=== PATIENT | male | born 1970 | race Caucasian/White ===

== ENCOUNTER 2017-08-30 15:19 | Inpatient (IN) | payer OTHER, BC ==
[~2017-08-30] VITALS: Ht 172.7 cm; Wt 65.7 kg
[2017-08-30] VITALS (8 sets, daily range): BP systolic 126–139; BP diastolic 58–85; PULSE 92–113; RESP 16; TEMP 99–99.7; O2SAT 95–100
[~2017-08-30 15:19] MED LIST: DEXAMETHASONE SOD PHOS 4 MG/ML VIAL IV ONE; LACTATED RINGER'S 1000 ML INJ 2,000 ML IV ONE; ONDANSETRON HCL 4 MG/2 ML VIAL IV ONE; PHENYLEPH/NS 1000 MCG/10 ML SYR IV ONE; PHENYLEPHRINE HCL 10 MG/ML VIAL IV ONE; ROCURONIUM INJ 50 MG/5 ML SYRINGE IV PUSH ONE
[2017-08-30] MEDS ORDERED: ONDANSETRON HCL 4 MG/2 ML VIAL ONE (15:23)
[2017-08-30] MEDS ORDERED: MORPHINE SULFATE 4 MG/ML INJ ONE (15:23)
[2017-08-30] MEDS ORDERED: ETOMIDATE 20 MG/10 ML VIAL ONE (15:26)
[2017-08-30] MEDS ORDERED: PROPOFOL 1000 MG/100 ML INJ 100 ML ONE (15:26)
[2017-08-30] MEDS ORDERED: DIPHTH/TETANUS/ACEL PERTUSSIS (BOOSTER) 0.5 ML VIAL/PFS IM ONE (15:27)
[2017-08-30] MEDS ORDERED: ceFAZolin 2 GM PREMIX 50 ML ONE (15:39)
[2017-08-30] MEDS ORDERED: GENTAMICIN 80 MG PREMIX 100 ML ONE (15:40)
[2017-08-30] MEDS ORDERED: PROPOFOL 200 MG/20 ML AMP ONE ×2 (15:41→15:53)
[2017-08-30 16:02] LABS: AUTOMATED NEUTROPHIL # 9.4 TH/MM3 (1.8-7.7); BASOPHIL # 0.1 TH/MM3 (0-0.2); BASOPHIL % 0.4 % (0.0-2.0); EOSINOPHIL # 0.1 TH/MM3 (0-0.4); EOSINOPHIL % 0.8 % (0.0-4.0); HEMATOCRIT 43.8 % (39.0-51.0); HEMOGLOBIN 14.5 GM/DL (13.0-17.0); LYMPH % 30.5 % (9.0-44.0); LYMPHOCYTE # 4.6 TH/MM3 (1.0-4.8); MEAN CELL VOLUME 89.1 FL (80.0-100.0); MEAN CORPUSCULAR HEMOGLOBIN 29.4 PG (27.0-34.0); MEAN PLATELET VOLUME 8.4 FL (7.0-11.0); MONO % 5.6 % (0.0-8.0); MONOCYTE # 0.8 TH/MM3 (0-0.9); NEUT % 62.7 % (16.0-70.0); PLATELET COUNT 297 TH/MM3 (150-450); RED BLOOD COUNT 4.92 MIL/MM3 (4.50-5.90)
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
[2017-08-30] MEDS ORDERED: ceFAZolin 2 GM PREMIX 50 ML IV STA (16:14)
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
[2017-08-30] MEDS ORDERED: PROPOFOL 1000 MG/100 ML BTL IV ONE (16:15)
[2017-08-30] MEDS ORDERED: ETOMIDATE 20 MG/10 ML VIAL IV PUSH ONE (16:15)
[2017-08-30] MEDS ORDERED: GENTAMICIN/SOD CHL 80 MG/100 ML IV ONE (16:15)
[2017-08-30] MEDS ORDERED: SUCCINYLCHOLINE CHLORIDE 200 MG/10 ML VIAL IV ONE (16:15)
[2017-08-30] MEDS ORDERED: ROCURONIUM INJ 50 MG/5 ML VIAL IV ONE (16:15)
[2017-08-30] MEDS ORDERED: MORPHINE SULFATE 4 MG/ML INJ IV PUSH ONE (16:15)
[2017-08-30] MEDS ORDERED: ONDANSETRON HCL 4 MG/2 ML VIAL IV PUSH ONE (16:15)
[2017-08-30] MEDS ORDERED: SODIUM CHLOR 0.9% 1000 ML INJ 1,000 ML IV ONE (16:15)
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
[2017-08-30 16:18] LABS: INTERNATIONAL NORMALIZED RATIO 1.1 RATIO; PROTHROMBIN TIME - PATIENT 11.1 SEC (9.8-11.6)
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
[2017-08-30] MEDS ORDERED: IOHEXOL 350 MG/ML 10 ML VIAL (for RAD DIAG) IVCONTRAST ONE (16:25)
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
[2017-08-30] MEDS ORDERED: SENNOSIDES 8.6 MG TAB PO PRN (16:45)
[2017-08-30] MEDS ORDERED: fentaNYL DRIP 250 ML IV PRN ×2 (16:45→17:15)
[2017-08-30] MEDS ORDERED: BISACODYL 10 MG SUPP RECTAL PRN (16:45)
[2017-08-30] MEDS ORDERED: LACTULOSE SYRUP 20 GM/30 ML CUP PO PRN (16:45)
[2017-08-30] MEDS ORDERED: MISCELLANEOUS NURSING INFORMATION XX SCH (16:45)
[2017-08-30] MEDS: PANTOPRAZOLE SODIUM 40 MG VIAL IV PUSH SCH (16:45)
[2017-08-30] MEDS ORDERED: PROPOFOL 1000 MG/100 ML INJ 100 ML IV PRN ×2 (16:45→17:15)
[2017-08-30] MEDS ORDERED: CHLORHEXIDINE GLUCONATE 2 % 1 PACK (2 CLOTHS) TOP PRN (16:45)
[2017-08-30] MEDS ORDERED: MAGNESIUM HYDROXIDE SUSP 30 ML CUP PO PRN (16:45)
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
[2017-08-30] MEDS ORDERED: KETAMINE HCL 500 MG/5 ML VIAL ONE (18:19)
[2017-08-30] MEDS ORDERED: fentaNYL CITRATE 250 MCG/5 ML AMP ONE (18:19)
[2017-08-30] MEDS ORDERED: GENTAMICIN SULFATE 80 MG/2 ML VIAL ONE (18:20)
[2017-08-30] MEDS ORDERED: oxyCODONE/ACETAMINOPHEN 5 MG/325 MG TAB PO PRN ×2 (20:30)
[2017-08-30] MEDS ORDERED: MORPHINE SULFATE 8 MG/ML INJ IV PUSH PRN (20:30)
[2017-08-30] MEDS ORDERED: SODIUM CHLORIDE 0.9% FLUSH 10 ML FLUSH IV FLUSH PRN (20:30)
[2017-08-30] MEDS ORDERED: KETOROLAC TROMETHAMINE 30 MG/ML (IVP) VIAL IVP ONE (20:30)
[2017-08-30] MEDS ORDERED: ONDANSETRON HCL 4 MG/2 ML VIAL IV PUSH PRN (20:30)
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
[2017-08-30] MEDS: DOCUSATE SODIUM 50 MG/SENNA 8.6 MG TAB PO SCH (21:00)
[2017-08-30] MEDS: SODIUM CHLORIDE 0.9% FLUSH 10 ML FLUSH IV FLUSH SCH (21:00)
[2017-08-30] MEDS: CHLORHEXIDINE 0.12% (ORAL KIT) 15 ML CUP MT SCH (21:20)
--- NOTE | 2017-08-30 22:03 | RADRPT ---
EXAM DATE/TIME: 08/30/2017 19:16 [facility] COMPARISON: WRIST RIGHT ONE VIEW, August 30, 2017, 15:21. INDICATIONS : External fixation of the right elbow in operation. MEDICAL HISTORY : None. SURGICAL HISTORY : None. ENCOUNTER: Initial ACUITY: 1 day PAIN SCORE: Non-responsive. LOCATION: Right upper extremity elbow FINDINGS: Intraoperative examination demonstrates a severely comminuted, mildly displaced fracture involving th e distal right radius. There is fracture of the ulnar styloid as well. There are several images of the elbow present. There is a 100% displaced, distracted fracture involvi ng the olecranon. There is a fragment of the olecranon which is fractured off and displaced superiorl y. The remainder of the olecranon is inferior in location. The radial head appears intact but is part ially obscured by metallic artifact. CONCLUSION: 1. Distracted fracture of the olecranon as above. 2. Severely comminuted fracture of the distal radius. 3. Fracture of the ulnar styloid. Lucius Trevino MD on August 30, 2017 at 21:59 Board Certified Radiologist. This report was verified electronically.
[2017-08-30] MEDS: VANCOMYCIN INJ 1,000 MG in SODIUM CHLOR 0.9% 250 ML INJ 250 ML IV SCH (22:36)
[2017-08-30] MEDS: DOCUSATE SODIUM 100 MG CAP PO SCH (22:37)
[2017-08-31] VITALS (16 sets, daily range): BP systolic 90–120; BP diastolic 50–67; PULSE 65–84; RESP 14–16; TEMP 98.6–99.3; O2SAT 94–100
[2017-08-31] MEDS: PROPOFOL 1000 MG/100 ML INJ 100 ML IV PRN ×4 (01:10→20:36)
[2017-08-31] MEDS ORDERED: ICU - MAGNESIUM OXIDE 400 MG TAB PO PRN (01:15)
[2017-08-31] MEDS ORDERED: ICU - SODIUM PHOSPHATE 30 MMOL/NS 250 ML IV PRN ×2 (01:15)
[2017-08-31] MEDS ORDERED: POTASSIUM CHLORIDE 25 MEQ EFFERVESCENT TAB PO PRN (01:15)
[2017-08-31] MEDS ORDERED: ICU - CALL ORDERING PHYSICIAN PRN (01:15)
[2017-08-31] MEDS ORDERED: ICU - POTASSIUM PHOSPHATE MONOBASIC 500 MG TAB PO PRN (01:15)
[2017-08-31] MEDS ORDERED: ICU - D/C ICU ELECTROLYTE ORDERS PRN (01:15)
[2017-08-31] MEDS ORDERED: ICU - MAGNESIUM SULFATE 4 GM/NS 100 ML IV PRN ×2 (01:15)
[2017-08-31] MEDS ORDERED: ICU - MAGNESIUM SULFATE 2 GM/NS 100 ML IV PRN ×2 (01:15)
[2017-08-31] MEDS ORDERED: ICU - POTASSIUM PHOSPHATE 30 MMOL/NS 250 ML IV PRN ×2 (01:15)
[2017-08-31] MEDS: CHLORHEXIDINE GLUCONATE 2 % 1 PACK (2 CLOTHS) TOP SCH (04:00)
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
[2017-08-31 06:02] LABS: INTERNATIONAL NORMALIZED RATIO 1.1 RATIO; PROTHROMBIN TIME - PATIENT 11.2 SEC (9.8-11.6)
[2017-08-31 06:10] LABS: AUTOMATED NEUTROPHIL # 7.1 TH/MM3 (1.8-7.7); BASOPHIL % 0.3 % (0.0-2.0); BICARBONATE 25.4 MEQ/L (21.0-32.0); CREATININE 1.53 MG/DL (0.60-1.30); HEMATOCRIT 35.1 % (39.0-51.0); HEMOGLOBIN 11.9 GM/DL (13.0-17.0); LYMPH % 9.3 % (9.0-44.0); LYMPHOCYTE # 0.8 TH/MM3 (1.0-4.8); MAGNESIUM 1.9 MG/DL (1.5-2.5); MEAN CELL VOLUME 89.4 FL (80.0-100.0); MEAN CORPUSCULAR HEMOGLOBIN 30.3 PG (27.0-34.0); MEAN CORPUSCULAR HGB CONC 33.9 % (32.0-36.0); MEAN PLATELET VOLUME 8.9 FL (7.0-11.0); MONO % 6.4 % (0.0-8.0); MONOCYTE # 0.5 TH/MM3 (0-0.9); PLATELET COUNT 206 TH/MM3 (150-450); RED BLOOD COUNT 3.92 MIL/MM3 (4.50-5.90); RED CELL DISTRIBUTION WIDTH 13.2 % (11.6-17.2); WHITE BLOOD COUNT 8.4 TH/MM3 (4.0-11.0)
[2017-08-31] MEDS: cefTRIAXone INJ 1,000 MG in SODIUM CHLORIDE 0.9% INJ 100 ML IV SCH ×2 (06:31→17:17)
[2017-08-31] MEDS: PANTOPRAZOLE SODIUM 40 MG VIAL IV PUSH SCH (09:32)
[2017-08-31] MEDS: SODIUM CHLORIDE 0.9% FLUSH 10 ML FLUSH IV FLUSH SCH ×2 (09:33→20:35)
[2017-08-31] MEDS: CHLORHEXIDINE 0.12% (ORAL KIT) 15 ML CUP MT SCH ×2 (09:33→20:34)
[2017-08-31] MEDS: VANCOMYCIN INJ 1,000 MG in SODIUM CHLOR 0.9% 250 ML INJ 250 ML IV SCH ×2 (09:33→20:35)
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
--- NOTE | 2017-08-31 10:56 | PD.ORT.PN ---
Subjective Subjective Remarks Patient in ISC. Patient intubated. Family at bedside Objective Vitals Vital Signs Date Time Temp Pulse Resp B/P (MAP) Pulse Ox O2 Delivery O2 Flow Rate FiO2 08/31/17 07:51 100 40 08/31/17 06:00 73 08/31/17 04:00 99.3 80 16 115/60 (78) 99 08/31/17 04:00 60 08/31/17 04:00 80 08/31/17 02:00 80 08/31/17 01:25 100 60 08/31/17 00:00 99.3 84 16 120/67 (84) 100 08/31/17 00:00 70 08/31/17 00:00 84 08/31/17 00:00 81 08/30/17 22:00 96 08/30/17 21:30 99.7 104 16 126/58 (80) 95 08/30/17 21:30 92 08/30/17 21:20 80 08/30/17 21:13 100 80 08/30/17 19:00 100 Mechanical Ventilator 80 08/30/17 18:00 92 08/30/17 17:13 100 100 08/30/17 17:10 100 AMBU BAG 100 08/30/17 17:00 99.0 113 16 139/85 (103) 99 08/30/17 16:45 100 100 I/O 08/30/17 08/30/17 08/30/17 08/31/17 08/31/17 08/31/17 07:00 15:00 23:00 07:00 15:00 23:00 Intake Total 2200 ml Output Total 50 ml 1471 ml Balance 2150 ml -1471 ml Intake IV Total 2200 ml Output Urine Total 1300 ml Gastric Drainage Total 10 ml Chest Tube Drainage Total 161 ml Estimated Blood Loss 50 ml Result Diagram: 08/31/17 0525 08/31/17 0525 Other Results Laboratory Tests Test 08/30/17 15:46 08/31/17 05:25 Prothromb Time International Ratio 1.1 RATIO 1.1 RATIO Prothrombin Time 11.1 SEC (9.8-11.6) 11.2 SEC (9.8-11.6) Imaging Last 24 hours Impressions Chest X-Ray 08/31/17 0000 Signed Impressions: Service Date/Time: Thursday, August 31, 2017 03:25 - CONCLUSION: 1. Multiple right-sided rib fractures with pulmonary parenchymal contusion. Developing bibasilar atelectatic changes. 2. Right-sided thoracostomy tube without pneumothorax. Appropriate positioning of the endotracheal and nasogastric tubes. 3. Right clavicular fracture. Adan Chambers MD Pelvis X-Ray 08/30/17 1521 Signed Impressions: Service Date/Time: Wednesday, August 30, 2017 15:21 - CONCLUSION: 1. Negative examination. Lucius Trevino MD Head CT 08/30/17 1521 Signed Impressions: Service Date/Time: Wednesday, August 30, 2017 16:06 - CONCLUSION: 1. No acute intracranial abnormality is identified. Lucius Trevino MD Chest X-Ray 08/30/17 152 Signed Impressions: Service Date/Time: Wednesday, August 30, 2017 15:21 - CONCLUSION: 1. Multiple right rib fractures and right clavicle fracture with questionable right lung contusion and pneumothorax. Austin Jarquin MD Chest CT 08/30/17 1521 Signed Impressions: Service Date/Time: Wednesday, August 30, 2017 16:20 - CONCLUSION: 1. Fracture of the right third through ninth ribs. Some of the ribs are fractured in 2 places. 2. Small right-sided pneumothorax with parenchymal contusion. There is a right-sided chest tube already in good position. 3. Endotracheal tube in satisfactory position. 4. The aorta and great vessels appear intact. Lucius Trevino MD Cervical Spine CT 08/30/17 1521 Signed Impressions: Service Date/Time: Wednesday, August 30, 2017 16:09 - CONCLUSION: 1. Negative for fracture or subluxation of the cervical spine. No canal stenosis. 2. Endotracheal tube and right chest tube present. Right rib fractures. Austin Jraquin MD Abdomen/Pelvis CT 08/30/17 1521 Signed Impressions: Service Date/Time: Wednesday, August 30, 2017 16:20 - CONCLUSION: Numerous lower right rib fractures with small right pneumothorax and hemothorax and dependent consolidation in both lungs. Right chest tube present. No solid visceral injury identified within the abdomen or pelvis. No free air or free fluid. Austin Jarquin MD Objective Remarks Patient intubated. External fixator and bandages on right arm appears stable. Distal cap refill is satisfactory. Unable to test neurologic examination dressing dry. Left arm in a long arm splint. Capillary refill satisfactory. Unable to test neurologic examination Assessment & Plan Assessment and Plan Open fracture dislocation right elbow. Fracture right distal radius, intra-articular, comminuted. Fracture left distal radius with distal radial ulnar joint dislocation ( Galeazzi variant) Surgery: Irrigation and debridement, external fixator right elbow and right wrist. PLAN: IV antibiotics. This patient will required further surgery including fixation of the right elbow and right wrist and left forearm. Case discussed with parents who are at bedside. Complexity and gravity of situation was expressed to the family. Wesley Turk MD Aug 31, 2017 10:56
--- NOTE | 2017-08-31 12:43 | EKG ---
Date Performed: 08/31/2017 Time Performed: 10:48:22 PTAGE: 89 years EKG: Sinus rhythm NORMAL ECG NO PREVIOUS TRACING DOCTOR: Gilbert Reinoso Interpretating Date/Time 08/31/2017 12:41:51
[2017-08-31] MEDS: ENOXAPARIN SODIUM 30 MG/0.3 ML SYRINGE SQ SCH ×2 (12:46→23:43)
[2017-08-31] MEDS: DOCUSATE SODIUM 50 MG/SENNA 8.6 MG TAB PO SCH ×2 (14:51→20:35)
[2017-08-31] MEDS: DOCUSATE SODIUM 100 MG CAP PO SCH ×2 (14:51→20:35)
[2017-08-31] MEDS: fentaNYL DRIP 250 ML IV PRN (17:17)
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
[2017-08-31] MEDS ORDERED: VENL75TA (19:12)
[2017-08-31] MEDS: SODIUM CHLOR 0.9% 1000 ML INJ 1,000 ML IV SCH (23:44)
[2017-09-01] VITALS (16 sets, daily range): BP systolic 94–120; BP diastolic 52–59; PULSE 64–125; RESP 14–18; TEMP 97.5–101.5; O2SAT 88–100
[2017-09-01] MEDS: PROPOFOL 1000 MG/100 ML INJ 100 ML IV PRN ×5 (03:03→23:05)
[2017-09-01 03:51] LABS: AUTOMATED NEUTROPHIL # 6.8 TH/MM3 (1.8-7.7); BASOPHIL % 0.3 % (0.0-2.0); EOSINOPHIL % 0.2 % (0.0-4.0); HEMOGLOBIN 9.3 GM/DL (13.0-17.0); MEAN CORPUSCULAR HEMOGLOBIN 29.8 PG (27.0-34.0); MEAN CORPUSCULAR HGB CONC 33.2 % (32.0-36.0); MEAN PLATELET VOLUME 8.8 FL (7.0-11.0); MONO % 8.7 % (0.0-8.0); MONOCYTE # 0.8 TH/MM3 (0-0.9); NEUT % 69.8 % (16.0-70.0); PLATELET COUNT 157 TH/MM3 (150-450); RED BLOOD COUNT 3.11 MIL/MM3 (4.50-5.90); RED CELL DISTRIBUTION WIDTH 13.1 % (11.6-17.2); WHITE BLOOD COUNT 9.7 TH/MM3 (4.0-11.0)
[2017-09-01] MEDS: CHLORHEXIDINE GLUCONATE 2 % 1 PACK (2 CLOTHS) TOP SCH ×2 (04:00→23:15)
[2017-09-01 04:25] LABS: ALBUMIN 2.4 GM/DL (3.4-5.0); AST (GOT) 36 U/L (15-37); BICARBONATE 23.1 MEQ/L (21.0-32.0); BLOOD UREA NITROGEN 17 MG/DL (7-18); CALCIUM 7.7 MG/DL (8.5-10.1); CHLORIDE 112 MEQ/L (98-107); CREATININE 1.29 MG/DL (0.60-1.30); GLOMERULAR FILTRATION RATE 48 ML/MIN (>89); GLUCOSE,RANDOM 103 MG/DL (74-106); SODIUM (NA) 145 MEQ/L (136-145)
[2017-09-01 04:29] LABS: ALKALINE PHOSPHATASE 45 U/L (45-117); ALT (GPT) 29 U/L (12-78); TOTAL BILIRUBIN ADULT 0.2 MG/DL (0.2-1.0); TOTAL PROTEIN 4.8 GM/DL (6.4-8.2)
--- NOTE | 2017-09-01 04:49 | RADRPT ---
EXAM DATE/TIME: 09/01/2017 02:44 [facility] COMPARISON: CT THORAX W CONTRAST, August 30, 2017, 16:20. CHEST SINGLE AP, August 31, 2017, 3:25. INDICATIONS : Short of breath. MEDICAL HISTORY : None. SURGICAL HISTORY : None. ENCOUNTER: Subsequent ACUITY: 3 days PAIN SCORE: 0/10 LOCATION: Bilateral chest FINDINGS: ET tube tip well above the david. Gastric tube tip and side-port project within the stomach. Right chest tube tip remains projected in the upper medial right chest. There is persistent lateral pneum othorax the lower chest measuring 2 cm in width. Old right rib fractures stable. Stable amount of s ubcutaneous emphysema about the lateral right chest wall. CONCLUSION: 2 cm pneumothorax in the lower lateral right chest. Chest tube stable in position in the upper media l right chest. Min Aj MD on September 01, 2017 at 4:46 Board Certified Radiologist. This report was verified electronically.
[2017-09-01] MEDS: cefTRIAXone INJ 1,000 MG in SODIUM CHLORIDE 0.9% INJ 100 ML IV SCH ×2 (06:00→18:14)
[2017-09-01] MEDS: SODIUM CHLORIDE 0.9% FLUSH 10 ML FLUSH IV FLUSH SCH ×2 (09:00→20:45)
[2017-09-01] MEDS: fentaNYL DRIP 250 ML IV PRN ×2 (09:20→23:08)
[2017-09-01] MEDS: DOCUSATE SODIUM 50 MG/SENNA 8.6 MG TAB PO SCH ×2 (09:22→21:01)
[2017-09-01] MEDS: PANTOPRAZOLE SODIUM 40 MG VIAL IV PUSH SCH (09:22)
[2017-09-01] MEDS: DOCUSATE SODIUM 100 MG CAP PO SCH ×2 (09:22→21:01)
[2017-09-01] MEDS: CHLORHEXIDINE 0.12% (ORAL KIT) 15 ML CUP MT SCH ×2 (09:23→20:45)
[2017-09-01] MEDS: VANCOMYCIN INJ 1,000 MG in SODIUM CHLOR 0.9% 250 ML INJ 250 ML IV SCH (09:23)
[2017-09-01] MEDS: SODIUM CHLOR 0.9% 1000 ML INJ 1,000 ML IV SCH ×2 (10:20→21:01)
[2017-09-01] MEDS: ENOXAPARIN SODIUM 30 MG/0.3 ML SYRINGE SQ SCH (10:20)
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
[2017-09-01] MEDS: ARTIFICIAL TEARS OPTH SOLN 15 ML BTL EACH EYE SCH ×4 (12:00→23:15)
[2017-09-01] MEDS: VENLAFAXINE HCL XR 75 MG CAP PO SCH (12:11)
--- NOTE | 2017-09-01 13:23 | RADRPT ---
EXAM DATE/TIME: 09/01/2017 12:32 [facility] COMPARISON: CHEST SINGLE AP, September 01, 2017, 2:44. INDICATIONS : Evaluate respiratory distress. MEDICAL HISTORY : None. SURGICAL HISTORY : None. ENCOUNTER: Initial ACUITY: 2 days PAIN SCORE: Non-responsive. LOCATION: Bilateral chest FINDINGS: Stable ETT, NGT and right-sided chest tube in place. Trace residual right lateral basilar pneumothora x improved from prior exam. Improved subcutaneous emphysema. Persistent airspace disease at the lung bases. Cardiomediastinal contours are stable. Remainder of the exam is unchanged. CONCLUSION: 1. Stable right chest tube with improved trace right basilar pneumothorax. 2. Minimal bibasilar airspace disease, likely atelectasis. Michael Boles MD on September 01, 2017 at 13:19 Board Certified Radiologist. This report was verified electronically.
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
[2017-09-01] MEDS: ACETAMINOPHEN 1000 MG/100 ML 100 ML IV PRN (16:30)
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
--- NOTE | 2017-09-01 21:37 | PD.ORT.PN ---
Subjective Subjective Remarks Intubated Objective Vitals Vital Signs Date Time Temp Pulse Resp B/P (MAP) Pulse Ox O2 Delivery O2 Flow Rate FiO2 09/01/17 20:13 100 60 09/01/17 19:00 100 Mechanical Ventilator 60 09/01/17 16:59 100 70 09/01/17 16:00 101.5 125 18 120/56 (77) 96 09/01/17 16:00 70 09/01/17 12:09 88 65 09/01/17 12:00 98.8 118 18 120/57 (78) 94 09/01/17 12:00 50 09/01/17 09:55 98 50 09/01/17 09:09 99 55 09/01/17 08:00 50 09/01/17 08:00 97.5 74 14 99/54 (69) 99 09/01/17 07:00 99 Mechanical Ventilator 50 09/01/17 06:00 70 09/01/17 05:16 95 60 09/01/17 04:00 90 09/01/17 04:00 98.4 90 14 97/55 (69) 96 09/01/17 04:00 60 09/01/17 02:00 64 09/01/17 00:07 98 40 09/01/17 00:00 40 09/01/17 00:00 98.6 68 14 94/52 (66) 98 09/01/17 00:00 65 08/31/17 22:00 65 I/O 08/31/17 08/31/17 08/31/17 09/01/17 09/01/17 09/01/17 07:00 15:00 23:00 07:00 15:00 23:00 Intake Total 2250 ml 1000 ml 4053 ml 1360 ml Output Total 1471 ml 610 ml 715 ml 795 ml Balance -1471 ml 1640 ml 285 ml 4053 ml 565 ml Intake IV Total 2250 ml 1000 ml 4053 ml 1300 ml Tube Feeding 60 ml Output Urine Total 1300 ml 550 ml 625 ml 700 ml Gastric Drainage Total 10 ml 10 ml 10 ml 10 ml Chest Tube Drainage Total 161 ml 50 ml 80 ml 85 ml Result Diagram: 09/01/17 0324 09/01/17 0324 Imaging Last 24 hours Impressions Chest X-Ray 08/31/17 0000 Signed Impressions: Service Date/Time: Thursday, August 31, 2017 03:25 - CONCLUSION: 1. Multiple right-sided rib fractures with pulmonary parenchymal contusion. Developing bibasilar atelectatic changes. 2. Right-sided thoracostomy tube without pneumothorax. Appropriate positioning of the endotracheal and nasogastric tubes. 3. Right clavicular fracture. Adan Chambers MD Pelvis X-Ray 08/30/17 1521 Signed Impressions: Service Date/Time: Wednesday, August 30, 2017 15:21 - CONCLUSION: 1. Negative examination. Lucius Trevino MD Head CT 08/30/17 1521 Signed Impressions: Service Date/Time: Wednesday, August 30, 2017 16:06 - CONCLUSION: 1. No acute intracranial abnormality is identified. Lucius Trevino MD Chest X-Ray 08/30/17 1521 Signed Impressions: Service Date/Time: Wednesday, August 30, 2017 15:21 - CONCLUSION: 1. Multiple right rib fractures and right clavicle fracture with questionable right lung contusion and pneumothorax. Austin Jarquin MD Chest CT 08/30/17 1521 Signed Impressions: Service Date/Time: Wednesday, August 30, 2017 16:20 - CONCLUSION: 1. Fracture of the right third through ninth ribs. Some of the ribs are fractured in 2 places. 2. Small right-sided pneumothorax with parenchymal contusion. There is a right-sided chest tube already in good position. 3. Endotracheal tube in satisfactory position. 4. The aorta and great vessels appear intact. Lucius Trevino MD Cervical Spine CT 08/30/17 1521 Signed Impressions: Service Date/Time: Wednesday, August 30, 2017 16:09 - CONCLUSION: 1. Negative for fracture or subluxation of the cervical spine. No canal stenosis. 2. Endotracheal tube and right chest tube present. Right rib fractures. Austin Jarquin MD Abdomen/Pelvis CT 08/30/17 1521 Signed Impressions: Service Date/Time: Wednesday, August 30, 2017 16:20 - CONCLUSION: Numerous lower right rib fractures with small right pneumothorax and hemothorax and dependent consolidation in both lungs. Right chest tube present. No solid visceral injury identified within the abdomen or pelvis. No free air or free fluid. Austin Jarquin MD Objective Remarks Patient intubated. External fixator and bandages on right arm appears stable. Distal cap refill is satisfactory. Unable to test neurologic examination dressing dry. Left arm in a long arm splint. Capillary refill satisfactory. Unable to test neurologic examination Assessment & Plan Assessment and Plan Open fracture dislocation right elbow- grade 3 Fracture right distal radius, intra-articular, comminuted. Fracture left distal radius with distal radial ulnar joint dislocation ( Galeazzi variant) POD-2 : Irrigation and debridement, external fixator right elbow and right wrist. PLAN: IV antibiotics. This patient will required further surgery including fixation of the right elbow and right wrist and left forearm. NPO Will transfer orthopedic care to Cornel Varela Jr., MD Sep 01, 2017 21:37
[2017-09-02] VITALS (16 sets, daily range): BP systolic 100–117; BP diastolic 55–63; PULSE 84–120; RESP 18; TEMP 98.2–100.4; O2SAT 95–100
[2017-09-02] MEDS: ARTIFICIAL TEARS OPTH SOLN 15 ML BTL EACH EYE SCH ×5 (03:07→21:20)
[2017-09-02] MEDS: PROPOFOL 1000 MG/100 ML INJ 100 ML IV PRN ×3 (04:25→18:30)
[2017-09-02] MEDS ORDERED: LACTATED RINGER'S 1000 ML IV PRN (05:30)
[2017-09-02] MEDS ORDERED: CHLORHEXIDINE GLUCONATE 2 % 1 PACK (2 CLOTHS) TOPICAL PRN (05:30)
[2017-09-02] MEDS ORDERED: POVIDONE IODINE 5% (ANTISEPSIS KIT) 4 APPLICATIONS EACH NARE PRN (05:30)
[2017-09-02] MEDS ORDERED: SODIUM CHLORID 0.9% 500 ML IV PRN (05:30)
[2017-09-02] MEDS ORDERED: METOPROLOL TARTRATE 25 MG TAB PO PRN (05:30)
[2017-09-02 05:35] LABS: AUTOMATED NEUTROPHIL # 6.3 TH/MM3 (1.8-7.7); BASOPHIL % 0.4 % (0.0-2.0); EOSINOPHIL # 0.1 TH/MM3 (0-0.4); EOSINOPHIL % 1.7 % (0.0-4.0); HEMATOCRIT 26.1 % (39.0-51.0); HEMOGLOBIN 8.7 GM/DL (13.0-17.0); LYMPHOCYTE # 1.3 TH/MM3 (1.0-4.8); MEAN CELL VOLUME 90.1 FL (80.0-100.0); MEAN CORPUSCULAR HGB CONC 33.4 % (32.0-36.0); MEAN PLATELET VOLUME 9.3 FL (7.0-11.0); MONO % 6.9 % (0.0-8.0); MONOCYTE # 0.6 TH/MM3 (0-0.9); PLATELET COUNT 153 TH/MM3 (150-450); WHITE BLOOD COUNT 8.4 TH/MM3 (4.0-11.0)
[2017-09-02 05:44] LABS: ALBUMIN 2.1 GM/DL (3.4-5.0); AST (GOT) 55 U/L (15-37); BICARBONATE 23.3 MEQ/L (21.0-32.0); BLOOD UREA NITROGEN 13 MG/DL (7-18); CALCIUM 8.1 MG/DL (8.5-10.1); CHLORIDE 113 MEQ/L (98-107); CREATININE 1.08 MG/DL (0.60-1.30); GLOMERULAR FILTRATION RATE 59 ML/MIN (>89); GLUCOSE,RANDOM 95 MG/DL (74-106); SODIUM (NA) 145 MEQ/L (136-145)
[2017-09-02 05:45] LABS: ALT (GPT) 24 U/L (12-78)
[2017-09-02 05:48] LABS: ALKALINE PHOSPHATASE 49 U/L (45-117); TOTAL BILIRUBIN ADULT 0.3 MG/DL (0.2-1.0)
[2017-09-02] MEDS: ACETAMINOPHEN 1000 MG/100 ML 100 ML IV PRN (06:04)
[2017-09-02] MEDS: cefTRIAXone INJ 1,000 MG in SODIUM CHLORIDE 0.9% INJ 100 ML IV SCH ×2 (06:04→16:38)
--- NOTE | 2017-09-02 06:41 | RADRPT ---
EXAM DATE/TIME: 09/02/2017 04:49 [facility] COMPARISON: CHEST SINGLE AP, September 01, 2017, 12:32. INDICATIONS : Respiratory distress. MEDICAL HISTORY : None. SURGICAL HISTORY : None. ENCOUNTER: Subsequent ACUITY: 3 days PAIN SCORE: Non-responsive. LOCATION: Bilateral chest FINDINGS: ET tube tip well above the david. Gastric tube traverses the [id number]. Right chest drainage t ube remains projected at the right apex. Old right rib fractures. Patchy areas of infiltrate at the left base with loss of delineation of medial left hemidiaphragm. No evidence of pneumothorax. CONCLUSION: Interval development of patchy left lower lung infiltrates. Min Aj MD on September 02, 2017 at 6:39 Board Certified Radiologist. This report was verified electronically.
--- NOTE | 2017-09-02 07:02 | PD.ORT.PN ---
Subjective Subjective Remarks s/p bilateral wrist fxs s/p right elbow fx intubated/sedated Objective Vitals Vital Signs Date Time Temp Pulse Resp B/P (MAP) Pulse Ox O2 Delivery O2 Flow Rate FiO2 09/02/17 06:34 18 09/02/17 06:00 102 09/02/17 04:00 50 09/02/17 04:00 88 09/02/17 04:00 100.4 88 18 106/56 (73) 100 09/02/17 03:55 99 50 09/02/17 02:00 100 09/02/17 00:19 99 50 09/02/17 00:00 100.0 98 18 111/55 (73) 100 09/02/17 00:00 97 09/02/17 00:00 50 09/01/17 22:00 93 09/01/17 20:13 100 60 09/01/17 20:00 60 09/01/17 20:00 100.0 95 18 108/59 (75) 100 09/01/17 20:00 92 09/01/17 19:00 100 Mechanical Ventilator 60 09/01/17 16:59 100 70 09/01/17 16:00 101.5 125 18 120/56 (77) 96 09/01/17 16:00 70 09/01/17 12:09 88 65 09/01/17 12:00 98.8 118 18 120/57 (78) 94 09/01/17 12:00 50 09/01/17 09:55 98 50 09/01/17 09:09 99 55 09/01/17 08:00 50 09/01/17 08:00 97.5 74 14 99/54 (69) 99 09/01/17 07:00 99 Mechanical Ventilator 50 I/O 09/01/17 09/01/17 09/01/17 09/02/17 09/02/17 09/02/17 07:00 15:00 23:00 07:00 15:00 23:00 Intake Total 1000 ml 4053 ml 1360 ml 554 ml Output Total 715 ml 795 ml 420 ml Balance 285 ml 4053 ml 565 ml 134 ml Intake IV Total 1000 ml 4053 ml 1300 ml 450 ml Tube Feeding 60 ml 104 ml Output Urine Total 625 ml 700 ml 300 ml Stool Total 0 ml Gastric Drainage Total 10 ml 10 ml Chest Tube Drainage Total 80 ml 85 ml 120 ml Result Diagram: 09/02/17 0505 09/02/17 0505 Imaging Last 24 hours Impressions Chest X-Ray 08/31/17 0000 Signed Impressions: Service Date/Time: Thursday, August 31, 2017 03:25 - CONCLUSION: 1. Multiple right-sided rib fractures with pulmonary parenchymal contusion. Developing bibasilar atelectatic changes. 2. Right-sided thoracostomy tube without pneumothorax. Appropriate positioning of the endotracheal and nasogastric tubes. 3. Right clavicular fracture. Adan Chambers MD Pelvis X-Ray 08/30/17 152 Signed Impressions: Service Date/Time: Wednesday, August 30, 2017 15:21 - CONCLUSION: 1. Negative examination. Lucius Trevino MD Head CT 08/30/17 152 Signed Impressions: Service Date/Time: Wednesday, August 30, 2017 16:06 - CONCLUSION: 1. No acute intracranial abnormality is identified. Lucius Trevino MD Chest X-Ray 08/30/17 152 Signed Impressions: Service Date/Time: Wednesday, August 30, 2017 15:21 - CONCLUSION: 1. Multiple right rib fractures and right clavicle fracture with questionable right lung contusion and pneumothorax. Austin Jarquin MD Chest CT 08/30/17 152 Signed Impressions: Service Date/Time: Wednesday, August 30, 2017 16:20 - CONCLUSION: 1. Fracture of the right third through ninth ribs. Some of the ribs are fractured in 2 places. 2. Small right-sided pneumothorax with parenchymal contusion. There is a right-sided chest tube already in good position. 3. Endotracheal tube in satisfactory position. 4. The aorta and great vessels appear intact. Lucius Trevino MD Cervical Spine CT 08/30/17 1521 Signed Impressions: Service Date/Time: Wednesday, August 30, 2017 16:09 - CONCLUSION: 1. Negative for fracture or subluxation of the cervical spine. No canal stenosis. 2. Endotracheal tube and right chest tube present. Right rib fractures. Austin Jarquin MD Abdomen/Pelvis CT 08/30/17 1521 Signed Impressions: Service Date/Time: Wednesday, August 30, 2017 16:20 - CONCLUSION: Numerous lower right rib fractures with small right pneumothorax and hemothorax and dependent consolidation in both lungs. Right chest tube present. No solid visceral injury identified within the abdomen or pelvis. No free air or free fluid. Austin Jarquin MD Objective Remarks RUE: +exfix of elbow. pin sites clean. good cap refill of fingers LUE: +sugar tong splint. intact. +cap refill Assessment & Plan Assessment and Plan 1) Open fracture dislocation right elbow- grade 3 2) Fracture right distal radius, intra-articular, comminuted. 3) Fracture left distal radius with distal radial ulnar joint dislocation ( Galeazzi variant) POD 3 : Irrigation and debridement, external fixator right elbow and right wrist. PLAN: consents npo surgery today with Dr Greenwood for ORIF of bilateral wrists Marc Rivero/First Efrain BEDOYA Sep 02, 2017 07:02
[2017-09-02] MEDS: CHLORHEXIDINE 0.12% (ORAL KIT) 15 ML CUP MT SCH ×2 (07:32→21:20)
[2017-09-02] MEDS: PANTOPRAZOLE SODIUM 40 MG VIAL IV PUSH SCH (07:32)
[2017-09-02] MEDS: SODIUM CHLORIDE 0.9% FLUSH 10 ML FLUSH IV FLUSH SCH ×2 (07:32→21:20)
[2017-09-02] MEDS: VENLAFAXINE HCL XR 75 MG CAP PO SCH (07:33)
[2017-09-02] MEDS: SODIUM CHLOR 0.9% 1000 ML INJ 1,000 ML IV SCH (08:33)
[2017-09-02] MEDS: DOCUSATE SODIUM 50 MG/SENNA 8.6 MG TAB PO SCH ×2 (08:33→21:26)
[2017-09-02] MEDS: DOCUSATE SODIUM 100 MG CAP PO SCH (08:33)
--- NOTE | 2017-09-02 08:44 | EKG ---
Date Performed: 09/02/2017 Time Performed: 02:36:32 PTAGE: 89 years EKG: Sinus tachycardia. Inferior/lateral ST-T changes are nonspecific Borderline ECG PREVIOUS TRACING : 08/31/2017 10.48 Compared to previous tracing, heart rate has increased, non specific ST/T changes are now present. DOCTOR: Solitario Rodriguez Interpretating Date/Time 09/02/2017 08:26:35
[2017-09-02] MEDS ORDERED: FUROSEMIDE 20 MG/2 ML VIAL IV PUSH ONE (10:15)
[2017-09-02] MEDS: fentaNYL DRIP 250 ML IV PRN (10:38)
[2017-09-02] MEDS ORDERED: VANCOMYCIN HCL 1000 MG VIAL ONE (12:40)
[2017-09-02] MEDS ORDERED: BUPIVACAINE/EPINEPHRINE 0.25% 50 ML VIAL ONE ×2 (13:16→13:18)
[2017-09-02] MEDS ORDERED: ceFAZolin 2 GM PREMIX 50 ML IV ONE (13:22)
[2017-09-02] MEDS ORDERED: VANCOMYCIN HCL 1000 MG VIAL IV ONE (13:23)
[2017-09-02] MEDS ORDERED: GENTAMICIN SULFATE 80 MG/2 ML VIAL IRRIGATION ONE (13:25)
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
--- NOTE | 2017-09-02 14:23 | RADRPT ---
EXAM DATE/TIME: 09/02/2017 13:27 [facility] COMPARISON: No previous studies available for comparison. INDICATIONS : Post-op ORIF right distal radius fracture. MEDICAL HISTORY : None. SURGICAL HISTORY : External fixator right distal radius. ENCOUNTER: Subsequent ACUITY: 4 - 6 days PAIN SCORE: Non-responsive. LOCATION: Right upper extremity FINDINGS: Status post internal fixation of the fractures involving the distal radius. There is good position an d alignment of the fracture fragments. Hardware is grossly intact. There is good alignment at the rad iocarpal joint. CONCLUSION: Good position and alignment on this postoperative study. Douglas Baker MD on September 02, 2017 at 14:20 Board Certified Radiologist. This report was verified electronically.
[2017-09-02] MEDS ORDERED: LACTATED RINGER'S 1000 ML INJ 1,000 ML IV SCH ×2 (14:44→15:23)
--- NOTE | 2017-09-02 14:55 | PD.OP ---
cc: Edward Arvizu MD Operative Report Date of Surgery: Sep 02, 2017 Preoperative Diagnosis: Oh fracture dislocation, right distal radial shaft fracture, right distal radius intra-articular fracture, left distal radius fracture, dislocation of left distal radial ulnar joint Postoperative Diagnosis: Procedure: Revision of external fixation right elbow, open reduction internal fixation right radial shaft, open reduction internal fixation right distal radius intra- articular fracture, open reduction internal fixation left distal radius fracture , open reduction and pinning of left distal radial ulnar joint Surgeon: Edward Arvizu Obstetrics Tech(s): MICHELLE Castaneda PA-C The surgical procedure was assisted by my physician press assistant and feeder. My P.A. presence was necessary throughout this case for the manipulation and positioning of the surgical extremity. My P.A. was assisting me throughout the duration of this procedure. The skill set of a physician press assistant and feeder was medically necessary to complete this procedure. During the surgical case the surgical garment inspector was working at the back table and the physician press assistant and feeder was directly assisting me. Operation and Findings: Implants used: Synthes Plan of activity: Nonweightbearing on bilateral arms Patient was seen and evaluated preoperatively and found to have a displaced bilateral distal radius fractures with dislocation of left distal radial ulnar joint. Informed consent was obtained after detailed discussion of risk and benefits including bleeding, infection, injury to arteries, nerves, and blood vessels, weakness and numbness of hand, and tendon rupture. Informed consent was obtained. Patient received IV antibiotics prior to incision. Timeout procedure was performed. At this a portion of the right arm excellent fixator was removed. Clamps were loosened. Pins were left in place. Bars and clamps were removed so that the elbow could be straightened. Bilateral arms were prepped with alcohol followed by Hibiclens and draped usual sterile fashion. Attention was first turned towards the right arm. A standard volar approach to the distal radius was utilized. A 6 inch incision was made over the FCR tendon. Tendon sheath was opened. Both the distal radius and radial shaft fractures were exposed through this incision. Pronator quadratus was elevated up. The fracture site was now visualized. The radial shaft fracture was reduced first. Fracture tenaculums were used to aid in reduction. The radial shaft fracture keyed in anatomic alignment. K wires were used to hold provisional fixation. Next attention was turned to the distal radius intra- articular fracture. The fracture did have intra-articular extension. Traction was applied. The articular surface was reduced. Fracture fragments were manipulated to achieve excellent reduction. K wires were used to hold provisional fixation. Fluoroscopy confirmed appropriate alignment of fracture. A long distal radius plate was selected to use band both the distal radius and radial shaft fractures. Plate was provisionally fixed to bone with K wires. 2.7 and 2.4 cortical screws were used to compress plate to bone. Fluoroscopy confirmed appropriate alignment of fracture with well-placed hardware. Multiple 2.4 locking screws were now placed distally. Screws were predrilled and measured for appropriate length. 2 additional screws were placed into the shaft. K wires were removed. Final fluoroscopy revealed excellent of fracture with well-placed hardware. The wound was thoroughly irrigated with sterile saline. Subcutaneous tissue was closed with 3-0 Vicryl and skin was closed with deny. At this point was turned to the external fixator. The 2 original pins in the radial shaft were removed. An additional pin was placed in the midshaft of the radius. An external fixator construct was now created to span the elbow. The elbow was gently reduced. The external fixator construct was now tightened to hold reduction. Fluoroscopy confirmed appropriate alignment of the fracture. Sterile dressings were applied. Attention was now turned towards the left arm. A standard volar approach to the distal radius was utilized. A 5 inch incision was made over the FCR tendon. Tendon sheath was opened. Pronator quadratus was elevated up. The fracture site was now visualized. The fracture was extra-articular. Traction was applied. The fractures keyed in anatomic alignment. There was some comminution. Each fracture fragment was manipulated to achieve excellent reduction. Multiple K wires result fracture fragments. Fracture fragments were manipulated to achieve excellent reduction. K wires were used to hold provisional fixation. Fluoroscopy confirmed appropriate alignment of fracture. A Synthes plate was selected. Plate was provisionally fixed to bone with K wires. 3.5 and 2.7 cortical screws were used to compress plate to bone. Fluoroscopy confirmed appropriate alignment of fracture with well-placed hardware. Multiple 2.7 locking screws were now placed distally. Multiple 3.5 cortical screws were placed into the shaft. Screws were predrilled and measured for appropriate length. K wires were removed. Final fluoroscopy revealed excellent of fracture with well-placed hardware. At this point attention was turned to the distal radial ulnar joint. The joint was very unstable. Multiple attempts were made at closed reduction. There appeared to be soft tissue blocking reduction. Next a 2 inch incision was made over the dorsal aspect of the distal ulna. Subcutaneous tissue dissected with Bovie. The distal end of the ulna was visualized. The extensor tendons were trapped between the ulna and the radius. The capsule and extensor tendons were carefully elevated out of the joint surface. The distal radial ulnar joint was now reduced. The joint was relatively unstable. The arm was supinated and held in a reduced position. A 2 mm Steinmann pin was now placed through the ulna into the radius hold the distal radial ulnar joint reduced. The wound was thoroughly irrigated with sterile saline. Subcutaneous tissue was closed with 3 -0 Vicryl and skin was closed with 3-0 nylon. Sterile dressings were applied with Xeroform, 4 x 4, soft roll, and a well padded splint. Patient was transferred to intensive care in stable condition. Edward Arvizu MD Sep 02, 2017 14:55
--- NOTE | 2017-09-02 15:26 | RADRPT ---
EXAM DATE/TIME: 09/02/2017 00:00 [facility] COMPARISON: No previous studies available for comparison. INDICATIONS : Post op ORIF wrist. MEDICAL HISTORY : None. SURGICAL HISTORY : External fixator right distal radius. ENCOUNTER: Subsequent ACUITY: 4 - 6 days PAIN SCORE: Non-responsive. LOCATION: Left Wrist FINDINGS: Status post internal fixation of the distal radius. There is good alignment of the fracture fragments . The hardware is grossly intact. CONCLUSION: Good position and alignment on this postoperative study. Douglas Baker MD on September 02, 2017 at 15:23 Board Certified Radiologist. This report was verified electronically.
[2017-09-02] MEDS ORDERED: ceFAZolin 2 GM PREMIX 50 ML IV SCH ×2 (15:30→21:00)
--- NOTE | 2017-09-02 15:36 | RADRPT ---
EXAM DATE/TIME: 09/02/2017 14:26 [facility] COMPARISON: ELBOW RIGHT LIMITED (AP & LAT), August 30, 2017, 19:16. INDICATIONS : Post op right elbow. MEDICAL HISTORY : None. SURGICAL HISTORY : External fixator right distal radius. ENCOUNTER: Subsequent ACUITY: 4 - 6 days PAIN SCORE: Non-responsive. LOCATION: Right Elbow. FINDINGS: Two view examination of the right elbow demonstrates comminuted fracture of the distal radius and pro ximal ulna. The fixation device is in place. CONCLUSION: External fixator device in place. Douglas Baker MD on September 02, 2017 at 15:31 Board Certified Radiologist. This report was verified electronically.
[2017-09-02] MEDS ORDERED: GENTAMICIN 80 MG PREMIX 100 ML IV SCH (18:00)
[2017-09-02] MEDS: GENTAMICIN INJ 80 MG in SODIUM CHLORIDE 0.9% INJ 100 ML IV SCH (18:40)
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
[2017-09-02] MEDS: CEFAZOLIN INJ 2,000 MG in SODIUM CHLORIDE 0.9% INJ 100 ML IV SCH (21:48)
[2017-09-03] VITALS (17 sets, daily range): BP systolic 98–113; BP diastolic 54–63; PULSE 87–120; RESP 18–20; TEMP 99.3–100.8; O2SAT 97–100
[2017-09-03] MEDS: ARTIFICIAL TEARS OPTH SOLN 15 ML BTL EACH EYE SCH ×6 (00:58→21:02)
[2017-09-03] MEDS: PROPOFOL 1000 MG/100 ML INJ 100 ML IV PRN ×5 (01:33→22:52)
[2017-09-03] MEDS: fentaNYL DRIP 250 ML IV PRN ×2 (01:36→16:25)
[2017-09-03] MEDS: GENTAMICIN INJ 80 MG in SODIUM CHLORIDE 0.9% INJ 100 ML IV SCH ×3 (01:41→17:08)
[2017-09-03] MEDS: ENOXAPARIN SODIUM 30 MG/0.3 ML SYRINGE SQ SCH ×2 (02:22→14:51)
[2017-09-03] MEDS: CHLORHEXIDINE GLUCONATE 2 % 1 PACK (2 CLOTHS) TOP SCH (04:00)
[2017-09-03] MEDS: CEFAZOLIN INJ 2,000 MG in SODIUM CHLORIDE 0.9% INJ 100 ML IV SCH ×3 (05:18→21:01)
--- NOTE | 2017-09-03 05:52 | RADRPT ---
EXAM DATE/TIME: 09/03/2017 04:24 [facility] COMPARISON: CHEST SINGLE AP, September 02, 2017, 4:49. INDICATIONS : Shortness of breath. MEDICAL HISTORY : Non-responsive SURGICAL HISTORY : Non-responsive ENCOUNTER: Subsequent ACUITY: 4 - 6 days PAIN SCORE: Non-responsive. LOCATION: Bilateral chest FINDINGS: ET tube tip well above the david. Gastric tube versus the [id number]. Right chest T. stable pos ition upper right chest. Increasing subcutaneous emphysema about the lateral right chest wall. Inte rval development of lower lateral right pneumothorax separation of the pleura measuring 1.6 cm. Pers istent consolidation in the left lower lung with loss of delineation of the left hemidiaphragm. CONCLUSION: 1. Interval development of 1.6 cm lower lateral right pneumothorax with chest tube in place. 2. Persistent left lower lobe consolidation. Min Aj MD on September 03, 2017 at 5:48 Board Certified Radiologist. This report was verified electronically.
[2017-09-03 06:13] LABS: AUTOMATED NEUTROPHIL # 5.7 TH/MM3 (1.8-7.7); BASOPHIL % 0.3 % (0.0-2.0); EOSINOPHIL # 0.2 TH/MM3 (0-0.4); EOSINOPHIL % 2.4 % (0.0-4.0); HEMATOCRIT 23.8 % (39.0-51.0); HEMOGLOBIN 8.2 GM/DL (13.0-17.0); LYMPH % 13.8 % (9.0-44.0); LYMPHOCYTE # 1.1 TH/MM3 (1.0-4.8); MEAN CELL VOLUME 90.1 FL (80.0-100.0); MEAN CORPUSCULAR HEMOGLOBIN 30.9 PG (27.0-34.0); MEAN CORPUSCULAR HGB CONC 34.3 % (32.0-36.0); MEAN PLATELET VOLUME 8.9 FL (7.0-11.0); MONO % 8.1 % (0.0-8.0); MONOCYTE # 0.6 TH/MM3 (0-0.9); NEUT % 75.4 % (16.0-70.0); PLATELET COUNT 181 TH/MM3 (150-450); RED BLOOD COUNT 2.64 MIL/MM3 (4.50-5.90); WHITE BLOOD COUNT 7.6 TH/MM3 (4.0-11.0)
[2017-09-03 06:40] LABS: ALBUMIN 1.9 GM/DL (3.4-5.0); ALT (GPT) 23 U/L (12-78); AST (GOT) 55 U/L (15-37); BICARBONATE 25.4 MEQ/L (21.0-32.0); BLOOD UREA NITROGEN 11 MG/DL (7-18); CALCIUM 7.5 MG/DL (8.5-10.1); CHLORIDE 113 MEQ/L (98-107); CREATININE 0.96 MG/DL (0.60-1.30); GLOMERULAR FILTRATION RATE 67 ML/MIN (>89); GLUCOSE,RANDOM 115 MG/DL (74-106); SODIUM (NA) 147 MEQ/L (136-145)
[2017-09-03 06:43] LABS: ALKALINE PHOSPHATASE 53 U/L (45-117); TOTAL BILIRUBIN ADULT 0.3 MG/DL (0.2-1.0); TOTAL PROTEIN 5.2 GM/DL (6.4-8.2)
--- NOTE | 2017-09-03 07:33 | RADRPT ---
EXAM DATE/TIME: 09/03/2017 06:51 [facility] COMPARISON: CHEST SINGLE AP, September 03, 2017, 4:24. INDICATIONS : Subcutaneous air. MEDICAL HISTORY : Unobtainable. SURGICAL HISTORY : Unobtainable. ENCOUNTER: Subsequent ACUITY: 4 - 6 days PAIN SCORE: Non-responsive. LOCATION: Bilateral chest FINDINGS: A single view of the chest demonstrates cardiomegaly with bibasilar densities. There is also density overlying the right upper lobe. Right-sided chest tube unchanged. No definite pneumothorax. Extensive subcutaneous emphysema bilaterally. Nasogastric tube with tip in stomach. Right jugular central line in stable position. Endotracheal tube is also unchanged. Osseous structures are intact. CONCLUSION: 1. Right-sided chest tube without definite pneumothorax. 2. Extensive subcutaneous emphysema. 3. Cardiomegaly with bibasilar and right upper lobe densities. Chago Snyder MD on September 03, 2017 at 7:30 Board Certified Radiologist. This report was verified electronically.
--- NOTE | 2017-09-03 08:15 | PD.ORT.PN ---
Subjective Subjective Remarks POD 1 s/p ORIF bilateral wrists s/p right elbow fx s/p right clavicle fx intubated/sedated nurse reports significant swelling of right shoulder area and scrotum Objective Vitals Vital Signs Date Time Temp Pulse Resp B/P (MAP) Pulse Ox O2 Delivery O2 Flow Rate FiO2 09/03/17 07:42 100 100 09/03/17 06:00 111 09/03/17 04:00 110 09/03/17 04:00 100.0 105 18 104/61 (75) 97 09/03/17 04:00 60 09/03/17 02:00 101 09/03/17 00:34 98 60 09/03/17 00:00 99.3 96 18 98/54 (69) 97 09/03/17 00:00 102 09/03/17 00:00 60 09/02/17 22:00 111 09/02/17 20:00 111 09/02/17 20:00 98 60 09/02/17 20:00 99.0 111 18 117/59 (78) 98 09/02/17 20:00 60 09/02/17 19:00 Mechanical Ventilator 40.00 60 09/02/17 18:00 94 09/02/17 16:00 50 09/02/17 16:00 94 09/02/17 16:00 98.2 94 18 100/55 (70) 96 09/02/17 16:00 97 70 09/02/17 15:30 95 09/02/17 12:15 95 100 09/02/17 12:00 98.6 120 18 111/58 (75) 97 09/02/17 12:00 120 09/02/17 12:00 50 09/02/17 10:00 84 I/O 09/02/17 09/02/17 09/02/17 09/03/17 09/03/17 09/03/17 07:00 15:00 23:00 07:00 15:00 23:00 Intake Total 554 ml 1550 ml 700 ml Output Total 420 ml 3900 ml 1275 ml 570 ml Balance 134 ml -2350 ml -575 ml -570 ml Intake IV Total 450 ml 1550 ml 600 ml Tube Feeding 104 ml Tube Irrigant 100 ml Output Urine Total 300 ml 800 ml 1175 ml 500 ml Stool Total 0 ml 0 ml Chest Tube Drainage Total 120 ml 100 ml 70 ml Estimated Blood Loss 100 ml Other 3000 ml # Bowel Movements 0 Result Diagram: 09/03/17 0530 09/03/17 0530 Imaging Last 24 hours Impressions Chest X-Ray 08/31/17 0000 Signed Impressions: Service Date/Time: Thursday, August 31, 2017 03:25 - CONCLUSION: 1. Multiple right-sided rib fractures with pulmonary parenchymal contusion. Developing bibasilar atelectatic changes. 2. Right-sided thoracostomy tube without pneumothorax. Appropriate positioning of the endotracheal and nasogastric tubes. 3. Right clavicular fracture. Adan Chambers MD Pelvis X-Ray 08/30/17 1521 Signed Impressions: Service Date/Time: Wednesday, August 30, 2017 15:21 - CONCLUSION: 1. Negative examination. Lucius Trevino MD Head CT 08/30/17 152 Signed Impressions: Service Date/Time: Wednesday, August 30, 2017 16:06 - CONCLUSION: 1. No acute intracranial abnormality is identified. Lucius Trevino MD Chest X-Ray 08/30/17 1521 Signed Impressions: Service Date/Time: Wednesday, August 30, 2017 15:21 - CONCLUSION: 1. Multiple right rib fractures and right clavicle fracture with questionable right lung contusion and pneumothorax. Austin Jarquin MD Chest CT 08/30/17 1521 Signed Impressions: Service Date/Time: Wednesday, August 30, 2017 16:20 - CONCLUSION: 1. Fracture of the right third through ninth ribs. Some of the ribs are fractured in 2 places. 2. Small right-sided pneumothorax with parenchymal contusion. There is a right-sided chest tube already in good position. 3. Endotracheal tube in satisfactory position. 4. The aorta and great vessels appear intact. Lucius Trevino MD Cervical Spine CT 08/30/17 1521 Signed Impressions: Service Date/Time: Wednesday, August 30, 2017 16:09 - CONCLUSION: 1. Negative for fracture or subluxation of the cervical spine. No canal stenosis. 2. Endotracheal tube and right chest tube present. Right rib fractures. Austin Jarquin MD Abdomen/Pelvis CT 08/30/17 1521 Signed Impressions: Service Date/Time: Wednesday, August 30, 2017 16:20 - CONCLUSION: Numerous lower right rib fractures with small right pneumothorax and hemothorax and dependent consolidation in both lungs. Right chest tube present. No solid visceral injury identified within the abdomen or pelvis. No free air or free fluid. Austin Jarquin MD Objective Remarks RUE: +exfix of elbow and wrist. pin sites clean. good cap refill of fingers. + bruising and swelling of shoulder LUE: +sugar tong splint. intact. +cap refill Assessment & Plan Assessment and Plan 1) Open fracture dislocation right elbow- grade 3 2) Fracture right distal radius, intra-articular, comminuted. 3) Fracture left distal radius with distal radial ulnar joint dislocation ( Galeazzi variant) 4) Right Clavicle Fx POD 1 : ORIF with revision of exfix of right distal radius fx Revision of exfix right elbow ORIF of left distal radius fx PLAN: NWB BUE pin care to right arm BID maintain splint on left arm at all times plan for possible removal of exfix with ORIF of right elbow on friday CT scan shows right clavicle fx. plan for nonop treatment Marc Rivero/Fur Glazer ELKE Sep 03, 2017 08:15
[2017-09-03] MEDS: SODIUM CHLORIDE 0.9% FLUSH 10 ML FLUSH IV FLUSH SCH ×2 (08:28→21:01)
[2017-09-03] MEDS: CHLORHEXIDINE 0.12% (ORAL KIT) 15 ML CUP MT SCH ×2 (08:28→21:02)
[2017-09-03] MEDS: VENLAFAXINE HCL XR 75 MG CAP PO SCH (08:28)
[2017-09-03] MEDS: PANTOPRAZOLE SODIUM 40 MG VIAL IV PUSH SCH (08:28)
[2017-09-03] MEDS: DOCUSATE SODIUM 50 MG/SENNA 8.6 MG TAB PO SCH ×2 (08:29→21:01)
[2017-09-03] MEDS ORDERED: LIDOCAINE HCL 1% PF 30 ML VIAL INFIL ONE (09:30)
--- NOTE | 2017-09-03 13:20 | RADRPT ---
EXAM DATE/TIME: 09/03/2017 12:46 [facility] COMPARISON: CHEST SINGLE AP, September 03, 2017, 6:51. INDICATIONS : S/p chest tube placements. MEDICAL HISTORY : None. SURGICAL HISTORY : external fixator right distal radius ENCOUNTER: Initial ACUITY: 4 - 6 days PAIN SCORE: Non-responsive. LOCATION: Bilateral chest FINDINGS: The heart is normal in size. The mediastinal contours are within normal limits. The right jugular berenice tral line in satisfactory position. The endotracheal tube is somewhat high just above the level of th e clavicles. There are [address] on the right. There is a large bore and a small bore tube. No residu al pneumothorax is seen. There is subcutaneous emphysema within the chest wall. There is mild consolidation of the left lower lobe. Osseous structures demonstrate multiple displaced rib fractures on the right. CONCLUSION: 1. There are 2 chest tubes on the right. Both appear in satisfactory position. 2. Extensive subcutaneous emphysema along the chest wall. 3. Consolidative change at the left lung base. 4. Tracheal tube is somewhat high with the tip just above the clavicles. Lucius Trevino MD on September 03, 2017 at 13:16 Board Certified Radiologist. This report was verified electronically.
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
[2017-09-03] MEDS: ACETAMINOPHEN 1000 MG/100 ML 100 ML IV PRN (21:09)
[2017-09-04] VITALS (21 sets, daily range): BP systolic 97–135; BP diastolic 54–66; PULSE 73–121; RESP 18–22; TEMP 99.7–101.9; O2SAT 90–99
[2017-09-04] MEDS: GENTAMICIN INJ 80 MG in SODIUM CHLORIDE 0.9% INJ 100 ML IV SCH ×3 (02:39→18:11)
[2017-09-04] MEDS: ENOXAPARIN SODIUM 30 MG/0.3 ML SYRINGE SQ SCH (02:41)
--- NOTE | 2017-09-04 03:52 | RADRPT ---
EXAM DATE/TIME: 09/04/2017 02:27 [facility] COMPARISON: CHEST SINGLE AP, September 03, 2017, 12:46. INDICATIONS : Respiratory distress. MEDICAL HISTORY : None. SURGICAL HISTORY : None. ENCOUNTER: Subsequent ACUITY: 4 - 6 days PAIN SCORE: Non-responsive. LOCATION: Bilateral chest FINDINGS: ET tube tip well above the david. Gastric tube traverses the [id number]. Right internal jugular catheter tip at the cavoatrial junction. Right chest catheter and right chest tubes stable in posit ion. There is a lower lateral right pneumothorax separation of the pleura measuring 11 mm.. Stable consolidation in the left lower lung. CONCLUSION: 1. 11 mm lower lateral right pneumothorax with [address] right chest tubes in place. 2. Stable left lower lobe segmental consolidation. Min Aj MD on September 04, 2017 at 3:48 Board Certified Radiologist. This report was verified electronically.
[2017-09-04] MEDS: PROPOFOL 1000 MG/100 ML INJ 100 ML IV PRN ×5 (03:56→21:07)
[2017-09-04] MEDS: fentaNYL DRIP 250 ML IV PRN ×2 (03:57→18:28)
[2017-09-04] MEDS: ARTIFICIAL TEARS OPTH SOLN 15 ML BTL EACH EYE SCH ×6 (03:57→20:00)
[2017-09-04] MEDS: CHLORHEXIDINE GLUCONATE 2 % 1 PACK (2 CLOTHS) TOP SCH (03:57)
[2017-09-04] MEDS: ACETAMINOPHEN 1000 MG/100 ML 100 ML IV PRN ×2 (04:16→11:39)
[2017-09-04 04:26] LABS: AUTOMATED NEUTROPHIL # 5.6 TH/MM3 (1.8-7.7); BASOPHIL % 0.2 % (0.0-2.0); EOSINOPHIL # 0.2 TH/MM3 (0-0.4); HEMATOCRIT 24.3 % (39.0-51.0); HEMOGLOBIN 8.2 GM/DL (13.0-17.0); LYMPHOCYTE # 1.3 TH/MM3 (1.0-4.8); MEAN CELL VOLUME 89.8 FL (80.0-100.0); MEAN CORPUSCULAR HEMOGLOBIN 30.3 PG (27.0-34.0); MEAN CORPUSCULAR HGB CONC 33.8 % (32.0-36.0); MONO % 9.6 % (0.0-8.0); MONOCYTE # 0.8 TH/MM3 (0-0.9); NEUT % 70.2 % (16.0-70.0); PLATELET COUNT 211 TH/MM3 (150-450); WHITE BLOOD COUNT 7.9 TH/MM3 (4.0-11.0)
[2017-09-04 04:42] LABS: BICARBONATE 26.5 MEQ/L (21.0-32.0); CALCIUM 7.8 MG/DL (8.5-10.1); CREATININE 0.95 MG/DL (0.60-1.30)
[2017-09-04] MEDS: CEFAZOLIN INJ 2,000 MG in SODIUM CHLORIDE 0.9% INJ 100 ML IV SCH ×3 (04:45→21:07)
--- NOTE | 2017-09-04 07:13 | PD.ORT.PN ---
Subjective Subjective Remarks POD 2 s/p ORIF bilateral wrists s/p right elbow fx s/p right clavicle fx intubated/sedated no changes Objective Vitals Vital Signs Date Time Temp Pulse Resp B/P (MAP) Pulse Ox O2 Delivery O2 Flow Rate FiO2 09/04/17 06:08 60 09/04/17 06:00 115 09/04/17 04:00 100.9 115 18 110/59 (76) 93 09/04/17 04:00 70 09/04/17 04:00 115 09/04/17 03:44 93 70 09/04/17 02:00 119 09/04/17 00:25 98 70 09/04/17 00:00 99.7 114 18 100/60 (73) 96 09/04/17 00:00 70 09/04/17 00:00 114 09/03/17 22:22 18 09/03/17 22:00 103 09/03/17 20:00 80 09/03/17 20:00 99.7 120 20 98/58 (71) 98 09/03/17 20:00 120 09/03/17 19:42 98 70 09/03/17 18:00 93 09/03/17 16:00 100.0 87 18 100/57 (71) 98 09/03/17 16:00 85 09/03/17 16:00 108 09/03/17 15:16 98 85 09/03/17 14:00 108 09/03/17 12:00 108 09/03/17 12:00 85 09/03/17 12:00 100.8 108 18 108/63 (78) 97 09/03/17 11:32 99 85 09/03/17 10:00 120 09/03/17 08:00 99.6 100 18 113/57 (75) 99 09/03/17 08:00 100 09/03/17 08:00 100 09/03/17 07:42 100 100 I/O 09/03/17 09/03/17 09/03/17 09/04/17 09/04/17 09/04/17 07:00 15:00 23:00 07:00 15:00 23:00 Intake Total 102 ml 395 ml 1024 ml Output Total 570 ml 520 ml 470 ml Balance -570 ml 102 ml -125 ml 554 ml Intake IV Total 102 ml 200 ml 624 ml Tube Feeding 45 ml 340 ml Tube Irrigant 150 ml 60 ml Output Urine Total 500 ml 500 ml 400 ml Chest Tube Drainage Total 70 ml 20 ml 70 ml # Bowel Movements 0 0 0 Result Diagram: 09/04/17 0400 09/04/17 0400 Imaging Last 24 hours Impressions Chest X-Ray 08/31/17 0000 Signed Impressions: Service Date/Time: Thursday, August 31, 2017 03:25 - CONCLUSION: 1. Multiple right-sided rib fractures with pulmonary parenchymal contusion. Developing bibasilar atelectatic changes. 2. Right-sided thoracostomy tube without pneumothorax. Appropriate positioning of the endotracheal and nasogastric tubes. 3. Right clavicular fracture. Adan Chambers MD Pelvis X-Ray 08/30/17 152 Signed Impressions: Service Date/Time: Wednesday, August 30, 2017 15:21 - CONCLUSION: 1. Negative examination. Lucius Trevino MD Head CT 08/30/17 152 Signed Impressions: Service Date/Time: Wednesday, August 30, 2017 16:06 - CONCLUSION: 1. No acute intracranial abnormality is identified. Lucius Tervino MD Chest X-Ray 08/30/17 1521 Signed Impressions: Service Date/Time: Wednesday, August 30, 2017 15:21 - CONCLUSION: 1. Multiple right rib fractures and right clavicle fracture with questionable right lung contusion and pneumothorax. Austin Jarquin MD Chest CT 08/30/17 1521 Signed Impressions: Service Date/Time: Wednesday, August 30, 2017 16:20 - CONCLUSION: 1. Fracture of the right third through ninth ribs. Some of the ribs are fractured in 2 [address]. 2. Small right-sided pneumothorax with parenchymal contusion. There is a right-sided chest tube already in good position. 3. Endotracheal tube in satisfactory position. 4. The aorta and great vessels appear intact. Lucius Trevino MD Cervical Spine CT 08/30/17 1521 Signed Impressions: Service Date/Time: Wednesday, August 30, 2017 16:09 - CONCLUSION: 1. Negative for fracture or subluxation of the cervical spine. No canal stenosis. 2. Endotracheal tube and right chest tube present. Right rib fractures. Austin Jarquin MD Abdomen/Pelvis CT 08/30/17 1521 Signed Impressions: Service Date/Time: Wednesday, August 30, 2017 16:20 - CONCLUSION: Numerous lower right rib fractures with small right pneumothorax and hemothorax and dependent consolidation in both lungs. Right chest tube present. No solid visceral injury identified within the abdomen or pelvis. No free air or free fluid. Austin Jarquin MD Objective Remarks RUE: +exfix of elbow and wrist. pin sites clean. good cap refill of fingers. + bruising and swelling of shoulder LUE: +sugar tong splint. intact. +cap refill Assessment & Plan Assessment and Plan 1) Open fracture dislocation right elbow- grade 3 2) Fracture right distal radius, intra-articular, comminuted. 3) Fracture left distal radius with distal radial ulnar joint dislocation ( Galeazzi variant) 4) Right Clavicle Fx POD 2 : ORIF with revision of exfix of right distal radius fx Revision of exfix right elbow ORIF of left distal radius fx with pinning of DRUJ PLAN: NWB BUE pin care to right arm BID maintain splint on left arm at all times npo after MN have sign consents - on chart surgery tomorrow for ORIF of right elbow and possible removal of exfix anticipate tomorrow to be final ortho surgery Marc Rivero/Landscape Account Manager [facility] Sep 04, 2017 07:13
[2017-09-04] MEDS: CHLORHEXIDINE 0.12% (ORAL KIT) 15 ML CUP MT SCH ×2 (08:00→20:00)
[2017-09-04] MEDS: SODIUM CHLORIDE 0.9% FLUSH 10 ML FLUSH IV FLUSH SCH ×2 (08:50→21:00)
[2017-09-04] MEDS: PANTOPRAZOLE SODIUM 40 MG VIAL IV PUSH SCH (08:57)
[2017-09-04] MEDS: VENLAFAXINE HCL XR 75 MG CAP PO SCH (08:57)
[2017-09-04] MEDS: LACTULOSE SYRUP 20 GM/30 ML CUP PO SCH (08:57)
[2017-09-04] MEDS: DOCUSATE SODIUM 50 MG/SENNA 8.6 MG TAB PO SCH ×2 (08:57→21:05)
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
--- NOTE | 2017-09-04 11:29 | RADRPT ---
EXAM DATE/TIME: 09/04/2017 11:02 [facility] COMPARISON: CT CERVICAL SPINE W/O CONTRAST, August 30, 2017, 16:09. CT ABDOMEN & PELVIS W CONTRAST, August 30 8, 16:20. CT BRAIN W/O CONTRAST, August 30, 2017, 16:06. INDICATIONS : Changes in mental status RADIATION DOSE: 56.35 CTDIvol (mGy) MEDICAL HISTORY : Pneamothorax SURGICAL HISTORY : Chest tube ENCOUNTER: Initial ACUITY: 1 day PAIN SCALE: Non-responsive LOCATION: cranial TECHNIQUE: Multiple contiguous axial images were obtained of the head. Using automated exposure control and adj ustment of the mA and/or kV according to patient size, radiation dose was kept as low as reasonably a chievable to obtain optimal diagnostic quality images. DICOM format image data is available electro nically for review and comparison. FINDINGS: CEREBRUM: Mouth through atrophy. The ventricles are normal for degree of atrophy. No evidence of midline shift , mass lesion, hemorrhage or acute infarction. No extra-axial fluid collections are seen. POSTERIOR FOSSA: The cerebellum and brainstem are intact. The 4th ventricle is midline. The cerebellopontine angle i s unremarkable. EXTRACRANIAL: The visualized portion of the orbits is intact. Subcutaneous emphysema in the infraorbital soft tissu es on the right. Underlying facial bones are intact. SKULL: The calvaria is intact. No evidence of skull fracture. CONCLUSION: 1. Infraorbital soft tissue emphysema, likely posttraumatic. 2. No acute intracranial abnormality or significant interval change. Michael Boles MD on September 04, 2017 at 11:23 Board Certified Radiologist. This report was verified electronically.
--- NOTE | 2017-09-04 11:44 | RADRPT ---
EXAM DATE/TIME: 09/04/2017 11:02 [facility] COMPARISON: CT THORAX W CONTRAST, August 30, 2017, 16:20. INDICATIONS : Contusions RADIATION DOSE: 12.88 CTDIvol (mGy) MEDICAL HISTORY : Pneumothorax SURGICAL HISTORY : Chest tube ENCOUNTER: Initial ACUITY: 1 day PAIN SCALE: Non-responsive LOCATION: chest TECHNIQUE: Volumetric scanning of the chest was performed. Using automated exposure control and adjustment of t he mA and/or kV according to patient size, radiation dose was kept as low as reasonably achievable to obtain optimal diagnostic quality images. DICOM format image data is available electronically for r eview and comparison. Follow-up recommendations for detected pulmonary nodules are based at a minimum on nodule size and pa tient risk factors according to Fleischner Society Guidelines. FINDINGS: A large bore right thoracostomy tube is situated external to the chest cavity in the right subscapula r region. A pigtail thoracostomy tube extends in the anterior right apex. There is moderate anterior pneumothorax in the mid to lower right chest. Mild dependent atelectasis or posterior lung contusion is present bilaterally. Minimal hemothorax or pleural effusion, right worse than left. Right jugular central line is in good position. Endotracheal tube and nasogastric tube are in good po sition. No evidence of mediastinal hematoma. Moderate subcutaneous emphysema. Multiple significantly displaced right-sided rib fractures. Moderately displaced right clavicle fracture. CONCLUSION: The large bore right thoracostomy tube is external to the chest cavity. Small pigtail thoracostomy tube is in good position, however there is persistent moderate anterior pn eumothorax in the mid to lower right chest. Mild lung contusions bilaterally. Minimal hemothorax, right worse than left. Gray Jimenez MD on September 04, 2017 at 11:35 Board Certified Radiologist. This report was verified electronically.
--- NOTE | 2017-09-04 14:56 | RADRPT ---
EXAM DATE/TIME: 09/04/2017 14:33 [facility] COMPARISON: CHEST SINGLE AP, September 04, 2017, 2:27. INDICATIONS : Right side chest tube placement. MEDICAL HISTORY : Pneumothorax. SURGICAL HISTORY : Chest tube. ENCOUNTER: Initial ACUITY: 1 day PAIN SCORE: Non-responsive. LOCATION: Right chest FINDINGS: There has been replacement or repositioning of right thoracostomy tube with resolution of pneumothora x. A small caliber apical pigtail catheter remains in place. Right central line since the SVC. Endotr acheal tube and nasogastric tube are stable in good position. Mild hazy bilateral pleuroparenchymal o pacities persist unchanged. Cardiac contours are stable. CONCLUSION: Repositioning or replacement of large bore right thoracostomy tube with resolution of pneumothorax. Gray Jimenez MD on September 04, 2017 at 14:53 Board Certified Radiologist. This report was verified electronically.
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
[2017-09-04] MEDS ORDERED: LIDOCAINE 1%/EPINEPHrine 1:100,000 SOLN 30 ML VIAL ONE (20:10)
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
--- NOTE | 2017-09-04 21:28 | RADRPT ---
EXAM DATE/TIME: 09/04/2017 20:22 [facility] COMPARISON: CHEST SINGLE AP, September 04, 2017, 14:33. INDICATIONS : Evaluate chest tube placement MEDICAL HISTORY : Pneumothorax. SURGICAL HISTORY : None. Chest tube. ENCOUNTER: Subsequent ACUITY: 1 day PAIN SCORE: Non-responsive. LOCATION: cranial FINDINGS: A single view of the chest demonstrates endotracheal tube in good position. NG enters stomach. 2 righ t-sided chest tubes without pneumothorax. Numerous right rib fractures. Bilateral mostly basilar airs pace disease. No significant pneumothorax. CONCLUSION: 1. Support apparatus as above without significant pneumothorax. Air in right chest wall. Bilateral mo stly basilar airspace disease similar to exam from earlier today. Austin Jarquin MD on September 04, 2017 at 21:24 Board Certified Radiologist. This report was verified electronically.
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
--- NOTE | 2017-09-04 22:30 | RADRPT ---
EXAM DATE/TIME: 09/04/2017 21:46 [facility] COMPARISON: CHEST SINGLE AP, September 04, 2017, 20:22. INDICATIONS : Status post chest tube placement. MEDICAL HISTORY : Pneumothorax. SURGICAL HISTORY : Chest tube placement. ENCOUNTER: Subsequent ACUITY: 1 day PAIN SCORE: Non-responsive. LOCATION: Bilateral chest FINDINGS: A single view of the chest demonstrates 2 right-sided chest tubes with small right pneumothorax. Mult iple right rib fractures. Air in the subcutaneous tissues. Endotracheal tube in good position. NG coi led in stomach. Right central line in right atrium. Mild basilar airspace disease. CONCLUSION: 1. Support apparatus as above. Basal airspace disease without significant effusion. Austin Jarquin MD on September 04, 2017 at 22:26 Board Certified Radiologist. This report was verified electronically.
[2017-09-05] VITALS (23 sets, daily range): BP systolic 104–158; BP diastolic 54–72; PULSE 75–112; RESP 18–21; TEMP 98.9–102.2; O2SAT 92–100
[2017-09-05] MEDS: PROPOFOL 1000 MG/100 ML INJ 100 ML IV PRN ×5 (01:14→20:29)
[2017-09-05] MEDS: GENTAMICIN INJ 80 MG in SODIUM CHLORIDE 0.9% INJ 100 ML IV SCH ×2 (02:39→09:03)
[2017-09-05] MEDS: ACETAMINOPHEN 1000 MG/100 ML 100 ML IV PRN ×2 (03:00→12:29)
[2017-09-05 03:39] LABS: BASOPHIL % 0.5 % (0.0-2.0); EOSINOPHIL # 0.2 TH/MM3 (0-0.4); EOSINOPHIL % 2.4 % (0.0-4.0); HEMATOCRIT 22.1 % (39.0-51.0); HEMOGLOBIN 7.5 GM/DL (13.0-17.0); LYMPH % 14.3 % (9.0-44.0); MEAN CELL VOLUME 88.8 FL (80.0-100.0); MEAN CORPUSCULAR HEMOGLOBIN 30.1 PG (27.0-34.0); MEAN CORPUSCULAR HGB CONC 33.9 % (32.0-36.0); MEAN PLATELET VOLUME 8.9 FL (7.0-11.0); MONO % 8.4 % (0.0-8.0); MONOCYTE # 0.6 TH/MM3 (0-0.9); NEUT % 74.4 % (16.0-70.0); PLATELET COUNT 227 TH/MM3 (150-450); RED BLOOD COUNT 2.49 MIL/MM3 (4.50-5.90); RED CELL DISTRIBUTION WIDTH 12.9 % (11.6-17.2); WHITE BLOOD COUNT 6.7 TH/MM3 (4.0-11.0)
[2017-09-05 03:57] LABS: PROTHROMBIN TIME - PATIENT 10.6 SEC (9.8-11.6)
[2017-09-05 03:58] LABS: CALCIUM 7.6 MG/DL (8.5-10.1); CREATININE 0.88 MG/DL (0.60-1.30)
[2017-09-05] MEDS: CHLORHEXIDINE GLUCONATE 2 % 1 PACK (2 CLOTHS) TOP SCH ×2 (04:00→23:20)
--- NOTE | 2017-09-05 04:34 | RADRPT ---
EXAM DATE/TIME: 09/05/2017 02:41 [facility] COMPARISON: CHEST SINGLE AP, September 04, 2017, 21:46. INDICATIONS : Follow up trauma, hemopneumothorax, and multiple rib fractures. MEDICAL HISTORY : None. SURGICAL HISTORY : None. ENCOUNTER: Subsequent ACUITY: 1 week PAIN SCORE: Non-responsive. LOCATION: Bilateral chest FINDINGS: A single AP semierect portable view of the chest was obtained and again demonstrates 2 right-sided ch est tubes in place with with apparent small apical pneumothorax again noted. Multiple right rib fract ures again noted with overlying subcutaneous emphysema. The endotracheal tube remains in place with t he tip approximately 3 cm above the david. A nasogastric tube is seen coursing through the esophagus and into the stomach. The heart size remains within normal limits. Mild coarse patchy opacity remain s at the lung bases. There is no definite effusion. CONCLUSION: 1. Stable appearance of small right apical pneumothorax and 2 right-sided chest tubes in place. 2. Mild patchy opacity remains at the lung bases. Wilman Bragg MD on September 05, 2017 at 4:30 Board Certified Radiologist. This report was verified electronically.
[2017-09-05] MEDS: ARTIFICIAL TEARS OPTH SOLN 15 ML BTL EACH EYE SCH ×7 (04:50→23:19)
[2017-09-05] MEDS: CEFAZOLIN INJ 2,000 MG in SODIUM CHLORIDE 0.9% INJ 100 ML IV SCH ×2 (05:07→12:28)
[2017-09-05] MEDS: fentaNYL DRIP 250 ML IV PRN ×2 (05:14→16:21)
[2017-09-05] MEDS: ICU - POTASSIUM CHLORIDE/AQUEOUS SOLN 40 MEQ/100 ML IVPB IV PRN (05:50)
--- NOTE | 2017-09-05 07:05 | PD.ORT.PN ---
Subjective Subjective Remarks POD 3 s/p ORIF bilateral wrists s/p right elbow fx s/p right clavicle fx intubated/sedated no changes Objective Vitals Vital Signs Date Time Temp Pulse Resp B/P (MAP) Pulse Ox O2 Delivery O2 Flow Rate FiO2 09/05/17 06:00 92 09/05/17 04:26 94 65 09/05/17 04:00 91 09/05/17 04:00 102.2 91 18 118/61 (80) 94 09/05/17 04:00 100 09/05/17 02:00 94 09/05/17 00:00 88 09/05/17 00:00 100 09/05/17 00:00 100.0 88 18 110/59 (76) 98 09/04/17 23:15 80 09/04/17 22:05 98 90 09/04/17 22:00 90 09/04/17 22:00 73 09/04/17 20:25 96 80 09/04/17 20:00 100.0 76 22 105/57 (73) 92 09/04/17 20:00 73 09/04/17 20:00 100 09/04/17 19:25 96 100 09/04/17 18:00 85 09/04/17 16:00 117 09/04/17 16:00 99.9 121 18 135/66 (89) 90 09/04/17 16:00 100 09/04/17 15:31 99 70 09/04/17 14:00 83 09/04/17 12:25 98 80 09/04/17 12:09 18 09/04/17 12:00 75 09/04/17 12:00 83 09/04/17 12:00 101.7 110 18 108/56 (73) 98 09/04/17 11:00 93 100 09/04/17 10:00 83 09/04/17 08:34 98 75 09/04/17 08:00 101.9 88 18 97/54 (68) 98 09/04/17 08:00 75 09/04/17 08:00 115 I/O 09/04/17 09/04/17 09/04/17 09/05/17 09/05/17 09/05/17 07:00 15:00 23:00 07:00 15:00 23:00 Intake Total 1024 ml 222 ml 770 ml 200 ml Output Total 470 ml 530 ml 540 ml Balance 554 ml 222 ml 240 ml -340 ml Intake IV Total 624 ml 222 ml 350 ml Tube Feeding 340 ml 420 ml 140 ml Tube Irrigant 60 ml 60 ml Output Urine Total 400 ml 375 ml 400 ml Stool Total 0 ml 0 ml Chest Tube Drainage Total 70 ml 155 ml 140 ml # Bowel Movements 0 Result Diagram: 09/05/17 0322 09/05/17 0322 Other Results Laboratory Tests Test 09/05/17 03:22 Prothromb Time International Ratio 1.0 RATIO Prothrombin Time 10.6 SEC (9.8-11.6) Imaging Last 24 hours Impressions Chest X-Ray 08/31/17 0000 Signed Impressions: Service Date/Time: Thursday, August 31, 2017 03:25 - CONCLUSION: 1. Multiple right-sided rib fractures with pulmonary parenchymal contusion. Developing bibasilar atelectatic changes. 2. Right-sided thoracostomy tube without pneumothorax. Appropriate positioning of the endotracheal and nasogastric tubes. 3. Right clavicular fracture. Adan Chambers MD Pelvis X-Ray 08/30/17 152 Signed Impressions: Service Date/Time: Wednesday, August 30, 2017 15:21 - CONCLUSION: 1. Negative examination. Lucius Trevino MD Head CT 08/30/17 152 Signed Impressions: Service Date/Time: Wednesday, August 30, 2017 16:06 - CONCLUSION: 1. No acute intracranial abnormality is identified. Lucius Trevino MD Chest X-Ray 08/30/17 152 Signed Impressions: Service Date/Time: Wednesday, August 30, 2017 15:21 - CONCLUSION: 1. Multiple right rib fractures and right clavicle fracture with questionable right lung contusion and pneumothorax. Austin Jarquin MD Chest CT 08/30/17 1521 Signed Impressions: Service Date/Time: Wednesday, August 30, 2017 16:20 - CONCLUSION: 1. Fracture of the right third through ninth ribs. Some of the ribs are fractured in [address]. 2. Small right-sided pneumothorax with parenchymal contusion. There is a right-sided chest tube already in good position. 3. Endotracheal tube in satisfactory position. 4. The aorta and great vessels appear intact. Lucius Trevino MD Cervical Spine CT 08/30/17 1521 Signed Impressions: Service Date/Time: Wednesday, August 30, 2017 16:09 - CONCLUSION: 1. Negative for fracture or subluxation of the cervical spine. No canal stenosis. 2. Endotracheal tube and right chest tube present. Right rib fractures. Austin Jarquin MD Abdomen/Pelvis CT 08/30/17 1521 Signed Impressions: Service Date/Time: Wednesday, August 30, 2017 16:20 - CONCLUSION: Numerous lower right rib fractures with small right pneumothorax and hemothorax and dependent consolidation in both lungs. Right chest tube present. No solid visceral injury identified within the abdomen or pelvis. No free air or free fluid. Austin Jarquin MD Objective Remarks RUE: +exfix of elbow and wrist. pin sites clean. good cap refill of fingers. + bruising and swelling of shoulder LUE: +sugar tong splint. intact. +cap refill Assessment & Plan Assessment and Plan 1) Open fracture dislocation right elbow- grade 3 2) Fracture right distal radius, intra-articular, comminuted. 3) Fracture left distal radius with distal radial ulnar joint dislocation ( Galeazzi variant) 4) Right Clavicle Fx POD 3 : ORIF with revision of exfix of right distal radius fx Revision of exfix right elbow ORIF of left distal radius fx with pinning of DRUJ PLAN: NWB BUE pin care to right arm BID maintain splint on left arm at all times give 2 units PRBC for low H/H surgery postponed due to patient not being stable enough to be turned lateral for procedure once patient stable, will plan for surgery of right elbow possibly fri/ npo after [place] friday aMrc Rivero/[employer] Whis[employer] ELKE Sep 05, 2017 07:05
[2017-09-05] MEDS: CHLORHEXIDINE 0.12% (ORAL KIT) 15 ML CUP MT SCH ×2 (08:37→20:35)
[2017-09-05] MEDS: SODIUM CHLORIDE 0.9% FLUSH 10 ML FLUSH IV FLUSH SCH ×2 (08:37→20:35)
[2017-09-05] MEDS: LACTULOSE SYRUP 20 GM/30 ML CUP PO SCH (08:37)
[2017-09-05] MEDS: VENLAFAXINE HCL XR 75 MG CAP PO SCH (08:37)
[2017-09-05] MEDS: DOCUSATE SODIUM 50 MG/SENNA 8.6 MG TAB PO SCH ×2 (08:38→20:29)
[2017-09-05] MEDS: PANTOPRAZOLE SODIUM 40 MG VIAL IV PUSH SCH (08:51)
--- NOTE | 2017-09-05 12:10 | MP ---
cc: Marsha Vasquez MD DATE OF OPERATION: 09/04/2017 PREOPERATIVE DIAGNOSIS: Hemopneumothorax, severe chest trauma to the right chest and occluded pigtail catheter. POSTOPERATIVE DIAGNOSIS: Hemopneumothorax, severe chest trauma to the right chest and occluded pigtail catheter. PROCEDURE PERFORMED: Removal of the pigtail catheter and placement of 20-Taiwanese anterior chest tube. SURGEON: Jose Roberto Vasquez MD. ANESTHESIA: 1% Xylocaine. ESTIMATED BLOOD LOSS: Minimal. DESCRIPTION OF PROCEDURE: The patient prepped and draped in the usual fashion, the area infiltrated with 1% Xylocaine. The old pigtail catheter was occluded. It was, therefore, removed. At this point, the patient was starting to develop subcutaneous emphysema as a result of the same. A small incision was made just lateral to the position with the pigtail catheter kirk and then this one is deepened to the chest wall, infiltrating as we went along with Xylocaine. The chest was entered with a Allie hemostat and some air escapes, 20-Taiwanese chest tube was placed in position, sutured with 0 silk. A chest x-ray obtained. The patient tolerated the procedure well and the ventilatory requirements immediately decreased. MD HALLIE Mc/JOSE FRANCISCO , 09:18 PM , 09:45 PM
--- NOTE | 2017-09-05 12:22 | RADRPT ---
EXAM DATE/TIME: 09/05/2017 11:48 [facility] COMPARISON: CT THORAX W/O CONTRAST, September 04, 2017, 11:02. INDICATIONS : Right pneumothorax; evaluate chest tube placement. RADIATION DOSE: 15.96 CTDIvol (mGy) MEDICAL HISTORY : Non-responsive. SURGICAL HISTORY : Non-responsive. ENCOUNTER: Initial ACUITY: 1 day PAIN SCALE: Non-responsive LOCATION: chest TECHNIQUE: Volumetric scanning of the chest was performed. Using automated exposure control and adjustment of t he mA and/or kV according to patient size, radiation dose was kept as low as reasonably achievable to obtain optimal diagnostic quality images. DICOM format image data is available electronically for r eview and comparison. Follow-up recommendations for detected pulmonary nodules are based at a minimum on nodule size and pa tient risk factors according to Fleischner Society Guidelines. FINDINGS: LUNGS: There is moderate to severe background emphysema. Moderate size right pneumothorax is present, slight ly decreased from yesterday's examination. The small bore pigtail pleural catheter present yesterday has been removed. 2 right chest tubes have been placed. The more anterior chest tube appears to exten d within the right upper lobe and terminates medially in the superior right medial hemithorax. The mo re lateral chest tube courses posteriorly posterior to the long and possibly within the fissure. Ther e is bilateral lower lung zone airspace consolidation and volume loss bilaterally. Trace pleural flui d is present. PLEURAE: There is trace pleural fluid. MEDIASTINUM: The heart and great vessels demonstrate no acute finding. Right IJ central line, ETT, and nasogastric tube remain present and in appropriate position. There are calcified mediastinal and right hilar lym ph nodes. AXILLAE: No lymphadenopathy is seen. There is air within the soft tissues in the right axilla. MUSCULOSKELETAL: There is a partially visualized right clavicle fracture. The right second through ninth ribs have dis placed fractures. MISCELLANEOUS: There is extensive chest wall subcutaneous emphysema, right greater than left. This extends into the upper abdomen. CONCLUSION: 1. Persistent moderate size right pneumothorax, slightly decreased in size from yesterday's CT. 2 rig ht chest tubes have been placed in the more lateral and inferior chest tube is posterior to the lung and the more anterior chest tube appears to be within the right upper lobe lung parenchyma. The 2. Extensive chest wall subcutaneous emphysema remains present and increased., right greater than lef t. 3. There is bilateral lower lung zone volume loss and airspace consolidation, slightly increased from yesterday's exam. 4. Stable multiple right rib fractures and partially visualized right clavicle fracture. Gray Hopkins MD on September 05, 2017 at 12:12 Board Certified Radiologist. This report was verified electronically.
[2017-09-05 12:55] LABS: BACTERIA, URINE RARE /hpf; BILIRUBIN, URINE NEG (NEG); BLOOD, URINE NEG (NEG); GLUCOSE,URINE NEG (NEG); HYALINE CAST, URINE 4 /lpf (RARE); KETONE, URINE TRACE mg/dL (NEG); NITRITE,URINE NEG (NEG); URINE COLOR YELLOW (YELLW/STRAW); URINE LEUKOCYTE ESTERASE NEG (NEG)
--- NOTE | 2017-09-05 15:08 | PD.RAD ---
Post Procedure Progress Note Pre Procedure Diagnosis: (1) Pneumothorax Post Procedure Diagnosis: (1) Pneumothorax Procedure Date: Sep 05, 2017 Supervising Radiologist: Michael Boles Proceduralist/Assist: Ignacia Rodriguez, RT(R), Shahram Gutierrez, RT(R) Anesthesia: Conscious Sedation Plan of Activity Patient to Unit: ROPU Patient Condition: Good See PACS Report for procedural detail/treatment Michael Boles MD Sep 05, 2017 15:08
--- NOTE | 2017-09-05 15:23 | RADRPT ---
EXAM DATE/TIME: 09/05/2017 14:02 [facility] COMPARISON: CHEST SINGLE AP, September 05, 2017, 2:41. INDICATIONS : Patient with a history of persistent traumatic pneumothorax. New chest tube placement requested. MEDICAL HISTORY : Non-responsive SURGICAL HISTORY : Non-responsive ENCOUNTER: Initial ACUITY: 4 - 6 days PAIN SCORE: FLUORO TIME: 2.7 minutes IMAGE SERIES: 0 DEVICE(S): 1.) 18 Khmer non-locking catheter PROCEDURE : 1. Fluoroscopically guided chest tube placement. 2. Conscious sedation with continuous EKG and oximetry monitoring. The risks, benefits and alternatives to the procedure were explained and verbal and written consent w as obtained. The site was prepped in sterile fashion. Full sterile technique was used, including ca p, mask, sterile gloves and gown and a large sterile sheet. Hand hygiene and 2% chlorhexidine and/or betadine/alcohol prep was utilized per protocol for cutaneous antisepsis. The skin and subcutaneous tissues were infiltrated with local anesthetic solution. With fluoroscopic guidance the chest was punctured in the anterior-inferior ninth intercostal space a nd the prescribed catheter was placed in the lung apex. Wall suction was applied. Post procedure nisha ges demonstrate satisfactory position of the tube. The catheter was sutured in place and a Percu-Sta y was applied. Conscious sedation was performed with the prescribed dosages and duration as above in the presence of an independent trained radiology nurse to assist in the monitoring of the patient. EKG and oximetry remained stable throughout the procedure. The patient tolerated the procedure well and there were n o complications. The patient was sent to post anesthesia recovery in stable condition. CONCLUSION: Uncomplicated chest tube placement as above. Michael Boles MD on September 05, 2017 at 15:18 Board Certified Radiologist. This report was verified electronically.
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
--- NOTE | 2017-09-05 16:17 | RADRPT ---
EXAM DATE/TIME: 09/05/2017 15:32 [place] COMPARISON: CHEST SINGLE AP, September 05, 2017, 2:41. INDICATIONS : Right chest tube placement. MEDICAL HISTORY : none available SURGICAL HISTORY : none available ENCOUNTER: Subsequent ACUITY: 2 days PAIN SCORE: Non-responsive. LOCATION: Right upper chest FINDINGS: Stable ETT, right IJ central line, and NGT. Right apical surgical chest tube has been retracted into the right midlung zone. More inferiorly placed right apical chest tube has been removed. Newly placed right apical chest tube. Small residual right apical pneumothorax. Improved aeration in the lower [place] ng zone in comparison to prior exam. Mild left lung base airspace disease similar to prior exam. Ther e is stable subcutaneous emphysema in the right chest wall. Cardiomediastinal contours are within nor mal limits. Remainder of exam is unchanged. CONCLUSION: 1. New right apical chest tube in good position with small residual pneumothorax. However, there is i mproved aeration in the right lower lung zone in comparison to earlier today. Michael Boles MD on September 05, 2017 at 16:10 Board Certified Radiologist. This report was verified electronically.
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
[2017-09-06] VITALS (17 sets, daily range): BP systolic 92–176; BP diastolic 52–81; PULSE 72–100; RESP 16–24; TEMP 98.6–101.1; O2SAT 89–100
[2017-09-06] MEDS: PROPOFOL 1000 MG/100 ML INJ 100 ML IV PRN ×7 (00:33→23:30)
[2017-09-06] MEDS: ACETAMINOPHEN 1000 MG/100 ML 100 ML IV PRN ×2 (00:36→09:55)
[2017-09-06] MEDS: fentaNYL DRIP 250 ML IV PRN ×4 (03:02→20:37)
[2017-09-06] MEDS: ARTIFICIAL TEARS OPTH SOLN 15 ML BTL EACH EYE SCH ×5 (04:00→20:00)
[2017-09-06 05:00] LABS: AUTOMATED NEUTROPHIL # 4.8 TH/MM3 (1.8-7.7); BASOPHIL % 0.3 % (0.0-2.0); EOSINOPHIL # 0.2 TH/MM3 (0-0.4); EOSINOPHIL % 3.5 % (0.0-4.0); HEMATOCRIT 27.8 % (39.0-51.0); HEMOGLOBIN 9.6 GM/DL (13.0-17.0); LYMPH % 15.9 % (9.0-44.0); LYMPHOCYTE # 1.1 TH/MM3 (1.0-4.8); MEAN CELL VOLUME 87.1 FL (80.0-100.0); MEAN CORPUSCULAR HEMOGLOBIN 30.2 PG (27.0-34.0); MEAN CORPUSCULAR HGB CONC 34.6 % (32.0-36.0); MONO % 12.1 % (0.0-8.0); MONOCYTE # 0.9 TH/MM3 (0-0.9); NEUT % 68.2 % (16.0-70.0); PLATELET COUNT 277 TH/MM3 (150-450); RED BLOOD COUNT 3.19 MIL/MM3 (4.50-5.90); RED CELL DISTRIBUTION WIDTH 13.5 % (11.6-17.2); WHITE BLOOD COUNT 7.1 TH/MM3 (4.0-11.0)
--- NOTE | 2017-09-06 05:08 | RADRPT ---
EXAM DATE/TIME: 09/06/2017 03:50 [place] COMPARISON: CT THORAX W/O CONTRAST, September 05, 2017, 11:48. CHEST EXPIRATION ONLY, September 05, 2017, 15:32. INDICATIONS : Pneumothorax. Follow up trauma. MEDICAL HISTORY : Pnuemothorax. SURGICAL HISTORY : Chest tube. ENCOUNTER: Subsequent ACUITY: 1 week PAIN SCORE: Non-responsive. LOCATION: Bilateral chest FINDINGS: A single AP portable expiratory view the chest was obtained and again demonstrates the endotracheal t ube in place with the tip approximately 3-4 cm above the david. Nasogastric tube and right internal jugular central venous line remain in place. There are 2 right-sided chest tubes in place with no vis ualized pneumothorax. Multiple right rib fractures and right clavicular fracture again noted. There h as been and of interval decrease in the subcutaneous emphysema over the right lateral chest wall. Con solidation remains at the left lung base. There is more patchy infiltrate in the right lung base. Bot h costophrenic angles appear blunted. CONCLUSION: 1. The 2 right-sided chest tubes remain in place with no visualized pneumothorax. 2. Bibasilar opacity remains right greater than left. Wilman Bragg MD on September 06, 2017 at 5:04 Board Certified Radiologist. This report was verified electronically.
[2017-09-06 05:15] LABS: BICARBONATE 24.7 MEQ/L (21.0-32.0); CALCIUM 7.8 MG/DL (8.5-10.1); CREATININE 0.95 MG/DL (0.60-1.30)
[2017-09-06] MEDS: CHLORHEXIDINE 0.12% (ORAL KIT) 15 ML CUP MT SCH ×2 (08:45→20:00)
[2017-09-06] MEDS: SODIUM CHLORIDE 0.9% FLUSH 10 ML FLUSH IV FLUSH SCH ×2 (08:46→20:30)
[2017-09-06] MEDS ORDERED: ROCURONIUM INJ 50 MG/5 ML VIAL ONE (08:51)
[2017-09-06] MEDS: VENLAFAXINE HCL XR 75 MG CAP PO SCH (09:00)
[2017-09-06] MEDS: LACTULOSE SYRUP 20 GM/30 ML CUP PO SCH (09:00)
[2017-09-06] MEDS: PANTOPRAZOLE SODIUM 40 MG VIAL IV PUSH SCH (09:00)
[2017-09-06] MEDS: DOCUSATE SODIUM 50 MG/SENNA 8.6 MG TAB PO SCH ×2 (09:00→20:30)
[2017-09-06] MEDS ORDERED: ROCURONIUM INJ 50 MG/5 ML VIAL IV ONE ×2 (09:15→10:00)
[2017-09-06] MEDS: CISATRACURIUM 100 MG/NS 250 ML IV PRN ×6 (10:09→20:00)
--- NOTE | 2017-09-06 10:25 | PD.ORT.PN ---
Subjective Subjective Remarks Patient still has 2 chest tubes his right lung. Patient is stable otherwise Objective Vitals Vital Signs Date Time Temp Pulse Resp B/P (MAP) Pulse Ox O2 Delivery O2 Flow Rate FiO2 09/06/17 07:53 93 70 09/06/17 06:00 84 09/06/17 04:00 70 09/06/17 04:00 100.9 88 24 105/59 (74) 97 09/06/17 04:00 88 09/06/17 02:00 72 09/06/17 01:06 21 09/06/17 00:18 99 70 09/06/17 00:00 101.1 97 21 104/57 (73) 99 09/06/17 00:00 70 09/06/17 00:00 97 09/05/17 22:00 98 09/05/17 20:18 93 70 09/05/17 20:00 101.7 92 21 108/55 (72) 99 09/05/17 20:00 70 09/05/17 20:00 92 09/05/17 18:00 104 09/05/17 18:00 70 09/05/17 17:07 100 80 09/05/17 16:00 76 09/05/17 16:00 99.2 76 18 158/72 (100) 99 09/05/17 16:00 70 09/05/17 14:00 100 09/05/17 14:00 75 09/05/17 13:50 96 100 09/05/17 12:00 100 09/05/17 12:00 101.6 106 18 124/67 (86) 97 09/05/17 12:00 106 09/05/17 11:30 93 100 09/05/17 11:19 97 100 I/O 09/05/17 09/05/17 09/05/17 09/06/17 09/06/17 09/06/17 07:00 15:00 23:00 07:00 15:00 23:00 Intake Total 200 ml 1400 ml 1834 ml 300 ml Output Total 540 ml 550 ml 510 ml Balance -340 ml 1400 ml 1284 ml -210 ml Intake IV Total 300 ml 619 ml 300 ml Tube Feeding 140 ml 315 ml Packed Cells 800 ml 800 ml Blood Product IV Normal Saline Flush 300 ml Tube Irrigant 60 ml Other 100 ml Output Urine Total 400 ml 500 ml 300 ml Stool Total 0 ml Chest Tube Drainage Total 140 ml 50 ml 210 ml # Bowel Movements 1 Result Diagram: 09/06/17 0420 09/06/17 0420 Imaging Last 24 hours Impressions Chest X-Ray 08/31/17 0000 Signed Impressions: Service Date/Time: Thursday, August 31, 2017 03:25 - CONCLUSION: 1. Multiple right-sided rib fractures with pulmonary parenchymal contusion. Developing bibasilar atelectatic changes. 2. Right-sided thoracostomy tube without pneumothorax. Appropriate positioning of the endotracheal and nasogastric tubes. 3. Right clavicular fracture. Adan Chambers MD Pelvis X-Ray 08/30/17 1521 Signed Impressions: Service Date/Time: Wednesday, August 30, 2017 15:21 - CONCLUSION: 1. Negative examination. Lucius Trevino MD Head CT 08/30/17 152 Signed Impressions: Service Date/Time: Wednesday, August 30, 2017 16:06 - CONCLUSION: 1. No acute intracranial abnormality is identified. Lucius Trevino MD Chest X-Ray 08/30/17 152 Signed Impressions: Service Date/Time: Wednesday, August 30, 2017 15:21 - CONCLUSION: 1. Multiple right rib fractures and right clavicle fracture with questionable right lung contusion and pneumothorax. Austin Jarquin MD Chest CT 08/30/17 152 Signed Impressions: Service Date/Time: Wednesday, August 30, 2017 16:20 - CONCLUSION: 1. Fracture of the right third through ninth ribs. Some of the ribs are fractured in 2 [address]. 2. Small right-sided pneumothorax with parenchymal contusion. There is a right-sided chest tube already in good position. 3. Endotracheal tube in satisfactory position. 4. The aorta and great vessels appear intact. Lucius Trevino MD Cervical Spine CT 08/30/17 1521 Signed Impressions: Service Date/Time: Wednesday, August 30, 2017 16:09 - CONCLUSION: 1. Negative for fracture or subluxation of the cervical spine. No canal stenosis. 2. Endotracheal tube and right chest tube present. Right rib fractures. Austin Jarquin MD Abdomen/Pelvis CT 08/30/17 1521 Signed Impressions: Service Date/Time: Wednesday, August 30, 2017 16:20 - CONCLUSION: Numerous lower right rib fractures with small right pneumothorax and hemothorax and dependent consolidation in both lungs. Right chest tube present. No solid visceral injury identified within the abdomen or pelvis. No free air or free fluid. Austin Jarquin MD Objective Remarks RUE: +exfix of elbow and wrist. pin sites clean. good cap refill of fingers. + bruising and swelling of shoulder LUE: + Long arm splint. intact. +cap refill Assessment & Plan Assessment and Plan 1) Open fracture dislocation right elbow- grade 3 2) Fracture right distal radius, intra-articular, comminuted. 3) Fracture left distal radius with distal radial ulnar joint dislocation ( Galeazzi variant) 4) Right Clavicle Fx POD 4 : ORIF with revision of exfix of right distal radius fx Revision of exfix right elbow ORIF of left distal radius fx with pinning of DRUJ PLAN: NWB BUE pin care to right arm BID maintain splint on left arm at all times once patient stable and is able to be positioned laterally for surgery of the right elbow we will proceed possibly fri/ npo after Wilman Ruvalcaba Jr. Sep 06, 2017 10:25
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
[2017-09-06] MEDS ORDERED: FUROSEMIDE 40 MG/4 ML VIAL ONE (13:19)
[2017-09-06] MEDS ORDERED: FUROSEMIDE 40 MG/4 ML VIAL IV PUSH ONE (13:45)
[2017-09-06] MEDS: ICU - POTASSIUM CHLORIDE/AQUEOUS SOLN 40 MEQ/100 ML IVPB IV PRN (18:13)
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
[2017-09-07] VITALS (16 sets, daily range): BP systolic 105–126; BP diastolic 58–77; PULSE 74–92; RESP 16; TEMP 98.6–99.9; O2SAT 93–100
[2017-09-07] MEDS: CHLORHEXIDINE GLUCONATE 2 % 1 PACK (2 CLOTHS) TOP SCH (00:22)
[2017-09-07] MEDS: CISATRACURIUM 100 MG/NS 250 ML IV PRN ×10 (00:59→23:07)
[2017-09-07] MEDS: ARTIFICIAL TEARS OPTH SOLN 15 ML BTL EACH EYE SCH ×6 (02:58→22:21)
[2017-09-07] MEDS: PROPOFOL 1000 MG/100 ML INJ 100 ML IV PRN ×6 (04:05→23:50)
--- NOTE | 2017-09-07 04:42 | RADRPT ---
EXAM DATE/TIME: 09/07/2017 02:45 [facility] COMPARISON: CHEST SINGLE AP, September 05, 2017, 2:41. INDICATIONS : PTX. MEDICAL HISTORY : Pnuemothorax. SURGICAL HISTORY : Chest tube. ENCOUNTER: Subsequent ACUITY: 1 week PAIN SCORE: Non-responsive. LOCATION: Bilateral chest FINDINGS: AP erect portable view of the chest was obtained and demonstrates interval removal of the large bore right-sided chest tube. The small bore right-sided chest tube remains in place. The right apical pneu mothorax has increased mildly in size and now measures up to 2.3 cm in greatest diameter compared to 1.3 cm on the prior study. Hazy opacity is noted in the right lung and left lung base. The heart size remains within normal limits. The nasogastric tube and right internal jugular central venous in plac e. CONCLUSION: 1. Interval movable of the large bore right-sided chest tube with mild increase in the size of the ri ght apical pneumothorax to 2.3 cm. 2. Hazy opacity is present in the right lung and left lung base. Wilman Bragg MD on September 07, 2017 at 4:37 Board Certified Radiologist. This report was verified electronically.
[2017-09-07] MEDS: fentaNYL DRIP 250 ML IV PRN ×2 (05:40→16:02)
[2017-09-07 05:55] LABS: AUTOMATED NEUTROPHIL # 6.1 TH/MM3 (1.8-7.7); BASOPHIL % 0.3 % (0.0-2.0); EOSINOPHIL # 0.3 TH/MM3 (0-0.4); EOSINOPHIL % 4.2 % (0.0-4.0); HEMATOCRIT 27.6 % (39.0-51.0); HEMOGLOBIN 9.3 GM/DL (13.0-17.0); LYMPH % 11.5 % (9.0-44.0); MEAN CELL VOLUME 88.9 FL (80.0-100.0); MEAN CORPUSCULAR HEMOGLOBIN 29.8 PG (27.0-34.0); MEAN CORPUSCULAR HGB CONC 33.5 % (32.0-36.0); MEAN PLATELET VOLUME 9.1 FL (7.0-11.0); MONO % 10.9 % (0.0-8.0); MONOCYTE # 0.9 TH/MM3 (0-0.9); NEUT % 73.1 % (16.0-70.0); PLATELET COUNT 277 TH/MM3 (150-450); RED BLOOD COUNT 3.11 MIL/MM3 (4.50-5.90); RED CELL DISTRIBUTION WIDTH 13.8 % (11.6-17.2); WHITE BLOOD COUNT 8.3 TH/MM3 (4.0-11.0)
[2017-09-07 06:36] LABS: BICARBONATE 27.8 MEQ/L (21.0-32.0); CALCIUM 7.8 MG/DL (8.5-10.1); CREATININE 0.83 MG/DL (0.60-1.30)
[2017-09-07] MEDS: CHLORHEXIDINE 0.12% (ORAL KIT) 15 ML CUP MT SCH ×2 (07:49→20:00)
[2017-09-07] MEDS: VENLAFAXINE HCL XR 75 MG CAP PO SCH (08:04)
[2017-09-07] MEDS: DOCUSATE SODIUM 50 MG/SENNA 8.6 MG TAB PO SCH ×2 (08:04→21:00)
[2017-09-07] MEDS: PANTOPRAZOLE SODIUM 40 MG VIAL IV PUSH SCH (08:04)
[2017-09-07] MEDS: SODIUM CHLORIDE 0.9% FLUSH 10 ML FLUSH IV FLUSH SCH ×2 (08:04→22:21)
[2017-09-07] MEDS: LACTULOSE SYRUP 20 GM/30 ML CUP PO SCH (08:04)
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
--- NOTE | 2017-09-07 09:41 | PD.ORT.PN ---
Subjective Subjective Remarks Patient still has 2 chest tubes his right lung. Patient is stable otherwise Objective Vitals Vital Signs Date Time Temp Pulse Resp B/P (MAP) Pulse Ox O2 Delivery O2 Flow Rate FiO2 09/07/17 09:05 99 65 09/07/17 06:00 85 09/07/17 04:00 99.9 83 16 105/62 (76) 95 09/07/17 04:00 83 09/07/17 04:00 65 09/07/17 03:38 94 65 09/07/17 02:00 84 09/07/17 00:00 65 09/07/17 00:00 99.8 92 16 119/69 (86) 100 09/07/17 00:00 90 09/06/17 23:56 100 70 09/06/17 22:00 89 09/06/17 21:54 99 75 09/06/17 20:00 90 09/06/17 20:00 99.0 91 16 92/52 (65) 100 09/06/17 20:00 70 09/06/17 18:00 87 09/06/17 16:00 98 09/06/17 16:00 85 09/06/17 16:00 98.6 98 16 118/58 (78) 96 09/06/17 15:05 95 90 09/06/17 14:00 81 09/06/17 12:00 100 09/06/17 12:00 100.6 92 16 97/53 (68) 90 09/06/17 12:00 92 09/06/17 10:00 100 09/06/17 10:00 100 I/O 09/06/17 09/06/17 09/06/17 09/07/17 09/07/17 09/07/17 07:00 15:00 23:00 07:00 15:00 23:00 Intake Total 300 ml 537.9 ml 1488 ml 1398 ml Output Total 510 ml 1540 ml 605 ml Balance -210 ml 537.9 ml -52 ml 793 ml Intake IV Total 300 ml 537.9 ml 1037 ml 950 ml Tube Feeding 301 ml 448 ml Other 150 ml Output Urine Total 300 ml 1450 ml 525 ml Chest Tube Drainage Total 210 ml 90 ml 80 ml # Bowel Movements 1 Result Diagram: 09/07/17 0530 09/07/17 0530 Imaging Last 24 hours Impressions Chest X-Ray 08/31/17 0000 Signed Impressions: Service Date/Time: Thursday, August 31, 2017 03:25 - CONCLUSION: 1. Multiple right-sided rib fractures with pulmonary parenchymal contusion. Developing bibasilar atelectatic changes. 2. Right-sided thoracostomy tube without pneumothorax. Appropriate positioning of the endotracheal and nasogastric tubes. 3. Right clavicular fracture. Adan Chambers MD Pelvis X-Ray 08/30/17 1521 Signed Impressions: Service Date/Time: Wednesday, August 30, 2017 15:21 - CONCLUSION: 1. Negative examination. Lucius Trevino MD Head CT 08/30/17 1521 Signed Impressions: Service Date/Time: Wednesday, August 30, 2017 16:06 - CONCLUSION: 1. No acute intracranial abnormality is identified. Lucius Trevino MD Chest X-Ray 08/30/17 1521 Signed Impressions: Service Date/Time: Wednesday, August 30, 2017 15:21 - CONCLUSION: 1. Multiple right rib fractures and right clavicle fracture with questionable right lung contusion and pneumothorax. Austin Jarquin MD Chest CT 08/30/17 1521 Signed Impressions: Service Date/Time: Wednesday, August 30, 2017 16:20 - CONCLUSION: 1. Fracture of the right third through ninth ribs. Some of the ribs are fractured in 2 places. 2. Small right-sided pneumothorax with parenchymal contusion. There is a right-sided chest tube already in good position. 3. Endotracheal tube in satisfactory position. 4. The aorta and great vessels appear intact. Lucius Trevino MD Cervical Spine CT 08/30/17 1521 Signed Impressions: Service Date/Time: Wednesday, August 30, 2017 16:09 - CONCLUSION: 1. Negative for fracture or subluxation of the cervical spine. No canal stenosis. 2. Endotracheal tube and right chest tube present. Right rib fractures. Austin Jarquin MD Abdomen/Pelvis CT 08/30/17 1521 Signed Impressions: Service Date/Time: Wednesday, August 30, 2017 16:20 - CONCLUSION: Numerous lower right rib fractures with small right pneumothorax and hemothorax and dependent consolidation in both lungs. Right chest tube present. No solid visceral injury identified within the abdomen or pelvis. No free air or free fluid. Austin Jarquin MD Objective Remarks RUE: +exfix of elbow and wrist. pin sites clean. good cap refill of fingers. + bruising and swelling of shoulder LUE: + Long arm splint. intact. +cap refill Assessment & Plan Assessment and Plan 1) Open fracture dislocation right elbow- grade 3 2) Fracture right distal radius, intra-articular, comminuted. 3) Fracture left distal radius with distal radial ulnar joint dislocation ( Galeazzi variant) 4) Right Clavicle Fx POD 5 : ORIF with revision of exfix of right distal radius fx Revision of exfix right elbow ORIF of left distal radius fx with pinning of DRUJ PLAN: NWB BUE pin care to right arm BID maintain splint on left arm at all times once patient stable and is able to be positioned laterally for surgery of the right elbow we will proceed possibly Friday or later this week Wilman Barrios Jr. Sep 07, 2017 09:41
[2017-09-07] MEDS ORDERED: FUROSEMIDE 20 MG/2 ML VIAL IV PUSH ONE (10:45)
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
[2017-09-07] MEDS: MAGNESIUM HYDROXIDE SUSP 30 ML CUP PO SCH (17:00)
[2017-09-08] VITALS (22 sets, daily range): BP systolic 101–147; BP diastolic 58–88; PULSE 70–90; RESP 16–24; TEMP 97.5–99.5; O2SAT 84–100
[2017-09-08] MEDS: CHLORHEXIDINE GLUCONATE 2 % 1 PACK (2 CLOTHS) TOP SCH (03:49)
[2017-09-08] MEDS: ARTIFICIAL TEARS OPTH SOLN 15 ML BTL EACH EYE SCH ×7 (03:49→23:50)
[2017-09-08] MEDS: PROPOFOL 1000 MG/100 ML INJ 100 ML IV PRN ×5 (03:50→20:35)
[2017-09-08] MEDS: ENOXAPARIN SODIUM 30 MG/0.3 ML SYRINGE SQ SCH ×2 (04:03→15:00)
[2017-09-08] MEDS: fentaNYL DRIP 250 ML IV PRN ×2 (04:03→16:05)
[2017-09-08 05:19] LABS: BICARBONATE 27.6 MEQ/L (21.0-32.0); CALCIUM 7.8 MG/DL (8.5-10.1); CREATININE 0.77 MG/DL (0.60-1.30)
[2017-09-08 05:30] LABS: AUTOMATED NEUTROPHIL # 7.5 TH/MM3 (1.8-7.7); BASOPHIL % 0.4 % (0.0-2.0); EOSINOPHIL # 0.4 TH/MM3 (0-0.4); EOSINOPHIL % 3.5 % (0.0-4.0); HEMATOCRIT 28.4 % (39.0-51.0); HEMOGLOBIN 9.6 GM/DL (13.0-17.0); LYMPH % 12.2 % (9.0-44.0); LYMPHOCYTE # 1.2 TH/MM3 (1.0-4.8); MEAN CELL VOLUME 88.2 FL (80.0-100.0); MEAN CORPUSCULAR HEMOGLOBIN 29.9 PG (27.0-34.0); MEAN CORPUSCULAR HGB CONC 33.9 % (32.0-36.0); MEAN PLATELET VOLUME 9.6 FL (7.0-11.0); MONO % 10.4 % (0.0-8.0); MONOCYTE # 1.1 TH/MM3 (0-0.9); NEUT % 73.5 % (16.0-70.0); PLATELET COUNT 351 TH/MM3 (150-450); RED BLOOD COUNT 3.22 MIL/MM3 (4.50-5.90); RED CELL DISTRIBUTION WIDTH 13.9 % (11.6-17.2); WHITE BLOOD COUNT 10.3 TH/MM3 (4.0-11.0)
--- NOTE | 2017-09-08 06:19 | RADRPT ---
EXAM DATE/TIME: 09/08/2017 04:43 [facility] COMPARISON: CHEST SINGLE AP, September 07, 2017, 2:45. INDICATIONS : Short of breath. MEDICAL HISTORY : Pnuemothorax. SURGICAL HISTORY : Chest tube. ENCOUNTER: Subsequent ACUITY: 1 week PAIN SCORE: 0/10 LOCATION: Bilateral chest FINDINGS: A single view of the chest demonstrates right-sided chest seen. Right basilar pneumothorax. Right-chary ed chest tube stable position. Pleural-parenchymal disease in both lower lobes. Endotracheal tube, na sogastric tube and right jugular central line in stable position.. Osseous structures are intact. CONCLUSION: 1. Right basilar pneumothorax appears more prominent on current study. 2. Pleural-parenchymal opacities in both lower lobes. Chago Snyder MD on September 08, 2017 at 6:14 Board Certified Radiologist. This report was verified electronically.
[2017-09-08] MEDS: MAGNESIUM HYDROXIDE SUSP 30 ML CUP PO SCH ×2 (06:57→17:00)
--- NOTE | 2017-09-08 07:04 | PD.ORT.PN ---
Subjective Subjective Remarks POD 6 s/p ORIF bilateral wrists s/p right elbow fx s/p right clavicle fx intubated/sedated no changes Objective Vitals Vital Signs Date Time Temp Pulse Resp B/P (MAP) Pulse Ox O2 Delivery O2 Flow Rate FiO2 09/08/17 06:00 82 09/08/17 04:00 88 09/08/17 04:00 95 09/08/17 04:00 99.5 88 16 120/60 (80) 94 09/08/17 02:00 81 09/08/17 00:34 98 95 09/08/17 00:00 99.3 78 16 101/58 (72) 97 09/08/17 00:00 95 09/08/17 00:00 78 09/07/17 22:00 82 09/07/17 20:00 100 09/07/17 20:00 88 09/07/17 20:00 99.9 88 16 109/77 (88) 97 09/07/17 19:22 93 100 09/07/17 18:00 85 09/07/17 16:28 95 80 09/07/17 16:00 99.9 83 16 109/66 (80) 95 09/07/17 16:00 80 09/07/17 16:00 83 09/07/17 14:00 79 09/07/17 12:00 74 09/07/17 12:00 98.6 74 16 111/65 (80) 99 09/07/17 12:00 90 09/07/17 10:00 92 09/07/17 09:05 99 65 09/07/17 08:00 99.3 78 16 126/58 (80) 95 09/07/17 08:00 78 09/07/17 08:00 65 I/O 09/07/17 09/07/17 09/07/17 09/08/17 09/08/17 09/08/17 07:00 15:00 23:00 07:00 15:00 23:00 Intake Total 1398 ml 450 ml 1202 ml 533 ml Output Total 605 ml 1650 ml 575 ml Balance 793 ml 450 ml -448 ml -42 ml Intake IV Total 950 ml 450 ml 700 ml Tube Feeding 448 ml 402 ml 413 ml Tube Irrigant 120 ml Other 100 ml Output Urine Total 525 ml 1550 ml 475 ml Chest Tube Drainage Total 80 ml 100 ml 100 ml # Bowel Movements 0 0 Result Diagram: 09/08/17 0420 09/08/17 0420 Imaging Last 24 hours Impressions Chest X-Ray 08/31/17 0000 Signed Impressions: Service Date/Time: Thursday, August 31, 2017 03:25 - CONCLUSION: 1. Multiple right-sided rib fractures with pulmonary parenchymal contusion. Developing bibasilar atelectatic changes. 2. Right-sided thoracostomy tube without pneumothorax. Appropriate positioning of the endotracheal and nasogastric tubes. 3. Right clavicular fracture. Adan Chambers MD Pelvis X-Ray 08/30/17 152 Signed Impressions: Service Date/Time: Wednesday, August 30, 2017 15:21 - CONCLUSION: 1. Negative examination. Lucius Trevino MD Head CT 08/30/171520 Signed Impressions: Service Date/Time: Wednesday, August 30, 2017 16:06 - CONCLUSION: 1. No acute intracranial abnormality is identified. Lucius Trevino MD Chest X-Ray 08/30/17 152 Signed Impressions: Service Date/Time: Wednesday, August 30, 2017 15:21 - CONCLUSION: 1. Multiple right rib fractures and right clavicle fracture with questionable right lung contusion and pneumothorax. Austin Jarquin MD Chest CT 08/30/17 152 Signed Impressions: Service Date/Time: Wednesday, August 30, 2017 16:20 - CONCLUSION: 1. Fracture of the right third through ninth ribs. Some of the ribs are fractured in [address]. 2. Small right-sided pneumothorax with parenchymal contusion. There is a right-sided chest tube already in good position. 3. Endotracheal tube in satisfactory position. 4. The aorta and great vessels appear intact. Lucius Trevino MD Cervical Spine CT 08/30/17 152 Signed Impressions: Service Date/Time: Wednesday, August 30, 2017 16:09 - CONCLUSION: 1. Negative for fracture or subluxation of the cervical spine. No canal stenosis. 2. Endotracheal tube and right chest tube present. Right rib fractures. Austin Jarquin MD Abdomen/Pelvis CT 08/30/17 1521 Signed Impressions: Service Date/Time: Wednesday, August 30, 2017 16:20 - CONCLUSION: Numerous lower right rib fractures with small right pneumothorax and hemothorax and dependent consolidation in both lungs. Right chest tube present. No solid visceral injury identified within the abdomen or pelvis. No free air or free fluid. Austin Jarquin MD Objective Remarks RUE: +exfix of elbow and wrist. pin sites clean. good cap refill of fingers. + bruising and swelling of shoulder LUE: + Long arm splint. intact. +cap refill Assessment & Plan Assessment and Plan 1) Open fracture dislocation right elbow- grade 6 2) Fracture right distal radius, intra-articular, comminuted. 3) Fracture left distal radius with distal radial ulnar joint dislocation ( Galeazzi variant) 4) Right Clavicle Fx POD 6 : ORIF with revision of exfix of right distal radius fx Revision of exfix right elbow ORIF of left distal radius fx with pinning of DRUJ PLAN: NWB BUE pin care to right arm BID maintain splint on left arm at all times once patient stable and is able to be positioned laterally for surgery of the right elbow we will proceed patient lung status is declining will await trauma go ahead for clearance to proceed with ORIF of right elbow Marc Rivero/Ointment [employer] ELKE Sep 08, 2017 07:04
[2017-09-08 07:22] LABS: BANDS 11 % (0-6); LYMPHOCYTES 7 % (9-44); METAMYELOCYTES 3 % (0-1); MONOCYTES 8 % (0-8); MYELOCYTES 1 % (0-0); NEUTROPHIL # MANUAL DIFF 8.4 TH/MM3 (1.8-7.7); POLYS (SEG NEUTROPHILS) 67 % (16-70); TOXIC GRANULATION 2+ (NORMAL)
[2017-09-08] MEDS: SODIUM CHLORIDE 0.9% FLUSH 10 ML FLUSH IV FLUSH SCH ×2 (08:02→20:35)
[2017-09-08] MEDS: CHLORHEXIDINE 0.12% (ORAL KIT) 15 ML CUP MT SCH ×2 (08:02→20:38)
[2017-09-08] MEDS: VENLAFAXINE HCL XR 75 MG CAP PO SCH (08:02)
[2017-09-08] MEDS: PANTOPRAZOLE SODIUM 40 MG VIAL IV PUSH SCH (08:02)
[2017-09-08] MEDS: DOCUSATE SODIUM 50 MG/SENNA 8.6 MG TAB PO SCH ×2 (08:03→20:35)
[2017-09-08] MEDS: LACTULOSE SYRUP 20 GM/30 ML CUP PO SCH (08:03)
[2017-09-08] MEDS: CISATRACURIUM 100 MG/NS 250 ML IV PRN ×8 (08:04→20:35)
--- NOTE | 2017-09-08 11:46 | HHI.PR ---
Neuropsych Emotional Emotional: UnabletoAssess: Emotional, Anxious/Fearful, Depressed/Sad, Hostile/ Resentful, Irritable/Angry/Frustrate, Labile, Constricted/Blunted Behavior Behavior: Intact: Impulsive/Agitated Cognitive Cognitive: Unable to Asses: Cognitive, Attention/Concentration, Confused/ Orientation, Insight/Awareness, Judgement/Problem-Solving, Memory Psychosocial Psychosocial: Unable to Asses: Psychosocial, Family/Other Adjustment, Realistic Expectation, Self-Esteem/Confidence Progress Notes/Response to Tx Contents of Sessions: Adjustment, Level of Consciousness Time with Patient: 15 minutes Premorbid psychological status Premorbid Cognitive, Emotional and Behavioral Status: Stable The patient has high school years of education and a solid work history prior to this injury. The patient has unknown psychiatric difficulties, as described above. Substance abuse history is unknown. Behavioral Reactions of Patient and Family/Support System: Unable to Assess. The patients family is experiencing ongoing issues of adjustment given the nature of the injury, and this aspect of recovery will require ongoing monitoring. Emotional/Behavioral Status of Patient and Family/Support System: Unable to Assess. Pertinent issues, if appropriate to this patients clinical care, are described in detail above. Maximizing acute care outcome It is recommended that the patient be monitored for emergent behavioral impulsivity as the medical condition evolves. This patients neuropathological challenges may limit his rehabilitation potential going forward, and these challenges will require specialized therapeutic skills to maximize outcome. Additionally, the patients family is experiencing ongoing issues of adjustment given the traumatic nature of the injury, and they may benefit from ongoing psychological assistance. At this point in the recovery process, the patient does not have cognitive capacity as the patient is unable to understand a situation and its likely consequences, nor is he able to manipulate information rationally. Cognitive capacity will be assessed throughout the recovery process. Anticipated Problems Ongoing areas of concern will include behavioral impulsivity, lack of insight and judgment, which is expected to improve with time and treatment. Presently , the patient is intubated and sedated. Given the severity of the patient's injuries it is my clinical opinion that this patient will be unable to return to any type of productive employment for at least one year, perhaps longer and likely never. This patient is not considered safe to discharge home without supervision. Treatment Plan This clinician will continue to follow with you throughout the course of this patients critical care treatment, and I will be available to meet with the patients family/support system to facilitate their understanding and the ongoing care of their family member. The goals of neuropsychological intervention shall be both educational and supportive to the family/support system as is deemed clinically appropriate. [facility] Level: I:No response-total assistance Impression This is a 48 year old male [place] [facility] [place] now intubated and sedated. Questionable TBI. Diagnosis: (1) Neurocognitive disorder Progress Note Narrative PTD 9. The patient is slowly improving. Trauma team and intensivists are concerned about development of neuroleptic malignant syndrome. He remain around [place] I will follow. Luis Vergara PhD Sep 08, 2017 11:46
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
--- NOTE | 2017-09-08 17:50 | RADRPT ---
EXAM DATE/TIME: 09/08/2017 16:41 INDICATIONS : Right anterior hydropneumothorax. DEVICE(S): 1.) 10 Fr Elijah MEDICAL HISTORY : None. SURGICAL HISTORY : chest tube ENCOUNTER: Initial ACUITY: 1 day PAIN SCORE: Non-responsive LOCATION: Bilateral chest PROCEDURE: 2.) EKG and oximetry remained stable throughout the procedure. PROCEDURE : 1. CT guided chest tube placement. 2. Conscious sedation with continuous EKG and oximetry monitoring. The risks, benefits and alternatives to the procedure were explained and verbal and written consent w as obtained. The site was prepped in sterile fashion. Full sterile technique was used, including ca p, mask, sterile gloves and gown and a large sterile sheet. Hand hygiene and 2% chlorhexidine and/or betadine/alcohol prep was utilized per protocol for cutaneous antisepsis. The skin and subcutaneous tissues were infiltrated with local anesthetic solution. Using automated exposure control and adjus tment of the mA and/or kV according to patient size, radiation dose was kept as low as reasonably ach ievable to obtain optimal diagnostic quality images. DICOM format image data is available electronic ally for review and comparison. With CT guidance the chest was punctured and the prescribed catheter was placed in the anterior right lower pleural space. Wall suction was applied. Post procedure images demonstrate satisfactory posit ion of the tube. The catheter was sutured in place and a Percu-Stay was applied. Placement of this second tube resulted in near complete reexpansion of the lung. Conscious sedation was performed with the prescribed dosages and duration as above. The patient jamison ated the procedure well and there were no complications. EKG and oximetry remained stable throughout the procedure. The patient was sent to post anesthesia recovery in stable condition. CONCLUSION: Uncomplicated chest tube placement as above. Gray Jimenez MD on September 08, 2017 at 17:45 Board Certified Radiologist. This report was verified electronically.
--- NOTE | 2017-09-08 20:36 | MP ---
cc: Marsha Vasquez MD DATE OF OPERATION: 09/08/2017 PREOPERATIVE DIAGNOSIS: Injury to the right lung, collapse of the right lung with heavy secretions and atelectasis. POSTOPERATIVE DIAGNOSIS: Injury to the right lung, collapse of the right lung with heavy secretions and atelectasis. OPERATIVE PROCEDURE: Bronchoscopy and bronchial lavage, evacuation of secretions. SURGEON: Marsha Vasquez MD ANESTHESIA: General. DESCRIPTION OF PROCEDURE: The patient is prepared. Then, bronchoscope is inserted through a size 8 endotracheal tube into the trachea. It is readily noted the patient has massive amount of grayish white material in the right main stem bronchus. This was addressed first. It is suctioned. All of this is very thick and it is hard to get it out. Bronchoscope had to be retrieved twice with this thing in it and finally, bronchial tree on the right is irrigated with copious amounts of saline and washed out. There are some clots in the distal end of the right upper lobe, third generation aberrations. The left mainstem bronchus is now entered and there is not much material in it. There is some mucus and this is suctioned off. Once completed, the bronchoscope withdrawn and patient placed back on the respirator with much better oxygenation and ventilation. MD HALLIE Mc/JOSE , 08:07 PM , 08:35 PM
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
[2017-09-09] VITALS (17 sets, daily range): BP systolic 101–139; BP diastolic 59–81; PULSE 80–119; RESP 20; TEMP 98.1–100.4; O2SAT 94–100
[2017-09-09] MEDS: CISATRACURIUM 100 MG/NS 250 ML IV PRN ×4 (01:27→07:27)
[2017-09-09] MEDS: PROPOFOL 1000 MG/100 ML INJ 100 ML IV PRN ×6 (01:28→20:38)
[2017-09-09] MEDS: fentaNYL DRIP 250 ML IV PRN ×3 (01:28→20:39)
[2017-09-09] MEDS: CHLORHEXIDINE GLUCONATE 2 % 1 PACK (2 CLOTHS) TOP SCH (03:23)
[2017-09-09] MEDS: ARTIFICIAL TEARS OPTH SOLN 15 ML BTL EACH EYE SCH ×5 (04:00→20:39)
[2017-09-09] MEDS: MAGNESIUM HYDROXIDE SUSP 30 ML CUP PO SCH ×2 (04:56→17:00)
[2017-09-09] MEDS: ENOXAPARIN SODIUM 30 MG/0.3 ML SYRINGE SQ SCH ×2 (04:56→17:25)
[2017-09-09 05:16] LABS: AUTOMATED NEUTROPHIL # 7.6 TH/MM3 (1.8-7.7); BASOPHIL % 0.3 % (0.0-2.0); EOSINOPHIL # 0.4 TH/MM3 (0-0.4); EOSINOPHIL % 3.5 % (0.0-4.0); HEMATOCRIT 29.5 % (39.0-51.0); HEMOGLOBIN 9.8 GM/DL (13.0-17.0); LYMPH % 13.1 % (9.0-44.0); LYMPHOCYTE # 1.3 TH/MM3 (1.0-4.8); MEAN CORPUSCULAR HEMOGLOBIN 28.9 PG (27.0-34.0); MEAN CORPUSCULAR HGB CONC 33.2 % (32.0-36.0); MEAN PLATELET VOLUME 9.4 FL (7.0-11.0); MONO % 7.5 % (0.0-8.0); MONOCYTE # 0.8 TH/MM3 (0-0.9); NEUT % 75.6 % (16.0-70.0); PLATELET COUNT 459 TH/MM3 (150-450); RED BLOOD COUNT 3.39 MIL/MM3 (4.50-5.90); RED CELL DISTRIBUTION WIDTH 13.5 % (11.6-17.2)
[2017-09-09 05:38] LABS: BICARBONATE 27.1 MEQ/L (21.0-32.0); CALCIUM 7.8 MG/DL (8.5-10.1); CREATININE 0.77 MG/DL (0.60-1.30)
--- NOTE | 2017-09-09 05:51 | RADRPT ---
EXAM DATE/TIME: 09/09/2017 04:50 [facility] COMPARISON: CHEST SINGLE AP, September 08, 2017, 4:43. INDICATIONS : Evaluate pneumothorax, short of breath. MEDICAL HISTORY : Pneumothorax. SURGICAL HISTORY : Chest tube. ENCOUNTER: Subsequent ACUITY: 1 week PAIN SCORE: Non-responsive. LOCATION: Bilateral chest FINDINGS: A single frontal expiratory view of the chest was performed. The right-sided chest tube stable. Seco nd small caliber chest tube in the right lower hemithorax is now seen. Decreasing right basilar pneum othorax. Bibasilar densities remain. Endotracheal tube, nasogastric tube and right jugular central li ne in stable position. CONCLUSION: Persistent but decreasing pneumothorax in the right lung base. Chago Snyder MD on September 09, 2017 at 5:46 Board Certified Radiologist. This report was verified electronically.
[2017-09-09] MEDS: CHLORHEXIDINE 0.12% (ORAL KIT) 15 ML CUP MT SCH ×2 (08:00→20:39)
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
[2017-09-09] MEDS: SODIUM CHLORIDE 0.9% FLUSH 10 ML FLUSH IV FLUSH SCH ×2 (09:00→20:39)
[2017-09-09] MEDS: DOCUSATE SODIUM 50 MG/SENNA 8.6 MG TAB PO SCH ×2 (09:00→20:33)
[2017-09-09] MEDS: LACTULOSE SYRUP 20 GM/30 ML CUP PO SCH (09:00)
[2017-09-09] MEDS: PANTOPRAZOLE SODIUM 40 MG VIAL IV PUSH SCH (11:08)
[2017-09-09] MEDS: EPOPROSTENOL NEB SOLUTION 20 NG/KG/MIN 100 ML NEB SCH ×4 (11:17→18:46)
--- NOTE | 2017-09-09 12:41 | PD.ORT.PN ---
Subjective Subjective Remarks POD 7 s/p ORIF bilateral wrists s/p right elbow fx s/p right clavicle fx intubated/sedated no changes Objective Vitals Vital Signs Date Time Temp Pulse Resp B/P (MAP) Pulse Ox O2 Delivery O2 Flow Rate FiO2 09/09/17 08:15 98 70 09/09/17 06:00 87 09/09/17 04:42 96 75 09/09/17 04:00 98 09/09/17 04:00 99.1 87 20 119/63 (81) 95 09/09/17 04:00 75 09/09/17 02:00 80 09/09/17 01:15 80 09/09/17 01:10 100 80 09/09/17 00:20 85 09/09/17 00:00 90 09/09/17 00:00 98.1 90 20 139/81 (100) 100 09/08/17 23:10 90 09/08/17 22:00 90 09/08/17 20:09 99 95 09/08/17 20:00 97.5 79 20 121/76 (91) 100 09/08/17 20:00 79 09/08/17 20:00 95 09/08/17 18:20 92 95 09/08/17 18:00 89 09/08/17 18:00 95 09/08/17 16:20 98 100 09/08/17 16:00 97.7 81 20 145/88 (107) 100 09/08/17 16:00 81 09/08/17 16:00 95 09/08/17 14:00 70 09/08/17 13:46 97 95 09/08/17 13:00 90 100 09/08/17 12:55 90 100 I/O 09/08/17 09/08/17 09/08/17 09/09/17 09/09/17 09/09/17 07:00 15:00 23:00 07:00 15:00 23:00 Intake Total 533 ml 370 ml 1440 ml 444 ml Output Total 575 ml 0 ml 1095.0 ml 870 ml Balance -42 ml 370 ml 345.0 ml -426 ml Intake IV Total 370 ml 1190 ml Tube Feeding 413 ml 130 ml 384 ml Tube Irrigant 120 ml Other 120 ml 60 ml Output Urine Total 475 ml 875 ml 800 ml Tube Feeding Residual Discard 0 ml 0 ml 0 ml Chest Tube Drainage Total 100 ml 220 ml 70 ml # Bowel Movements 0 1 0 Result Diagram: 09/09/17 0500 09/09/17 0500 Imaging Last 24 hours Impressions Chest X-Ray 08/31/17 0000 Signed Impressions: Service Date/Time: Thursday, August 31, 2017 03:25 - CONCLUSION: 1. Multiple right-sided rib fractures with pulmonary parenchymal contusion. Developing bibasilar atelectatic changes. 2. Right-sided thoracostomy tube without pneumothorax. Appropriate positioning of the endotracheal and nasogastric tubes. 3. Right clavicular fracture. Adan Chambers MD Pelvis X-Ray 08/30/17 1521 Signed Impressions: Service Date/Time: Wednesday, August 30, 2017 15:21 - CONCLUSION: 1. Negative examination. Lucius Trevino MD Head CT 08/30/17 1521 Signed Impressions: Service Date/Time: Wednesday, August 30, 2017 16:06 - CONCLUSION: 1. No acute intracranial abnormality is identified. Lucius Trevino MD Chest X-Ray 08/30/17 1521 Signed Impressions: Service Date/Time: Wednesday, August 30, 2017 15:21 - CONCLUSION: 1. Multiple right rib fractures and right clavicle fracture with questionable right lung contusion and pneumothorax. Austin Jarquin MD Chest CT 08/30/17 1521 Signed Impressions: Service Date/Time: Wednesday, August 30, 2017 16:20 - CONCLUSION: 1. Fracture of the right third through ninth ribs. Some of the ribs are fractured in 2 places. 2. Small right-sided pneumothorax with parenchymal contusion. There is a right-sided chest tube already in good position. 3. Endotracheal tube in satisfactory position. 4. The aorta and great vessels appear intact. Lucius Trevino MD Cervical Spine CT 08/30/17 1521 Signed Impressions: Service Date/Time: Wednesday, August 30, 2017 16:09 - CONCLUSION: 1. Negative for fracture or subluxation of the cervical spine. No canal stenosis. 2. Endotracheal tube and right chest tube present. Right rib fractures. Austin Jarquin MD Abdomen/Pelvis CT 08/30/17 1521 Signed Impressions: Service Date/Time: Wednesday, August 30, 2017 16:20 - CONCLUSION: Numerous lower right rib fractures with small right pneumothorax and hemothorax and dependent consolidation in both lungs. Right chest tube present. No solid visceral injury identified within the abdomen or pelvis. No free air or free fluid. Austin Jarquin MD Objective Remarks RUE: +exfix of elbow and wrist. pin sites clean. good cap refill of fingers. + bruising and swelling of shoulder LUE: + Long arm splint. intact. +cap refill Assessment & Plan Assessment and Plan 1) Open fracture dislocation right elbow 2) Fracture right distal radius, intra-articular, comminuted. 3) Fracture left distal radius with distal radial ulnar joint dislocation ( Galeazzi variant) 4) Right Clavicle Fx POD 7 : ORIF with revision of exfix of right distal radius fx Revision of exfix right elbow ORIF of left distal radius fx with pinning of DRUJ PLAN: NWB BUE pin care to right arm BID maintain splint on left arm at all times once patient stable and is able to be positioned laterally for surgery of the right elbow we will proceed patient lung status is declining will await trauma go ahead for clearance to proceed with ORIF of right elbow Marc Rivero/Senior Graduate Advisor PA Sep 09, 2017 12:41
--- NOTE | 2017-09-09 13:47 | PD.WCN.NOT ---
Wound Consult Additional Information: Received consult from Gin Reid for evaluation of bed. Patient is to unstable to turn. Spoke with LAYO Shah regarding patient. Per Alyssa patient is not be moved, cant' go on WAVE bed.Please vocera wound care nurse when patient is stable enough for movement. Spoke with Gin, if patient can be moved at any point would suggest a cooling mat overlay to reduce risk of moisture related breakdown. Natalia Stahl [facility] Sep 09, 2017 13:47
[2017-09-09] MEDS ORDERED: MIDAZOLAM HCL 2 MG/2 ML VIAL IV PUSH ONE (14:30)
[2017-09-09] MEDS: MIDAZOLAM 100 MG/100 ML INJ 100 ML IV PRN (14:45)
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
[2017-09-10] VITALS (18 sets, daily range): BP systolic 97–134; BP diastolic 2–72; PULSE 86–112; RESP 18–21; TEMP 99.3–100.6; O2SAT 94–100
[2017-09-10] MEDS: ARTIFICIAL TEARS OPTH SOLN 15 ML BTL EACH EYE SCH ×7 (00:22→23:34)
[2017-09-10] MEDS: CHLORHEXIDINE GLUCONATE 2 % 1 PACK (2 CLOTHS) TOP SCH (00:23)
[2017-09-10] MEDS: PROPOFOL 1000 MG/100 ML INJ 100 ML IV PRN ×7 (01:08→23:34)
[2017-09-10] MEDS: ACETAMINOPHEN 1000 MG/100 ML 100 ML IV PRN ×2 (01:17→09:35)
[2017-09-10] MEDS: EPOPROSTENOL NEB SOLUTION 20 NG/KG/MIN 100 ML NEB SCH ×6 (03:00→20:24)
[2017-09-10] MEDS: MAGNESIUM HYDROXIDE SUSP 30 ML CUP PO SCH ×2 (03:24→17:00)
[2017-09-10] MEDS: ENOXAPARIN SODIUM 30 MG/0.3 ML SYRINGE SQ SCH ×2 (03:24→16:00)
[2017-09-10] MEDS: fentaNYL DRIP 250 ML IV PRN ×2 (07:15→18:00)
--- NOTE | 2017-09-10 07:31 | PD.ORT.PN ---
Subjective Subjective Remarks POD 8 s/p ORIF bilateral wrists s/p right elbow fx s/p right clavicle fx intubated/sedated no changes Objective Vitals Vital Signs Date Time Temp Pulse Resp B/P (MAP) Pulse Ox O2 Delivery O2 Flow Rate FiO2 09/10/17 06:00 102 09/10/17 04:02 99 60 09/10/17 04:00 99.7 86 20 97/60 (72) 100 09/10/17 04:00 60 09/10/17 04:00 86 09/10/17 02:00 96 09/10/17 00:11 98 60 09/10/17 00:00 96 09/10/17 00:00 100.4 96 20 104/65 (78) 98 09/10/17 00:00 65 09/09/17 22:00 96 09/09/17 20:46 100 60 09/09/17 20:00 100.4 94 20 122/79 (93) 100 09/09/17 20:00 65 09/09/17 20:00 94 09/09/17 18:00 92 09/09/17 18:00 60 09/09/17 16:27 98 65 09/09/17 16:00 99.5 92 20 121/62 (81) 100 09/09/17 16:00 65 09/09/17 16:00 92 09/09/17 14:00 94 09/09/17 13:00 70 09/09/17 12:00 99.3 89 20 101/59 (73) 94 09/09/17 12:00 89 09/09/17 10:00 119 09/09/17 09:00 60 09/09/17 08:15 98 70 09/09/17 08:00 99.3 84 20 122/77 (92) 98 09/09/17 08:00 75 09/09/17 08:00 84 I/O 09/09/17 09/09/17 09/09/17 09/10/17 09/10/17 09/10/17 07:00 15:00 23:00 07:00 15:00 23:00 Intake Total 444 ml 878 ml 939 ml 1101 ml Output Total 870 ml 0 ml 980 ml 860 ml Balance -426 ml 878 ml -41 ml 241 ml Intake IV Total 878 ml 450 ml 609 ml Tube Feeding 384 ml 489 ml 492 ml Other 60 ml Output Urine Total 800 ml 850 ml 850 ml Tube Feeding Residual Discard 0 ml 0 ml 0 ml Chest Tube Drainage Total 70 ml 130 ml 10 ml # Bowel Movements 0 1 0 Result Diagram: 09/09/17 0500 09/09/17 0500 Imaging Last 24 hours Impressions Chest X-Ray 08/31/17 0000 Signed Impressions: Service Date/Time: Thursday, August 31, 2017 03:25 - CONCLUSION: 1. Multiple right-sided rib fractures with pulmonary parenchymal contusion. Developing bibasilar atelectatic changes. 2. Right-sided thoracostomy tube without pneumothorax. Appropriate positioning of the endotracheal and nasogastric tubes. 3. Right clavicular fracture. Adan Chambers MD Pelvis X-Ray 08/30/17 1521 Signed Impressions: Service Date/Time: Wednesday, August 30, 2017 15:21 - CONCLUSION: 1. Negative examination. Lucius Trevino MD Head CT 08/30/17 1521 Signed Impressions: Service Date/Time: Wednesday, August 30, 2017 16:06 - CONCLUSION: 1. No acute intracranial abnormality is identified. Lucius Trevino MD Chest X-Ray 08/30/17 1521 Signed Impressions: Service Date/Time: Wednesday, August 30, 2017 15:21 - CONCLUSION: 1. Multiple right rib fractures and right clavicle fracture with questionable right lung contusion and pneumothorax. Austin Jarquin MD Chest CT 08/30/17 1521 Signed Impressions: Service Date/Time: Wednesday, August 30, 2017 16:20 - CONCLUSION: 1. Fracture of the right third through ninth ribs. Some of the ribs are fractured in 2 [address]. 2. Small right-sided pneumothorax with parenchymal contusion. There is a right-sided chest tube already in good position. 3. Endotracheal tube in satisfactory position. 4. The aorta and great vessels appear intact. Lucius Trevino MD Cervical Spine CT 08/30/17 1521 Signed Impressions: Service Date/Time: Wednesday, August 30, 2017 16:09 - CONCLUSION: 1. Negative for fracture or subluxation of the cervical spine. No canal stenosis. 2. Endotracheal tube and right chest tube present. Right rib fractures. Austin Jarquin MD Abdomen/Pelvis CT 08/30/17 1521 Signed Impressions: Service Date/Time: Wednesday, August 30, 2017 16:20 - CONCLUSION: Numerous lower right rib fractures with small right pneumothorax and hemothorax and dependent consolidation in both lungs. Right chest tube present. No solid visceral injury identified within the abdomen or pelvis. No free air or free fluid. Austin Jarquin MD Objective Remarks RUE: +exfix of elbow and wrist. pin sites clean. good cap refill of fingers. + bruising and swelling of shoulder LUE: + Long arm splint. intact. +cap refill Assessment & Plan Assessment and Plan 1) Open fracture dislocation right elbow 2) Fracture right distal radius, intra-articular, comminuted. 3) Fracture left distal radius with distal radial ulnar joint dislocation ( Galeazzi variant) 4) Right Clavicle Fx POD 8 : ORIF with revision of exfix of right distal radius fx Revision of exfix right elbow ORIF of left distal radius fx with pinning of DRUJ PLAN: NWB BUE pin care to right arm BID maintain splint on left arm at all times once patient stable and is able to be positioned laterally for surgery of the right elbow we will proceed patient lung status is declining will await trauma go ahead for clearance to proceed with ORIF of right elbow patient still not stable enough for OR will likely be next week before ready for elbow surgery Marc Rivero/First Efrain BEDOYA Sep 10, 2017 07:31
[2017-09-10] MEDS: DOCUSATE SODIUM 50 MG/SENNA 8.6 MG TAB PO SCH ×2 (07:50→19:55)
[2017-09-10] MEDS: SODIUM CHLORIDE 0.9% FLUSH 10 ML FLUSH IV FLUSH SCH ×2 (07:50→19:56)
[2017-09-10] MEDS: LACTULOSE SYRUP 20 GM/30 ML CUP PO SCH (07:50)
[2017-09-10] MEDS: CHLORHEXIDINE 0.12% (ORAL KIT) 15 ML CUP MT SCH ×2 (07:50→19:56)
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
[2017-09-10 07:59] LABS: HEMATOCRIT 27.8 % (39.0-51.0); HEMOGLOBIN 9.2 GM/DL (13.0-17.0); MEAN CELL VOLUME 88.3 FL (80.0-100.0); MEAN CORPUSCULAR HGB CONC 32.9 % (32.0-36.0); MEAN PLATELET VOLUME 9.8 FL (7.0-11.0); PLATELET COUNT 485 TH/MM3 (150-450); RED BLOOD COUNT 3.16 MIL/MM3 (4.50-5.90); RED CELL DISTRIBUTION WIDTH 13.6 % (11.6-17.2); WHITE BLOOD COUNT 12.9 TH/MM3 (4.0-11.0)
[2017-09-10 08:21] LABS: BICARBONATE 26.6 MEQ/L (21.0-32.0); CALCIUM 7.6 MG/DL (8.5-10.1); CREATININE 0.88 MG/DL (0.60-1.30); MAGNESIUM 2.5 MG/DL (1.5-2.5)
[2017-09-10 08:22] LABS: PHOSPHORUS 3.3 MG/DL (2.5-4.9)
[2017-09-10] MEDS: PANTOPRAZOLE SODIUM 40 MG VIAL IV PUSH SCH (08:25)
[2017-09-10] MEDS ORDERED: RESP: ALBUTEROL 2.5 MG/3 ML NEB (PRN) NEB (09:00)
[2017-09-10] MEDS: RESP: ALBUTEROL 2.5 MG/IPRATROPIUM 0.5 MG NEB (SCH) NEB ×3 (09:09→21:48)
--- NOTE | 2017-09-10 09:25 | RADRPT ---
EXAM DATE/TIME: 09/10/2017 08:32 [facility] COMPARISON: CHEST SINGLE AP, September 08, 2017, 4:43. INDICATIONS : Chest trauma; hemopneumothorax. MEDICAL HISTORY : None. SURGICAL HISTORY : None. ENCOUNTER: Subsequent ACUITY: 2 weeks PAIN SCORE: Non-responsive. LOCATION: Bilateral chest FINDINGS: A single portable frontal view the chest shows an endotracheal tube with the tip 4 cm from the david . Right thoracostomy tube. No pneumothorax. Nasogastric tube courses off the inferior margin of the f ilm. Consolidations involving both lung bases. This is unchanged. Tiny right effusion. Right sided ri b fractures. CONCLUSION: Unchanged bibasilar consolidation and tiny bilateral pleural effusions. No pneumothorax. Min Gibbons Jr., MD on September 10, 2017 at 8:57 Board Certified Radiologist. This report was verified electronically.
[2017-09-10] MEDS ORDERED: FUROSEMIDE 20 MG/2 ML VIAL IV PUSH ONE (10:30)
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
[2017-09-11] VITALS (17 sets, daily range): BP systolic 92–143; BP diastolic 53–73; PULSE 87–126; RESP 16–20; TEMP 97.5–100.4; O2SAT 93–99
[2017-09-11] MEDS: CHLORHEXIDINE GLUCONATE 2 % 1 PACK (2 CLOTHS) TOP SCH (02:55)
[2017-09-11] MEDS: PROPOFOL 1000 MG/100 ML INJ 100 ML IV PRN ×4 (03:09→17:59)
[2017-09-11] MEDS: ENOXAPARIN SODIUM 30 MG/0.3 ML SYRINGE SQ SCH ×2 (03:09→14:32)
[2017-09-11] MEDS: fentaNYL DRIP 250 ML IV PRN ×2 (03:09→15:18)
[2017-09-11] MEDS: ARTIFICIAL TEARS OPTH SOLN 15 ML BTL EACH EYE SCH ×6 (03:10→23:42)
[2017-09-11] MEDS: RESP: ALBUTEROL 2.5 MG/IPRATROPIUM 0.5 MG NEB (SCH) NEB ×4 (03:36→21:10)
[2017-09-11 05:21] LABS: AUTOMATED NEUTROPHIL # 10.8 TH/MM3 (1.8-7.7); BASOPHIL % 0.3 % (0.0-2.0); EOSINOPHIL # 0.5 TH/MM3 (0-0.4); EOSINOPHIL % 3.3 % (0.0-4.0); HEMATOCRIT 27.2 % (39.0-51.0); HEMOGLOBIN 8.9 GM/DL (13.0-17.0); LYMPHOCYTE # 1.4 TH/MM3 (1.0-4.8); MEAN CELL VOLUME 87.6 FL (80.0-100.0); MEAN CORPUSCULAR HEMOGLOBIN 28.8 PG (27.0-34.0); MEAN CORPUSCULAR HGB CONC 32.9 % (32.0-36.0); MONO % 8.7 % (0.0-8.0); MONOCYTE # 1.2 TH/MM3 (0-0.9); NEUT % 77.7 % (16.0-70.0); PLATELET COUNT 582 TH/MM3 (150-450); RED CELL DISTRIBUTION WIDTH 13.6 % (11.6-17.2); WHITE BLOOD COUNT 13.9 TH/MM3 (4.0-11.0)
[2017-09-11 05:42] LABS: ALBUMIN 1.4 GM/DL (3.4-5.0); ALT (GPT) 169 U/L (12-78); AST (GOT) 88 U/L (15-37); BICARBONATE 27.6 MEQ/L (21.0-32.0); BLOOD UREA NITROGEN 17 MG/DL (7-18); CALCIUM 7.5 MG/DL (8.5-10.1); CHLORIDE 106 MEQ/L (98-107); GLOMERULAR FILTRATION RATE 73 ML/MIN (>89); GLUCOSE,RANDOM 133 MG/DL (74-106); SODIUM (NA) 140 MEQ/L (136-145)
[2017-09-11 05:45] LABS: ALKALINE PHOSPHATASE 243 U/L (45-117); TOTAL BILIRUBIN ADULT 0.5 MG/DL (0.2-1.0); TOTAL PROTEIN 5.5 GM/DL (6.4-8.2)
--- NOTE | 2017-09-11 06:19 | RADRPT ---
EXAM DATE/TIME: 09/11/2017 05:26 [facility] COMPARISON: CHEST SINGLE AP, September 10, 2017, 8:32. INDICATIONS : Respiratory distress. MEDICAL HISTORY : None. SURGICAL HISTORY : None. ENCOUNTER: Subsequent ACUITY: 2 weeks PAIN SCORE: Non-responsive. LOCATION: Bilateral chest FINDINGS: A single view of the chest demonstrates endotracheal tube in good position. NG coiled in stomach. 2 r ight-sided chest tubes remain present without pneumothorax. Bilateral mostly basilar airspace disease similar to September 10. No new infiltrate. CONCLUSION: 1. Stable exam since September 10. 2 right-sided chest tubes without pneumothorax. Austin Jarquin MD on September 11, 2017 at 6:17 Board Certified Radiologist. This report was verified electronically.
[2017-09-11] MEDS: MAGNESIUM HYDROXIDE SUSP 30 ML CUP PO SCH ×2 (06:31→17:00)
[2017-09-11] MEDS: CHLORHEXIDINE 0.12% (ORAL KIT) 15 ML CUP MT SCH ×2 (07:43→20:20)
[2017-09-11] MEDS: SODIUM CHLORIDE 0.9% FLUSH 10 ML FLUSH IV FLUSH SCH ×2 (07:43→20:20)
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
[2017-09-11] MEDS: DOCUSATE SODIUM 50 MG/SENNA 8.6 MG TAB PO SCH ×2 (08:37→20:20)
[2017-09-11] MEDS: PANTOPRAZOLE SODIUM 40 MG VIAL IV PUSH SCH (08:37)
[2017-09-11] MEDS: LACTULOSE SYRUP 20 GM/30 ML CUP PO SCH (08:37)
[2017-09-11] MEDS: EPOPROSTENOL NEB SOLUTION 20 NG/KG/MIN 100 ML NEB SCH ×2 (09:00)
[2017-09-11] MEDS ORDERED: ALBUMIN 25% INJ 50 ML IV ONE (13:15)
[2017-09-11] MEDS ORDERED: FUROSEMIDE 40 MG/4 ML VIAL IV PUSH ONE (13:15)
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
[2017-09-11] MEDS: BISACODYL 10 MG SUPP RECTAL SCH (14:30)
[2017-09-11] MEDS: MIDAZOLAM 100 MG/100 ML INJ 100 ML IV PRN (15:18)
--- NOTE | 2017-09-11 17:10 | RADRPT ---
EXAM DATE/TIME: 09/11/2017 17:27 [place] COMPARISON: No previous studies available for comparison. INDICATIONS : Bilateral leg swelling. MEDICAL HISTORY : Spontaneous pneumothorax. SURGICAL HISTORY : Chest tube placement. ENCOUNTER: Initial ACUITY: 1 day PAIN SCORE: Non-responsive LOCATION: Bilateral legs. TECHNIQUE: Venous ultrasound of the left and right leg was performed from the inguinal ligament to the proximal calf. Real-time, color Doppler and spectral tracing, compression and augmentation techniques were us ed. FINDINGS: RIGHT LEG: There is normal compressibility of the deep venous system from the inguinal region to the proximal ca lf. No echogenic clot is seen in the lumen of the common femoral, femoral, popliteal, and posterior tibial veins. There is a normal response of the venous system to proximal and distal augmentation an d respiration. LEFT LEG: There is normal compressibility of the deep venous system from the inguinal region to the proximal ca lf. No echogenic clot is seen in the lumen of the common femoral, femoral, popliteal, and posterior tibial veins. There is a normal response of the venous system to proximal and distal augmentation an d respiration. CONCLUSION: No evidence of DVT. Douglas Baker MD on September 11, 2017 at 17:08 Board Certified Radiologist. This report was verified electronically.
[2017-09-11] MEDS: EPOPROSTENOL NEB SOLUTION 50 NG/KG/MIN 100 ML NEB SCH ×2 (17:59)
[2017-09-11 20:41] LABS: BILIRUBIN, URINE NEG (NEG); BLOOD, URINE NEG (NEG); GLUCOSE,URINE NEG (NEG); KETONE, URINE NEG (NEG); NITRITE,URINE NEG (NEG); SQUAMOUS EPITHELIAL CELL URINE <1 /hpf (0-5); URINE COLOR YELLOW (YELLW/STRAW); URINE LEUKOCYTE ESTERASE NEG (NEG)
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
[2017-09-12] VITALS (19 sets, daily range): BP systolic 103–116; BP diastolic 3–65; PULSE 104–120; RESP 17–20; TEMP 98.2–99.7; O2SAT 95–99
[2017-09-12] MEDS: PROPOFOL 1000 MG/100 ML INJ 100 ML IV PRN ×7 (00:26→21:53)
[2017-09-12] MEDS: fentaNYL DRIP 250 ML IV PRN ×3 (00:27→20:49)
[2017-09-12] MEDS: EPOPROSTENOL NEB SOLUTION 50 NG/KG/MIN 100 ML NEB SCH ×8 (02:16→16:40)
[2017-09-12] MEDS: ENOXAPARIN SODIUM 30 MG/0.3 ML SYRINGE SQ SCH ×2 (02:16→15:19)
[2017-09-12] MEDS: RESP: ALBUTEROL 2.5 MG/IPRATROPIUM 0.5 MG NEB (SCH) NEB ×4 (03:55→21:16)
[2017-09-12] MEDS: CHLORHEXIDINE GLUCONATE 2 % 1 PACK (2 CLOTHS) TOP SCH (04:00)
[2017-09-12] MEDS: ARTIFICIAL TEARS OPTH SOLN 15 ML BTL EACH EYE SCH ×4 (04:22→20:49)
[2017-09-12] MEDS: MAGNESIUM HYDROXIDE SUSP 30 ML CUP PO SCH ×2 (05:00→16:37)
--- NOTE | 2017-09-12 05:02 | RADRPT ---
EXAM DATE/TIME: 09/12/2017 03:24 [facility] COMPARISON: CHEST SINGLE AP, September 11, 2017, 5:26. INDICATIONS : Pneumothorax. MEDICAL HISTORY : Spontaneous pneumothorax. SURGICAL HISTORY : Chest tube placement. ENCOUNTER: Subsequent ACUITY: 1 week PAIN SCORE: Non-responsive. LOCATION: Bilateral chest FINDINGS: Bibasilar consolidation again noted, not significantly changed. 2 right chest tubes remain in place. Density in pneumothorax. Multiple right rib fractures are again seen. Endotracheal tube tip is approximately 5 cm above the david. Nasogastric tube coiled in the stomach. CONCLUSION: No significant change left greater than right basilar consolidation. 2 right chest tubes remain in pl [facility]. No pneumothorax seen. There are multiple right rib fractures. Gray Kilgore MD on September 12, 2017 at 5:00 Board Certified Radiologist. This report was verified electronically.
[2017-09-12 06:04] LABS: HEMATOCRIT 28.5 % (39.0-51.0); HEMOGLOBIN 9.4 GM/DL (13.0-17.0); MEAN CELL VOLUME 87.2 FL (80.0-100.0); MEAN CORPUSCULAR HEMOGLOBIN 28.7 PG (27.0-34.0); MEAN CORPUSCULAR HGB CONC 32.9 % (32.0-36.0); MEAN PLATELET VOLUME 9.8 FL (7.0-11.0); PLATELET COUNT 731 TH/MM3 (150-450); RED BLOOD COUNT 3.27 MIL/MM3 (4.50-5.90); RED CELL DISTRIBUTION WIDTH 13.9 % (11.6-17.2); WHITE BLOOD COUNT 15.3 TH/MM3 (4.0-11.0)
[2017-09-12 06:30] LABS: BICARBONATE 30.8 MEQ/L (21.0-32.0); CALCIUM 7.8 MG/DL (8.5-10.1); CREATININE 0.88 MG/DL (0.60-1.30)
[2017-09-12] MEDS: BISACODYL 10 MG SUPP RECTAL SCH (07:05)
[2017-09-12] MEDS: SODIUM CHLORIDE 0.9% FLUSH 10 ML FLUSH IV FLUSH SCH ×2 (07:05→20:49)
[2017-09-12] MEDS: LACTULOSE SYRUP 20 GM/30 ML CUP PO SCH (07:05)
[2017-09-12] MEDS: CHLORHEXIDINE 0.12% (ORAL KIT) 15 ML CUP MT SCH ×2 (07:05→20:00)
[2017-09-12] MEDS: DOCUSATE SODIUM 50 MG/SENNA 8.6 MG TAB PO SCH ×2 (07:05→20:49)
[2017-09-12] MEDS: PANTOPRAZOLE SODIUM 40 MG VIAL IV PUSH SCH (07:49)
--- NOTE | 2017-09-12 08:24 | HHI.PR ---
Neuropsych Emotional Emotional: UnabletoAssess: Emotional, Anxious/Fearful, Depressed/Sad, Hostile/ Resentful, Irritable/Angry/Frustrate, Labile, Constricted/Blunted Behavior Behavior: Intact: Impulsive/Agitated, Unable to Asses: Behavior, Coping/ Acceptance, Cooperative w/ Treatment, Motivation, Frustration Tolerance/[place], Suicidal/Homicidal Risk Cognitive Cognitive: Unable to Asses: Cognitive, Attention/Concentration, Confused/ Orientation, Insight/Awareness, Judgement/Problem-Solving, Memory Psychosocial Psychosocial: Unable to Asses: Psychosocial, Family/Other Adjustment, Realistic Expectation, Self-Esteem/Confidence Progress Notes/Response to Tx Contents of Sessions: Adjustment, Level of Consciousness Time with Patient: 15 minutes Premorbid psychological status Premorbid Cognitive, Emotional and Behavioral Status: Stable The patient has high school years of education and a solid work history prior to this injury. The patient has unknown psychiatric difficulties, as described above. Substance abuse history is unknown. Behavioral Reactions of Patient and Family/Support System: Unable to Assess. The patients family is experiencing ongoing issues of adjustment given the nature of the injury, and this aspect of recovery will require ongoing monitoring. Emotional/Behavioral Status of Patient and Family/Support System: Unable to Assess. Pertinent issues, if appropriate to this patients clinical care, are described in detail above. Maximizing acute care outcome It is recommended that the patient be monitored for emergent behavioral impulsivity as the medical condition evolves. This patients neuropathological challenges may limit his rehabilitation potential going forward, and these challenges will require specialized therapeutic skills to maximize outcome. Additionally, the patients family is experiencing ongoing issues of adjustment given the traumatic nature of the injury, and they may benefit from ongoing psychological assistance. At this point in the recovery process, the patient does not have cognitive capacity as the patient is unable to understand a situation and its likely consequences, nor is he able to manipulate information rationally. Cognitive capacity will be assessed throughout the recovery process. Anticipated Problems Ongoing areas of concern will include behavioral impulsivity, lack of insight and judgment, which is expected to improve with time and treatment. Presently , the patient is intubated and sedated. Given the severity of the patient's injuries it is my clinical opinion that this patient will be unable to return to any type of productive employment for at least one year, perhaps longer and likely never. This patient is not considered safe to discharge home without supervision. Treatment Plan This clinician will continue to follow with you throughout the course of this patients critical care treatment, and I will be available to meet with the patients family/support system to facilitate their understanding and the ongoing care of their family member. The goals of neuropsychological intervention shall be both educational and supportive to the family/support system as is deemed clinically appropriate. Dyllan Martinez [place] Level: I:No response-total assistance Impression This is a 48 year old male s/[place] [facility] [place] now intubated and sedated. Questionable TBI. Diagnosis: (1) Neurocognitive disorder Progress Note Narrative PTD 13. The patient remains intubated and sedated with pulmonary challenges. He is [place] No neurobehavioral issues, including no agitation/ restlessness. I will follow. Luis Vergara PhD Sep 12, 2017 8:23 am
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
[2017-09-12] MEDS ORDERED: ALBUMIN 25% INJ 50 ML IV ONE (09:00)
[2017-09-12] MEDS ORDERED: FUROSEMIDE 40 MG/4 ML VIAL IV PUSH ONE (09:00)
[2017-09-12] MEDS ORDERED: Vancomycin Consult Pharmacy 1 EA OTHER SCH (10:30)
[2017-09-12] MEDS ORDERED: VANCOMYCIN INJ 1,000 MG in SODIUM CHLOR 0.9% 250 ML INJ 250 ML IV ONE (10:30)
[2017-09-12 11:08] LABS: ALBUMIN 1.7 GM/DL (3.4-5.0); DIRECT BILIRUBIN ADULT 0.2 MG/DL (0.0-0.2)
[2017-09-12 11:09] LABS: INDIRECT BILIRUBIN 0.2 MG/DL (0.0-0.8); TOTAL BILIRUBIN ADULT 0.4 MG/DL (0.2-1.0)
[2017-09-12] MEDS ORDERED: VANCOMYCIN INJ 1,500 MG in SODIUM CHLORID 0.9% 500 ML INJ 500 ML IV SCH (12:00)
[2017-09-12] MEDS ORDERED: VANCOMYCIN INJ 1,250 MG in SODIUM CHLOR 0.9% 250 ML INJ 250 ML IV SCH (12:00)
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
--- NOTE | 2017-09-12 15:20 | PD.ID.CON ---
History of Present Illness Service ID Consult Requested By trauma team Reason for Consult Evaluation and Mment of MRSA pneumonia. Primary Care Physician Unknown Diagnoses: History of Present Illness is a 48 y/o male involved in a LONGTERM was found at the median-GCS 15,c/ o pain right chest,right wrist,right elbow,left wrist,HD normal,neuro intact- proceeded with ET intubation in for SOB with severe blunt right chest trauma and multi trauma. Head CT showed no acute intracranial abnormality.He was noted to have severe right chest trauma and right chest tube was placed. He sustained multiple fractures including multiple right ribs, left distal radius, right distal radius, open right elbow fracture dislocation, right clavicle fracture, right fifth metacarpal and middle phalangeal fifth digit finger fracture. Summary of procedures in hospital: On 08/30/17 he underwent: Irrigation of right elbow with external fixator placement to the right elbow and right distal radius. On 09/02/17 he underwent revision of external fixation right elbow, open reduction internal fixation right radial shaft, open reduction internal fixation right distal radius intra-articular fracture, open reduction internal fixation left distal radius fracture, open reduction and pinning of left distal radial ulnar joint On 09/04/17 right chest tube was placed. Follow-up head CT 09/04/17 showed:. Infraorbital soft tissue emphysema, likely posttraumatic. No acute intracranial abnormality or significant interval change. Indwelling tubes and caths: 09/02/17: RIJ TLC 08/30/2017: Santos cath in place. Patient developed fevers and new workup sent including sputum cultures. Sputum culture positive for MRSA and ID consulted for MRSA pneumonia. Review of Systems ROS Limitations: Intubated, Altered Mental Status Past Family Social History Allergies: Coded Allergies: No Known Allergies (Unverified , 08/30/17) Past Medical History per HPI Past Surgical History Per HPI Reported Medications Reported Meds & Active Scripts Active Reported Effexor (Venlafaxine HCl) 75 Mg Tab 75 Mg DAILY Active Ordered Medications Current Medications Medications (Trade) Dose Ordered Sig/Lazara Route Start Time Stop Time Status Last Admin (Protonix Inj) 40 mg DAILY IV PUSH 08/30/17 16:45 09/12/17 07:49 Miscellaneous Information 1 Q361D XX 08/30/17 16:45 (Chlorhexidine 2% Cloth) Taper DAILY@04 TOP 08/31/17 04:00 08/27/18 03:59 09/03/17 04:00 (Chlorhexidine 2% Cloth) 3 pack UNSCH PRN TOP 08/30/17 16:45 ([place]-Colace) 1 tab BID PO 08/30/17 21:00 09/11/17 08:37 (Senokot) 17.2 mg Q12H PRN PO 08/30/17 16:45 (Dulcolax Supp) 10 mg DAILY PRN RECTAL 08/30/17 16:45 (Peridex 0.12% Liq) 15 ml BID@08,20 MT 08/30/17 20:00 09/12/17 07:05 (NS Flush) 2 ml UNSCH PRN IV FLUSH 08/30/17 20:30 (NS Flush) 2 ml BID IV FLUSH 08/30/17 21:00 09/12/17 07:05 (Morphine Inj) 5 mg Q3H PRN IV PUSH 08/30/17 20:30 Future Hold 09/01/17 03:47 (Percocet 5-325 Mg) 1 tab Q4H PRN PO 08/30/17 20:30 Future Hold (Percocet 5-325 Mg) 2 tab Q6H PRN PO 08/30/17 20:30 Future Hold (Zofran Inj) 4 mg Q6H PRN IV PUSH 08/30/17 20:30 Miscellaneous Information D/C ICU ELECTROLYTE ORDERS... UNSCH PRN .XX 08/31/17 01:15 Miscellaneous Information ICU - CALL ORDERING PHYSIC... UNSCH PRN .XX 08/31/17 01:15 Potassium Chloride 100 ml @ 25 mls/hr UNSCH PRN IV 08/31/17 01:15 09/06/17 18:13 (K-Lyte Cl Eff) 50 meq UNSCH PRN PO 08/31/17 01:15 Potassium Chloride 100 ml @ 50 mls/hr UNSCH PRN IV 08/31/17 01:15 Magnesium Sulfate 4 gm/Sodium Chloride 108 ml @ 54 mls/hr UNSCH PRN IV 08/31/17 01:15 Magnesium Sulfate 2 gm/Sodium Chloride 104 ml @ 52 mls/hr UNSCH PRN IV 08/31/17 01:15 (Mag-Ox) 800 mg UNSCH PRN PO 08/31/17 01:15 Sodium Phosphate 30 mmol/Sodium Chloride 260 ml @ 43.333 mls/ hr UNSCH PRN IV 08/31/17 01:15 (K-Phos) 2,000 mg UNSCH PRN PO 08/31/17 01:15 Potassium Phosphate 30 mmol/ Sodium Chloride 260 ml @ 43.333 mls/ hr UNSCH PRN IV 08/31/17 01:15 (Effexor Xr) 75 mg DAILY PO 09/01/17 13:00 Future Hold 09/07/17 08:04 Acetaminophen 100 ml @ 400 mls/hr Q6H PRN IV 09/01/17 16:30 09/10/17 09:35 (Lovenox Inj) 30 mg Q12H SQ 09/03/17 03:00 Future hold 09/12/17 15:19 (Lactulose Liq) 30 ml DAILY PO 09/04/17 09:00 09/11/17 08:37 Cisatracurium Besylate 100 mg/ Sodium Chloride 250 ml @ 12.37 mls/ hr TITRATE PRN IV 09/06/17 10:00 Future Hold 09/09/17 07:27 Fentanyl Citrate 250 ml @ 5 mls/hr TITRATE PRN IV 09/06/17 10:00 09/12/17 14:30 Propofol 100 ml @ 2.061 mls/ hr TITRATE PRN IV 09/06/17 10:00 09/12/17 15:19 (Milk Of Magnesia Liq) 30 ml Q12H PO 09/07/17 17:00 09/11/17 06:31 Midazolam HCl 100 ml @ 2 mls/hr TITRATE PRN IV 09/09/17 14:30 09/11/17 15:18 (Duoneb Neb) 1 ampule Q6HR NEB NEB 09/10/17 10:00 09/12/17 16:24 (Albuterol Neb) 2.5 mg Q2HR NEB PRN NEB 09/10/17 09:00 (Dulcolax Supp) 10 mg DAILY RECTAL 09/11/17 11:00 09/11/17 14:30 Epoprostenol Sodium 87.5 ml/ Sodium Chloride 100 ml @ 5 mls/hr Q8H NEB 09/11/17 16:00 09/12/17 16:40 (Tears Naturale Opth Soln) 1 drop Q8HR EACH EYE 09/12/17 14:00 09/12/17 12:47 Pharmacy Profile Note 0 ml @ 0 mls/hr UNSCH OTHER 09/12/17 10:30 Miscellaneous Information SPECIFIC LAB TO BE DRAWN:VANCOMYCIN TROUGH DATE TO... ONCE ONCE .XX 09/13/17 23:45 09/13/17 23:46 Vancomycin HCl 1500 mg/Sodium Chloride 515 ml @ 250 mls/hr Q12H IV 09/12/17 12:00 09/12/17 12:45 Family History reviewed and NC to current ID problems. 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 Father of patient is reportedly an anesthesiologist in [place]. Physical Exam Vital Signs Vital Signs Date Time Temp Pulse Resp B/P (MAP) Pulse Ox O2 Delivery O2 Flow Rate FiO2 09/12/17 14:00 112 09/12/17 12:17 98 55 09/12/17 12:00 98.4 108 17 112/65 (81) 99 09/12/17 12:00 107 09/12/17 12:00 60 09/12/17 10:00 112 09/12/17 08:00 99.3 114 18 103/3 (36) 98 09/12/17 08:00 114 09/12/17 08:00 60 09/12/17 07:44 95 65 09/12/17 06:00 120 09/12/17 04:00 99.7 112 18 108/58 (75) 95 09/12/17 04:00 60 09/12/17 04:00 112 09/12/17 03:55 95 60 09/12/17 02:00 112 09/12/17 01:18 96 60 09/12/17 00:00 60 09/12/17 00:00 99.7 118 20 116/64 (81) 95 09/12/17 00:00 118 09/11/17 22:00 126 09/11/17 21:02 99 60 09/11/17 20:00 60 09/11/17 20:00 112 09/11/17 20:00 99.3 112 16 143/59 (87) 93 09/11/17 18:00 112 09/11/17 16:52 94 55 09/11/17 16:00 109 09/11/17 16:00 98.6 116 20 99/73 (82) 95 09/11/17 16:00 60 Physical Exam GENERAL: This is a well-nourished, well-developed patient, in no apparent CP distress. SKIN: No generalized rashes. Cool and dry. HEAD: Normocephalic. EYES: Pupils equal round and reactive.No scleral icterus. No injection or drainage. ENT: Intubated. NECK: Trachea midline. Supple, nontender, no meningeal signs. CARDIOVASCULAR: RESPIRATORY: BS decreased in bases. GASTROINTESTINAL: Abdomen soft, non-tender, nondistended. MUSCULOSKELETAL: RUE in external fixator. LUE in dressing. NEUROLOGICAL: Sedated Psych could not be assessed. IV line sites with no e.o infection. Laboratory Laboratory Tests Test 09/11/17 19:45 09/12/17 04:44 09/12/17 05:30 09/12/17 12:20 Urine Color YELLOW Urine Turbidity CLEAR Urine pH 6.0 Urine Specific [place] 1.016 Urine Protein TRACE Urine Glucose (UA) NEG Urine Ketones NEG Urine Occult Blood NEG Urine Nitrite NEG Urine Bilirubin NEG Urine Urobilinogen LESS THAN 2.0 Urine Leukocyte Esterase NEG Urine RBC 3 Urine WBC 1 Urine Squamous Epithelial Cells <1 Microscopic Urinalysis Comment CATH-CULT NOT IND Blood Gas Puncture Site RIGHT FEMORAL RT PEDAL Blood Gas Patient Temperature 98.6 98.6 Blood Gas HCO3 30 30 Blood Gas Base Excess 5.4 5.6 Blood Gas Oxygen Saturation 87 90 Arterial Blood pH 7.44 7.43 Arterial Blood Partial Pressure CO2 45 46 Arterial Blood Partial Pressure O2 56 64 Arterial Blood Oxygen Content 11.9 11.7 Arterial Blood Carboxyhemoglobin 1.6 1.7 Arterial Blood Methemoglobin 0.7 0.9 Blood Gas Hemoglobin 9.7 9.2 Oxygen Delivery Device VENT VENTILATOR Blood Gas Ventilator Setting SEE COMMENT PRVC16/525/1.1/+10 Blood Gas Inspired Oxygen 60 50 White Blood Count 15.3 Red Blood Count 3.27 Hemoglobin 9.4 Hematocrit 28.5 Mean Corpuscular Volume 87.2 Mean Corpuscular Hemoglobin 28.7 Mean Corpuscular Hemoglobin Concent 32.9 Red Cell Distribution Width 13.9 Platelet Count 731 Mean Platelet Volume 9.8 Blood Urea Nitrogen 16 Creatinine 0.88 Random Glucose 123 Calcium Level 7.8 Sodium Level 141 Potassium Level 4.3 Chloride Level 104 Carbon Dioxide Level 30.8 Anion Gap 6 Estimat Glomerular Filtration Rate 75 Total Bilirubin 0.4 Direct Bilirubin 0.2 Indirect Bilirubin 0.2 Aspartate Amino Transf (AST/SGOT) 45 Alanine Aminotransferase (ALT/SGPT) 140 Alkaline Phosphatase 202 Total Protein 6.0 Albumin 1.7 Date/Time Source Procedure Growth Status 09/11/17 12:30 Blood Peripheral Aerobic Blood Culture - Preliminary NO GROWTH IN 1 DAY Resulted 09/11/17 12:30 Blood Peripheral Anaerobic Blood Culture - Preliminary NO GROWTH IN 1 DAY Resulted 09/11/17 12:00 Sputum Endotracheal Gram Stain - Final Resulted 09/11/17 12:00 Sputum Endotracheal Sputum Culture - Preliminary MODERATE GROWTH NORMAL RESPIRATORY FL... Resulted 09/05/17 12:20 Urine Catheterized Urine Urine Culture - Final NO GROWTH IN 48 HOURS. Complete Result Diagram: 09/12/17 0530 09/12/17 0530 Imaging Last Impressions Chest X-Ray 09/12/17 0600 Signed Impressions: Service Date/Time: Tuesday, September 12, 2017 03:24 - CONCLUSION: No significant change left greater than right basilar consolidation. 2 right chest tubes remain in place. No pneumothorax seen. There are multiple right rib fractures. Gray Kilogre MD Lower Extremity Ultrasound 09/11/17 0000 Signed Impressions: Service Date/Time: August 17:27 - CONCLUSION: No evidence of DVT. Douglas Baker MD Chest Tube Insertion 09/08/17 0000 Signed Impressions: Service Date/Time: Friday, September 08, 2017 16:41 - CONCLUSION: Uncomplicated chest tube placement as above. Gray Jimenez MD Chest CT 09/05/17 0000 Signed Impressions: Service Date/Time: Tuesday, September 05, 2017 11:48 - CONCLUSION: 1. Persistent moderate size right pneumothorax, slightly decreased in size from yesterday's CT. 2 right chest tubes have been placed in the more lateral and inferior chest tube is posterior to the lung and the more anterior chest tube appears to be within the right upper lobe lung parenchyma. The 2. Extensive chest wall subcutaneous emphysema remains present and increased., right greater than left. 3. There is bilateral lower lung zone volume loss and airspace consolidation, slightly increased from yesterday's exam. 4. Stable multiple right rib fractures and partially visualized right clavicle fracture. Gray Hopkins MD Head CT 09/04/17 0000 Signed Impressions: Service Date/Time: August 11:02 - CONCLUSION: 1. Infraorbital soft tissue emphysema, likely posttraumatic. 2. No acute intracranial abnormality or significant interval change. Michael Boles MD Wrist X-Ray 09/02/17 0000 Signed Impressions: Service Date/Time: Saturday, September 02, 2017 00:00 - CONCLUSION: Good position and alignment on this postoperative study. Douglas Baker MD Elbow X-Ray 09/02/17 0000 Signed Impressions: Service Date/Time: Saturday, September 02, 2017 14:26 - CONCLUSION: External fixator device in place. Douglas Baker MD Pelvis X-Ray 08/30/17 1521 Signed Impressions: Service Date/Time: Wednesday, August 30, 2017 15:21 - CONCLUSION: 1. Negative examination. Lucius Trevino MD Cervical Spine CT 08/30/17 1521 Signed Impressions: Service Date/Time: Wednesday, August 30, 2017 16:09 - CONCLUSION: 1. Negative for fracture or subluxation of the cervical spine. No canal stenosis. 2. Endotracheal tube and right chest tube present. Right rib fractures. Austin Jarquin MD Abdomen/Pelvis CT 08/30/17 1521 Signed Impressions: Service Date/Time: Wednesday, August 30, 2017 16:20 - CONCLUSION: Numerous lower right rib fractures with small right pneumothorax and hemothorax and dependent consolidation in both lungs. Right chest tube present. No solid visceral injury identified within the abdomen or pelvis. No free air or free fluid. Austin Jarquin MD Upper Extremity CT 08/30/17 0000 Signed Impressions: Service Date/Time: Wednesday, August 30, 2017 16:30 - CONCLUSION: 1. Subluxation of the radius anteriorly at the radiocapitellar joint. 2. Severely comminuted proximal ulnar fracture as above portions of the articular surface displaced proximally above the cochlea. Fracture fragments are markedly displaced and rotated. See above discussion. Austin Jarquin MD Radius/Ulna X-Ray 08/30/17 0000 Signed Impressions: Service Date/Time: Wednesday, August 30, 2017 15:21 - CONCLUSION: 1. Displaced fracture involving the distal left radius. 2. Fracture of the ulnar styloid. 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 Acute resp failure on vent. Likely needs trach and PEG. Recs: DC Vanco IV Start Zyvox IV Consider holding off on Effexor if not needed. (upon review trauma team had held effexor for other reasons) If patient has issues with Vanco cannot use Dapto in pneumonia. Zyvox has drug interaction with Effexor. Will dw Trauma team to consider holding as patient is post trauma and sedated and likely not going to benefit immediately from Effexor immediately. Once MRSA treatment completed with Zyvox this can be resumed if clinically deemed necessary. Follow Vanco LUIS if high would prefer Zyvox. Linus Barriga Patients in room. to cover for me this weekend. Lian Becerril MD Sep 12, 2017 15:20
[2017-09-12] MEDS: MIDAZOLAM 100 MG/100 ML INJ 100 ML IV PRN (20:48)
[2017-09-12] MEDS: LINEZOLID 600 MG PREMIX 300 ML IV SCH (20:49)
[2017-09-13] VITALS (18 sets, daily range): BP systolic 102–144; BP diastolic 55–75; PULSE 96–121; RESP 16; TEMP 97.5–99; O2SAT 91–98
[2017-09-13] MEDS: RESP: ALBUTEROL 2.5 MG/IPRATROPIUM 0.5 MG NEB (SCH) NEB ×4 (03:38→20:02)
[2017-09-13] MEDS: CHLORHEXIDINE GLUCONATE 2 % 1 PACK (2 CLOTHS) TOP SCH (04:00)
--- NOTE | 2017-09-13 04:08 | RADRPT ---
EXAM DATE/TIME: 09/13/2017 03:27 [facility] COMPARISON: CHEST SINGLE AP, September 12, 2017, 3:24. INDICATIONS : Follow up right pneumothorax. MEDICAL HISTORY : Spontaneous pneumothorax. SURGICAL HISTORY : Chest tube placement. ENCOUNTER: Subsequent ACUITY: 1 week PAIN SCORE: 10/10 LOCATION: Bilateral chest FINDINGS: A single view of the chest demonstrates the right-sided chest tubes are both in good position. Right IJ central line, nasogastric tube and endotracheal tube are all in good position. Infiltrate in the m idlung zones. Osseous structures are intact. CONCLUSION: Stable tubes and catheters. Small infiltrates both midlung zones are unchanged. Valdo Ireland MD on September 13, 2017 at 4:05 Board Certified Radiologist. This report was verified electronically.
[2017-09-13] MEDS: MAGNESIUM HYDROXIDE SUSP 30 ML CUP PO SCH ×2 (05:00→17:00)
[2017-09-13] MEDS: PROPOFOL 1000 MG/100 ML INJ 100 ML IV PRN ×5 (05:00→22:37)
[2017-09-13 05:09] LABS: AUTOMATED NEUTROPHIL # 8.4 TH/MM3 (1.8-7.7); BASOPHIL # 0.1 TH/MM3 (0-0.2); BASOPHIL % 0.5 % (0.0-2.0); EOSINOPHIL # 0.9 TH/MM3 (0-0.4); EOSINOPHIL % 7.2 % (0.0-4.0); HEMATOCRIT 27.8 % (39.0-51.0); LYMPH % 14.1 % (9.0-44.0); LYMPHOCYTE # 1.7 TH/MM3 (1.0-4.8); MEAN CELL VOLUME 89.2 FL (80.0-100.0); MEAN CORPUSCULAR HGB CONC 32.5 % (32.0-36.0); MEAN PLATELET VOLUME 9.6 FL (7.0-11.0); MONOCYTE # 1.2 TH/MM3 (0-0.9); NEUT % 68.2 % (16.0-70.0); PLATELET COUNT 678 TH/MM3 (150-450); RED BLOOD COUNT 3.11 MIL/MM3 (4.50-5.90); RED CELL DISTRIBUTION WIDTH 13.6 % (11.6-17.2); WHITE BLOOD COUNT 12.3 TH/MM3 (4.0-11.0)
[2017-09-13 05:28] LABS: BICARBONATE 31.7 MEQ/L (21.0-32.0); CREATININE 0.85 MG/DL (0.60-1.30)
[2017-09-13] MEDS: ARTIFICIAL TEARS OPTH SOLN 15 ML BTL EACH EYE SCH ×3 (06:00→22:00)
[2017-09-13] MEDS: ENOXAPARIN SODIUM 30 MG/0.3 ML SYRINGE SQ SCH ×2 (06:19→14:01)
[2017-09-13] MEDS: CHLORHEXIDINE 0.12% (ORAL KIT) 15 ML CUP MT SCH ×2 (08:00→19:42)
[2017-09-13] MEDS: EPOPROSTENOL NEB SOLUTION 50 NG/KG/MIN 100 ML NEB SCH ×6 (08:00→15:34)
[2017-09-13] MEDS: LACTULOSE SYRUP 20 GM/30 ML CUP PO SCH (08:15)
[2017-09-13] MEDS: LINEZOLID 600 MG PREMIX 300 ML IV SCH ×2 (08:15→19:42)
[2017-09-13] MEDS: PANTOPRAZOLE SODIUM 40 MG VIAL IV PUSH SCH (08:15)
[2017-09-13] MEDS: DOCUSATE SODIUM 50 MG/SENNA 8.6 MG TAB PO SCH ×2 (08:15→19:42)
[2017-09-13] MEDS: SODIUM CHLORIDE 0.9% FLUSH 10 ML FLUSH IV FLUSH SCH ×2 (09:00→19:43)
[2017-09-13] MEDS: BISACODYL 10 MG SUPP RECTAL SCH (09:00)
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
[2017-09-13] MEDS: fentaNYL DRIP 250 ML IV PRN (18:00)
[2017-09-13] MEDS: MIDAZOLAM 100 MG/100 ML INJ 100 ML IV PRN (18:34)
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
[2017-09-13] MEDS ORDERED: PHARMACY ORDERED LAB ONE (23:45)
[2017-09-14] VITALS (19 sets, daily range): BP systolic 93–114; BP diastolic 54–72; PULSE 76–96; RESP 16–18; TEMP 97.5–99.5; O2SAT 92–98
[2017-09-14] MEDS: EPOPROSTENOL NEB SOLUTION 50 NG/KG/MIN 100 ML NEB SCH ×6 (00:52→16:00)
[2017-09-14] MEDS: ENOXAPARIN SODIUM 30 MG/0.3 ML SYRINGE SQ SCH ×2 (02:09→15:05)
[2017-09-14] MEDS: PROPOFOL 1000 MG/100 ML INJ 100 ML IV PRN ×7 (02:09→23:48)
[2017-09-14] MEDS: RESP: ALBUTEROL 2.5 MG/IPRATROPIUM 0.5 MG NEB (SCH) NEB ×2 (03:14→09:29)
[2017-09-14] MEDS: CHLORHEXIDINE GLUCONATE 2 % 1 PACK (2 CLOTHS) TOP SCH (04:00)
[2017-09-14 04:55] LABS: AUTOMATED NEUTROPHIL # 5.9 TH/MM3 (1.8-7.7); BASOPHIL # 0.1 TH/MM3 (0-0.2); BASOPHIL % 0.6 % (0.0-2.0); EOSINOPHIL % 10.1 % (0.0-4.0); HEMATOCRIT 23.5 % (39.0-51.0); HEMOGLOBIN 7.9 GM/DL (13.0-17.0); LYMPH % 15.9 % (9.0-44.0); LYMPHOCYTE # 1.5 TH/MM3 (1.0-4.8); MEAN CORPUSCULAR HGB CONC 33.7 % (32.0-36.0); MEAN PLATELET VOLUME 9.6 FL (7.0-11.0); MONO % 12.9 % (0.0-8.0); MONOCYTE # 1.2 TH/MM3 (0-0.9); NEUT % 60.5 % (16.0-70.0); PLATELET COUNT 599 TH/MM3 (150-450); RED BLOOD COUNT 2.64 MIL/MM3 (4.50-5.90); RED CELL DISTRIBUTION WIDTH 13.4 % (11.6-17.2); WHITE BLOOD COUNT 9.7 TH/MM3 (4.0-11.0)
[2017-09-14 05:26] LABS: ALBUMIN 1.6 GM/DL (3.4-5.0); BICARBONATE 32.1 MEQ/L (21.0-32.0); CALCIUM 7.8 MG/DL (8.5-10.1); CREATININE 0.91 MG/DL (0.60-1.30); MAGNESIUM 2.8 MG/DL (1.5-2.5)
[2017-09-14 05:30] LABS: DIRECT BILIRUBIN ADULT 0.2 MG/DL (0.0-0.2); INDIRECT BILIRUBIN 0.1 MG/DL (0.0-0.8); PHOSPHORUS 4.6 MG/DL (2.5-4.9); TOTAL BILIRUBIN ADULT 0.3 MG/DL (0.2-1.0); TOTAL PROTEIN 5.7 GM/DL (6.4-8.2)
--- NOTE | 2017-09-14 06:07 | RADRPT ---
EXAM DATE/TIME: 09/14/2017 04:42 [facility] COMPARISON: CHEST SINGLE AP, September 13, 2017, 3:27. INDICATIONS : Pneumothorax. MEDICAL HISTORY : Spontaneous pneumothorax. SURGICAL HISTORY : Chest tube placement. ENCOUNTER: Subsequent ACUITY: 1 week PAIN SCORE: Non-responsive. LOCATION: Bilateral chest FINDINGS: A single view of the chest demonstrates 2 right-sided chest tubes without pneumothorax. Multiple righ t rib fractures. Subsegmental airspace disease right lung base. Slight increase in left basilar airsp ryan disease since September 13. Endotracheal tube, nasogastric tube and right central line unchanged. CONCLUSION: 1. Slight increase in left basilar airspace disease over the last day. 2 right-sided chest tubes with out pneumothorax. Multiple right rib fractures. Austin Jarquin MD on September 14, 2017 at 6:04 Board Certified Radiologist. This report was verified electronically.
[2017-09-14] MEDS: MAGNESIUM HYDROXIDE SUSP 30 ML CUP PO SCH ×2 (06:25→16:33)
[2017-09-14] MEDS: ARTIFICIAL TEARS OPTH SOLN 15 ML BTL EACH EYE SCH ×3 (06:26→20:50)
[2017-09-14] MEDS: fentaNYL DRIP 250 ML IV PRN ×4 (06:29→23:48)
[2017-09-14] MEDS: MIDAZOLAM 100 MG/100 ML INJ 100 ML IV PRN ×3 (06:32→20:08)
[2017-09-14] MEDS: CHLORHEXIDINE 0.12% (ORAL KIT) 15 ML CUP MT SCH ×2 (08:00→20:08)
[2017-09-14 08:04] LABS: BANDS 6 % (0-6); LYMPHOCYTES 16 % (9-44); METAMYELOCYTES 3 % (0-1); MONOCYTES 17 % (0-8); MYELOCYTES 2 % (0-0); NEUTROPHIL # MANUAL DIFF 5.6 TH/MM3 (1.8-7.7); POLYS (SEG NEUTROPHILS) 47 % (16-70)
[2017-09-14] MEDS: LINEZOLID 600 MG PREMIX 300 ML IV SCH ×2 (08:12→20:08)
[2017-09-14] MEDS: DOCUSATE SODIUM 50 MG/SENNA 8.6 MG TAB PO SCH ×2 (08:13→20:09)
[2017-09-14] MEDS: LACTULOSE SYRUP 20 GM/30 ML CUP PO SCH (08:13)
[2017-09-14] MEDS: PANTOPRAZOLE SODIUM 40 MG VIAL IV PUSH SCH (08:13)
[2017-09-14] MEDS: BISACODYL 10 MG SUPP RECTAL SCH (08:13)
[2017-09-14] MEDS: SODIUM CHLORIDE 0.9% FLUSH 10 ML FLUSH IV FLUSH SCH ×2 (08:13→20:09)
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
[2017-09-15] VITALS (15 sets, daily range): BP systolic 96–126; BP diastolic 54–81; PULSE 84–112; RESP 13–19; TEMP 96.3–100; O2SAT 90–97
[2017-09-15] MEDS: CHLORHEXIDINE GLUCONATE 2 % 1 PACK (2 CLOTHS) TOP SCH (01:31)
[2017-09-15] MEDS: EPOPROSTENOL NEB SOLUTION 50 NG/KG/MIN 100 ML NEB SCH ×10 (01:32→23:59)
[2017-09-15] MEDS: ENOXAPARIN SODIUM 30 MG/0.3 ML SYRINGE SQ SCH ×2 (02:23→15:00)
[2017-09-15] MEDS: PROPOFOL 1000 MG/100 ML INJ 100 ML IV PRN ×6 (03:15→22:40)
[2017-09-15] MEDS: MAGNESIUM HYDROXIDE SUSP 30 ML CUP PO SCH ×2 (05:00→17:00)
[2017-09-15] MEDS: ARTIFICIAL TEARS OPTH SOLN 15 ML BTL EACH EYE SCH ×3 (05:47→22:39)
[2017-09-15 05:58] LABS: AUTOMATED NEUTROPHIL # 7.2 TH/MM3 (1.8-7.7); BASOPHIL # 0.1 TH/MM3 (0-0.2); BASOPHIL % 0.9 % (0.0-2.0); EOSINOPHIL % 9.6 % (0.0-4.0); HEMATOCRIT 27.7 % (39.0-51.0); LYMPH % 13.5 % (9.0-44.0); LYMPHOCYTE # 1.4 TH/MM3 (1.0-4.8); MEAN CELL VOLUME 88.9 FL (80.0-100.0); MEAN CORPUSCULAR HEMOGLOBIN 28.9 PG (27.0-34.0); MEAN CORPUSCULAR HGB CONC 32.6 % (32.0-36.0); MEAN PLATELET VOLUME 9.7 FL (7.0-11.0); MONO % 7.7 % (0.0-8.0); MONOCYTE # 0.8 TH/MM3 (0-0.9); NEUT % 68.3 % (16.0-70.0); PLATELET COUNT 780 TH/MM3 (150-450); RED BLOOD COUNT 3.12 MIL/MM3 (4.50-5.90); RED CELL DISTRIBUTION WIDTH 13.6 % (11.6-17.2); WHITE BLOOD COUNT 10.5 TH/MM3 (4.0-11.0)
[2017-09-15] MEDS: MIDAZOLAM 100 MG/100 ML INJ 100 ML IV PRN (06:06)
--- NOTE | 2017-09-15 06:18 | RADRPT ---
EXAM DATE/TIME: 09/15/2017 04:13 [place] COMPARISON: CHEST SINGLE AP, September 14, 2017, 4:42. INDICATIONS : Short of breath, evalute pneumothorax MEDICAL HISTORY : pneumothorax SURGICAL HISTORY : chest tube ENCOUNTER: Subsequent ACUITY: 1 week PAIN SCORE: Non-responsive. LOCATION: Bilateral chest FINDINGS: Endotracheal tube, nasogastric tube and right central line and right thoracostomy tubes are stable in position. There is persistent mild atelectasis and scarring in the right lung base. Aeration on the left continues to improve with decreasing confluence of perihilar and basilar infiltrates. Cardiac co ntour is grossly unchanged. CONCLUSION: Continued improvement in aeration. Gray Jimenez MD on September 15, 2017 at 6:15 Board Certified Radiologist. This report was verified electronically.
[2017-09-15 06:22] LABS: BICARBONATE 31.5 MEQ/L (21.0-32.0); CALCIUM 8.1 MG/DL (8.5-10.1); CREATININE 0.81 MG/DL (0.60-1.30)
--- NOTE | 2017-09-15 07:09 | PD.ORT.PN ---
Subjective Subjective Remarks POD 13 s/p ORIF bilateral wrists s/p right elbow fx s/p right clavicle fx intubated/sedated no changes Objective Vitals Vital Signs Date Time Temp Pulse Resp B/P (MAP) Pulse Ox O2 Delivery O2 Flow Rate FiO2 09/15/17 06:00 108 09/15/17 04:00 100.0 112 14 121/81 (94) 95 09/15/17 04:00 40 09/15/17 04:00 112 09/15/17 02:00 102 09/15/17 00:00 98.9 100 19 112/67 (82) 90 09/15/17 00:00 60 09/15/17 00:00 100 09/14/17 22:00 92 09/14/17 20:00 98.8 90 18 104/64 (77) 93 09/14/17 20:00 60 09/14/17 20:00 90 09/14/17 19:30 92 60 09/14/17 18:00 90 09/14/17 16:07 93 60 09/14/17 16:00 99.0 85 16 105/66 (79) 92 09/14/17 16:00 70 09/14/17 16:00 85 09/14/17 14:00 80 09/14/17 13:56 94 60 09/14/17 12:00 70 09/14/17 12:00 97.9 82 16 108/60 (76) 94 09/14/17 12:00 82 09/14/17 11:44 94 60 09/14/17 10:00 76 09/14/17 09:29 93 60 09/14/17 08:00 77 09/14/17 08:00 98.1 80 16 98/54 (69) 96 09/14/17 08:00 70 I/O 09/14/17 09/14/17 09/14/17 09/15/17 09/15/17 09/15/17 07:00 15:00 23:00 07:00 15:00 23:00 Intake Total 1231 ml 600 ml 1601 ml 1453 ml Output Total 600 ml 1800.0 ml 810 ml Balance 631 ml 600 ml -199.0 ml 643 ml Intake IV Total 550 ml 600 ml 850 ml 750 ml Tube Feeding 561 ml 751 ml 673 ml Tube Irrigant 30 ml Other 120 ml Output Urine Total 600 ml 1700 ml 800 ml Tube Feeding Residual Discard 100.0 ml Chest Tube Drainage Total 0 ml 10 ml # Bowel Movements 0 0 2 Result Diagram: 09/15/17 0500 09/15/17 0500 Imaging Last 24 hours Impressions Chest X-Ray 08/31/17 0000 Signed Impressions: Service Date/Time: Thursday, August 31, 2017 03:25 - CONCLUSION: 1. Multiple right-sided rib fractures with pulmonary parenchymal contusion. Developing bibasilar atelectatic changes. 2. Right-sided thoracostomy tube without pneumothorax. Appropriate positioning of the endotracheal and nasogastric tubes. 3. Right clavicular fracture. Adan Chambers MD Pelvis X-Ray 08/30/17 1521 Signed Impressions: Service Date/Time: Wednesday, August 30, 2017 15:21 - CONCLUSION: 1. Negative examination. Lucius Trevino MD Head CT 08/30/17 1521 Signed Impressions: Service Date/Time: Wednesday, August 30, 2017 16:06 - CONCLUSION: 1. No acute intracranial abnormality is identified. Lucius Trevino MD Chest X-Ray 08/30/17 1521 Signed Impressions: Service Date/Time: Wednesday, August 30, 2017 15:21 - CONCLUSION: 1. Multiple right rib fractures and right clavicle fracture with questionable right lung contusion and pneumothorax. Austin Jarquin MD Chest CT 08/30/17 1521 Signed Impressions: Service Date/Time: Wednesday, August 30, 2017 16:20 - CONCLUSION: 1. Fracture of the right third through ninth ribs. Some of the ribs are fractured in 2 [address]. 2. Small right-sided pneumothorax with parenchymal contusion. There is a right-sided chest tube already in good position. 3. Endotracheal tube in satisfactory position. 4. The aorta and great vessels appear intact. Lucius Trevino MD Cervical Spine CT 08/30/17 1521 Signed Impressions: Service Date/Time: Wednesday, August 30, 2017 16:09 - CONCLUSION: 1. Negative for fracture or subluxation of the cervical spine. No canal stenosis. 2. Endotracheal tube and right chest tube present. Right rib fractures. Austin Jarquin MD Abdomen/Pelvis CT 08/30/17 1521 Signed Impressions: Service Date/Time: Wednesday, August 30, 2017 16:20 - CONCLUSION: Numerous lower right rib fractures with small right pneumothorax and hemothorax and dependent consolidation in both lungs. Right chest tube present. No solid visceral injury identified within the abdomen or pelvis. No free air or free fluid. Austin Jarquin MD Objective Remarks RUE: +exfix of elbow and wrist. pin sites clean. good cap refill of fingers. + bruising and swelling of shoulder LUE: + Long arm splint. intact. +cap refill Assessment & Plan Assessment and Plan 1) Open fracture dislocation right elbow 2) Fracture right distal radius, intra-articular, comminuted. 3) Fracture left distal radius with distal radial ulnar joint dislocation ( Galeazzi variant) 4) Right Clavicle Fx POD 13 : ORIF with revision of exfix of right distal radius fx Revision of exfix right elbow ORIF of left distal radius fx with pinning of DRUJ PLAN: NWB BUE pin care to right arm BID maintain splint on left arm at all times once patient stable and is able to be positioned laterally for surgery of the right elbow we will proceed patient lung status is declining will await trauma go ahead for clearance to proceed with ORIF of right elbow patient still not stable enough for OR will await medical clearance Marc Rivero/Wool Sampler PA Sep 15, 2017 07:09
[2017-09-15 07:49] LABS: ALBUMIN 1.7 GM/DL (3.4-5.0); DIRECT BILIRUBIN ADULT 0.1 MG/DL (0.0-0.2); INDIRECT BILIRUBIN 0.1 MG/DL (0.0-0.8); MAGNESIUM 2.5 MG/DL (1.5-2.5); PHOSPHORUS 2.9 MG/DL (2.5-4.9); TOTAL BILIRUBIN ADULT 0.2 MG/DL (0.2-1.0); TOTAL PROTEIN 6.5 GM/DL (6.4-8.2)
[2017-09-15 07:55] LABS: BANDS 4 % (0-6); BASOPHILS 2 % (0-2); LYMPHOCYTES 9 % (9-44); METAMYELOCYTES 4 % (0-1); MONOCYTES 6 % (0-8); MYELOCYTES 1 % (0-0); NEUTROPHIL # MANUAL DIFF 7.9 TH/MM3 (1.8-7.7); POLYS (SEG NEUTROPHILS) 66 % (16-70)
[2017-09-15] MEDS: CHLORHEXIDINE 0.12% (ORAL KIT) 15 ML CUP MT SCH ×2 (08:00→19:43)
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
[2017-09-15] MEDS ORDERED: ALBUMIN 25% INJ 50 ML IV ONE ×2 (08:30→18:30)
[2017-09-15] MEDS ORDERED: FUROSEMIDE 20 MG/2 ML VIAL IV PUSH ONE ×2 (08:30→19:00)
[2017-09-15] MEDS: LINEZOLID 600 MG PREMIX 300 ML IV SCH ×2 (08:39→19:42)
[2017-09-15] MEDS: PANTOPRAZOLE SODIUM 40 MG VIAL IV PUSH SCH (08:40)
[2017-09-15] MEDS: BISACODYL 10 MG SUPP RECTAL SCH (08:40)
[2017-09-15] MEDS: LACTULOSE SYRUP 20 GM/30 ML CUP PO SCH (08:40)
[2017-09-15] MEDS: DOCUSATE SODIUM 50 MG/SENNA 8.6 MG TAB PO SCH ×2 (08:40→19:38)
[2017-09-15] MEDS: SODIUM CHLORIDE 0.9% FLUSH 10 ML FLUSH IV FLUSH SCH ×2 (11:31→19:43)
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
[2017-09-15] MEDS: fentaNYL DRIP 250 ML IV PRN (19:42)
[2017-09-15] MEDS: RESP: ALBUTEROL 2.5 MG/IPRATROPIUM 0.5 MG NEB (SCH) NEB (21:26)
[2017-09-16] VITALS (16 sets, daily range): BP systolic 104–115; BP diastolic 53–65; PULSE 82–116; RESP 8–14; TEMP 99.2–101.6; O2SAT 92–98
[2017-09-16] MEDS: PROPOFOL 1000 MG/100 ML INJ 100 ML IV PRN ×5 (02:08→20:40)
[2017-09-16] MEDS: ENOXAPARIN SODIUM 30 MG/0.3 ML SYRINGE SQ SCH ×2 (02:08→15:00)
[2017-09-16] MEDS: MIDAZOLAM 100 MG/100 ML INJ 100 ML IV PRN ×2 (03:06→13:55)
[2017-09-16] MEDS: CHLORHEXIDINE GLUCONATE 2 % 1 PACK (2 CLOTHS) TOP SCH (03:07)
[2017-09-16] MEDS: MAGNESIUM HYDROXIDE SUSP 30 ML CUP PO SCH ×2 (05:00→16:24)
[2017-09-16] MEDS: RESP: ALBUTEROL 2.5 MG/IPRATROPIUM 0.5 MG NEB (SCH) NEB ×4 (05:08→20:04)
[2017-09-16] MEDS: ARTIFICIAL TEARS OPTH SOLN 15 ML BTL EACH EYE SCH ×3 (05:24→21:26)
[2017-09-16] MEDS: fentaNYL DRIP 250 ML IV PRN ×4 (05:24→20:40)
[2017-09-16 05:38] LABS: AUTOMATED NEUTROPHIL # 6.5 TH/MM3 (1.8-7.7); BASOPHIL # 0.1 TH/MM3 (0-0.2); BASOPHIL % 0.8 % (0.0-2.0); EOSINOPHIL # 1.2 TH/MM3 (0-0.4); EOSINOPHIL % 10.7 % (0.0-4.0); HEMATOCRIT 25.5 % (39.0-51.0); HEMOGLOBIN 8.6 GM/DL (13.0-17.0); LYMPH % 19.3 % (9.0-44.0); LYMPHOCYTE # 2.1 TH/MM3 (1.0-4.8); MEAN CELL VOLUME 88.9 FL (80.0-100.0); MEAN CORPUSCULAR HEMOGLOBIN 29.9 PG (27.0-34.0); MEAN CORPUSCULAR HGB CONC 33.6 % (32.0-36.0); MEAN PLATELET VOLUME 9.3 FL (7.0-11.0); MONO % 9.7 % (0.0-8.0); MONOCYTE # 1.1 TH/MM3 (0-0.9); NEUT % 59.5 % (16.0-70.0); PLATELET COUNT 729 TH/MM3 (150-450); RED BLOOD COUNT 2.87 MIL/MM3 (4.50-5.90); RED CELL DISTRIBUTION WIDTH 13.9 % (11.6-17.2); WHITE BLOOD COUNT 10.9 TH/MM3 (4.0-11.0)
--- NOTE | 2017-09-16 05:41 | RADRPT ---
EXAM DATE/TIME: 09/16/2017 04:31 [facility] COMPARISON: CHEST SINGLE AP, September 15, 2017, 4:13. INDICATIONS : Respiratory distress. MEDICAL HISTORY : Pneumothorax. SURGICAL HISTORY : Chest tube. ENCOUNTER: Subsequent ACUITY: 1 week PAIN SCORE: Non-responsive. LOCATION: Bilateral chest FINDINGS: Endotracheal tube, nasogastric tube and right central line are stable. Right thoracostomy tubes are s table. Slight basilar pleural-parenchymal opacities persist unchanged. Cardiac contour stable. CONCLUSION: No significant change Gray Jimenez MD on September 16, 2017 at 5:38 Board Certified Radiologist. This report was verified electronically.
[2017-09-16 06:09] LABS: ALBUMIN 2.1 GM/DL (3.4-5.0); ALT (GPT) 84 U/L (12-78); AST (GOT) 60 U/L (15-37); BICARBONATE 32.8 MEQ/L (21.0-32.0); BLOOD UREA NITROGEN 23 MG/DL (7-18); CALCIUM 8.4 MG/DL (8.5-10.1); CHLORIDE 103 MEQ/L (98-107); CREATININE 0.84 MG/DL (0.60-1.30); GLOMERULAR FILTRATION RATE 79 ML/MIN (>89); GLUCOSE,RANDOM 91 MG/DL (74-106); MAGNESIUM 2.5 MG/DL (1.5-2.5); SODIUM (NA) 143 MEQ/L (136-145)
[2017-09-16 06:16] LABS: ALKALINE PHOSPHATASE 186 U/L (45-117); TOTAL BILIRUBIN ADULT 0.3 MG/DL (0.2-1.0); TOTAL PROTEIN 6.6 GM/DL (6.4-8.2)
--- NOTE | 2017-09-16 07:01 | RADRPT ---
EXAM DATE/TIME: 09/16/2017 06:39 [facility] COMPARISON: WRIST LEFT ONE VIEW, September 02, 2017, 0:00. INDICATIONS : Fracture. MEDICAL HISTORY : None. SURGICAL HISTORY : None. ENCOUNTER: Subsequent ACUITY: 1 week PAIN SCORE: 0/10 LOCATION: Left forearm FINDINGS: Bony detail is obscured by cast material. Plate fixation of the distal left radius appears stable and intact. CONCLUSION: Stable fixation appearance of the distal left radius Gray Jimenez MD on September 16, 2017 at 6:57 Board Certified Radiologist. This report was verified electronically.
--- NOTE | 2017-09-16 07:02 | RADRPT ---
EXAM DATE/TIME: 09/16/2017 06:45 [facility] COMPARISON: WRIST RIGHT LIMITED(AP & LAT), September 02, 2017, 13:27. INDICATIONS : Fracture. MEDICAL HISTORY : None. SURGICAL HISTORY : None. ENCOUNTER: Subsequent ACUITY: 1 week PAIN SCORE: 0/10 LOCATION: Right forearm FINDINGS: External fixator is present crossing a comminuted elbow fracture. Plate fixation of a distal radial f racture appears grossly stable. Skin deny remain. CONCLUSION: Comminuted elbow fracture in external fixator. Stable hardware repair of distal right radius Gray Jimenez MD on September 16, 2017 at 6:59 Board Certified Radiologist. This report was verified electronically.
[2017-09-16] MEDS: LINEZOLID 600 MG PREMIX 300 ML IV SCH ×2 (08:00→21:26)
[2017-09-16] MEDS: CHLORHEXIDINE 0.12% (ORAL KIT) 15 ML CUP MT SCH ×2 (08:00→21:26)
[2017-09-16] MEDS: EPOPROSTENOL NEB SOLUTION 50 NG/KG/MIN 100 ML NEB SCH ×4 (08:00→12:00)
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
[2017-09-16 08:22] LABS: BANDS 3 % (0-6); LYMPHOCYTES 18 % (9-44); METAMYELOCYTES 4 % (0-1); MONOCYTES 8 % (0-8); MYELOCYTES 4 % (0-0); NEUTROPHIL # MANUAL DIFF 6.4 TH/MM3 (1.8-7.7); POLYS (SEG NEUTROPHILS) 47 % (16-70); PROMYELOCYTES 1 % (0-0)
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
[2017-09-16] MEDS: BISACODYL 10 MG SUPP RECTAL SCH (09:00)
[2017-09-16] MEDS: PANTOPRAZOLE SODIUM 40 MG VIAL IV PUSH SCH (09:00)
[2017-09-16] MEDS: DOCUSATE SODIUM 50 MG/SENNA 8.6 MG TAB PO SCH ×2 (09:00→21:26)
[2017-09-16] MEDS: SODIUM CHLORIDE 0.9% FLUSH 10 ML FLUSH IV FLUSH SCH ×2 (09:00→21:26)
[2017-09-16] MEDS: LACTULOSE SYRUP 20 GM/30 ML CUP PO SCH (09:00)
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
[2017-09-16] MEDS ORDERED: FUROSEMIDE 40 MG/4 ML VIAL IV PUSH ONE (14:45)
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
[2017-09-17] VITALS (20 sets, daily range): BP systolic 100–113; BP diastolic 55–70; PULSE 98–118; RESP 8–17; TEMP 98.6–101; O2SAT 92–99
[2017-09-17] MEDS: PROPOFOL 1000 MG/100 ML INJ 100 ML IV PRN ×7 (00:29→23:07)
[2017-09-17] MEDS: EPOPROSTENOL NEB SOLUTION 50 NG/KG/MIN 100 ML NEB SCH ×6 (03:00→23:06)
[2017-09-17] MEDS: CHLORHEXIDINE GLUCONATE 2 % 1 PACK (2 CLOTHS) TOP SCH ×2 (03:00→19:32)
[2017-09-17] MEDS: ENOXAPARIN SODIUM 30 MG/0.3 ML SYRINGE SQ SCH ×2 (03:33→14:43)
[2017-09-17] MEDS: MAGNESIUM HYDROXIDE SUSP 30 ML CUP PO SCH ×3 (03:34→19:33)
[2017-09-17] MEDS: RESP: ALBUTEROL 2.5 MG/IPRATROPIUM 0.5 MG NEB (SCH) NEB ×4 (03:57→20:12)
[2017-09-17] MEDS: fentaNYL DRIP 250 ML IV PRN ×2 (04:15→16:35)
[2017-09-17] MEDS: ARTIFICIAL TEARS OPTH SOLN 15 ML BTL EACH EYE SCH ×3 (05:07→22:00)
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
--- NOTE | 2017-09-17 07:20 | PD.ORT.PN ---
Subjective Subjective Remarks POD 15 s/p ORIF bilateral wrists s/p right elbow fx s/p right clavicle fx intubated/sedated no changes Objective Vitals Vital Signs Date Time Temp Pulse Resp B/P (MAP) Pulse Ox O2 Delivery O2 Flow Rate FiO2 09/17/17 06:00 108 09/17/17 04:00 116 09/17/17 04:00 50 09/17/17 04:00 100.5 116 14 103/64 (77) 93 09/17/17 02:00 110 09/17/17 00:37 93 50 09/17/17 00:00 108 09/17/17 00:00 99.7 108 8 111/55 (73) 93 09/17/17 00:00 50 09/16/17 22:00 108 09/16/17 20:05 93 50 09/16/17 20:00 106 09/16/17 20:00 50 09/16/17 20:00 99.3 106 12 110/65 (80) 93 09/16/17 18:00 108 09/16/17 16:00 93 09/16/17 16:00 40 09/16/17 16:00 99.5 93 8 105/64 (78) 98 09/16/17 15:57 98 50 09/16/17 14:00 98 09/16/17 12:00 93 09/16/17 12:00 99.2 93 8 104/60 (75) 96 09/16/17 12:00 40 09/16/17 10:00 100 09/16/17 08:00 101.6 104 14 104/62 (76) 94 09/16/17 08:00 40 09/16/17 08:00 104 I/O 09/16/17 09/16/17 09/16/17 09/17/17 09/17/17 09/17/17 07:00 15:00 23:00 07:00 15:00 23:00 Intake Total 1195 ml 675 ml 1750 ml 1411 ml Output Total 1250.0 ml 40.0 ml 1000 ml 1400 ml Balance -55.0 ml 635.0 ml 750 ml 11 ml Intake IV Total 550 ml 675 ml 1000 ml 550 ml Tube Feeding 645 ml 750 ml 831 ml Tube Irrigant 0 ml 30 ml Output Urine Total 1200 ml 1000 ml 1400 ml Tube Feeding Residual Discard 50.0 ml 40.0 ml 0 ml Chest Tube Drainage Total 0 ml 0 ml 0 ml # Bowel Movements 1 2 1 Result Diagram: 09/16/17 0500 09/16/17 0500 Imaging Last 24 hours Impressions Chest X-Ray 08/31/17 0000 Signed Impressions: Service Date/Time: Thursday, August 31, 2017 03:25 - CONCLUSION: 1. Multiple right-sided rib fractures with pulmonary parenchymal contusion. Developing bibasilar atelectatic changes. 2. Right-sided thoracostomy tube without pneumothorax. Appropriate positioning of the endotracheal and nasogastric tubes. 3. Right clavicular fracture. Adan Chambers MD Pelvis X-Ray 08/30/17 1521 Signed Impressions: Service Date/Time: Wednesday, August 30, 2017 15:21 - CONCLUSION: 1. Negative examination. Lucius Trevino MD Head CT 08/30/17 1521 Signed Impressions: Service Date/Time: Wednesday, August 30, 2017 16:06 - CONCLUSION: 1. No acute intracranial abnormality is identified. Lucius Trevino MD Chest X-Ray 08/30/17 1521 Signed Impressions: Service Date/Time: Wednesday, August 30, 2017 15:21 - CONCLUSION: 1. Multiple right rib fractures and right clavicle fracture with questionable right lung contusion and pneumothorax. Austin Jarquin MD Chest CT 08/30/17 1521 Signed Impressions: Service Date/Time: Wednesday, August 30, 2017 16:20 - CONCLUSION: 1. Fracture of the right third through ninth ribs. Some of the ribs are fractured in 2 [address]. 2. Small right-sided pneumothorax with parenchymal contusion. There is a right-sided chest tube already in good position. 3. Endotracheal tube in satisfactory position. 4. The aorta and great vessels appear intact. Lucius Trevino MD Cervical Spine CT 08/30/17 1521 Signed Impressions: Service Date/Time: Wednesday, August 30, 2017 16:09 - CONCLUSION: 1. Negative for fracture or subluxation of the cervical spine. No canal stenosis. 2. Endotracheal tube and right chest tube present. Right rib fractures. Austin Jarquin MD Abdomen/Pelvis CT 08/30/17 1521 Signed Impressions: Service Date/Time: Wednesday, August 30, 2017 16:20 - CONCLUSION: Numerous lower right rib fractures with small right pneumothorax and hemothorax and dependent consolidation in both lungs. Right chest tube present. No solid visceral injury identified within the abdomen or pelvis. No free air or free fluid. Austin Jarquin MD Objective Remarks RUE: +exfix of elbow and wrist. pin sites clean. good cap refill of fingers. + bruising and swelling of shoulder LUE: + Long arm splint. intact. +cap refill Assessment & Plan Assessment and Plan 1) Open fracture dislocation right elbow 2) Fracture right distal radius, intra-articular, comminuted. 3) Fracture left distal radius with distal radial ulnar joint dislocation ( Galeazzi variant) 4) Right Clavicle Fx POD 15 : ORIF with revision of exfix of right distal radius fx Revision of exfix right elbow ORIF of left distal radius fx with pinning of DRUJ PLAN: NWB BUE pin care to right arm BID maintain splint on left arm at all times once patient stable and is able to be positioned laterally for surgery of the right elbow we will proceed patient lung status is declining will await trauma go ahead for clearance to proceed with ORIF of right elbow patient still not stable enough for OR will await medical clearance Marc Rivero/[employer]ist ELKE Sep 17, 2017 07:20
[2017-09-17] MEDS: LINEZOLID 600 MG PREMIX 300 ML IV SCH ×2 (07:59→19:41)
[2017-09-17] MEDS: CHLORHEXIDINE 0.12% (ORAL KIT) 15 ML CUP MT SCH ×2 (07:59→19:41)
[2017-09-17] MEDS: ALBUMIN 25% INJ 100 ML IV SCH ×3 (07:59→22:36)
[2017-09-17] MEDS: DOCUSATE SODIUM 50 MG/SENNA 8.6 MG TAB PO SCH ×2 (08:00→19:31)
[2017-09-17] MEDS: FUROSEMIDE 40 MG/4 ML VIAL IV PUSH SCH ×3 (08:00→22:36)
[2017-09-17] MEDS: PANTOPRAZOLE SODIUM 40 MG VIAL IV PUSH SCH (08:00)
[2017-09-17] MEDS: SODIUM CHLORIDE 0.9% FLUSH 10 ML FLUSH IV FLUSH SCH ×2 (08:00→19:41)
[2017-09-17] MEDS: BISACODYL 10 MG SUPP RECTAL SCH (08:01)
[2017-09-17] MEDS: LACTULOSE SYRUP 20 GM/30 ML CUP PO SCH (08:01)
[2017-09-17] MEDS: SILDENAFIL CITRATE 20 MG TAB PO SCH ×2 (11:08→18:00)
[2017-09-17] MEDS: ACETAMINOPHEN 650 MG/20.3 ML UDC NG PRN (12:57)
[2017-09-17] MEDS ORDERED: MIDAZOLAM HCL 5 MG/ML VIAL (1 ML) ONE (16:45)
[2017-09-17] MEDS ORDERED: ROCURONIUM INJ 50 MG/5 ML VIAL ONE (16:46)
[2017-09-17] MEDS ORDERED: ROCURONIUM INJ 100 MG/10 ML VIAL IV ONE (17:00)
[2017-09-17] MEDS ORDERED: MIDAZOLAM HCL 5 MG/ML VIAL (1 ML) IV ONE (17:00)
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
--- NOTE | 2017-09-17 18:02 | PD.PROCEDR ---
Procedure Note Procedure DX: Hypoxemic respiratory failure OP: 1. Therapeutic flexible bronchoscopy 2. Percutaneous tracheostomy Procedure: Timeout performed proper patient identification. Usual ICU monitoring devices in place including mechanical ventilation and oral tracheal intubation. Flexible bronchoscope delivered through a sealed side-port and the vent circuit. The tracheobronchial tree was inspected. The mucosa was normal. There was no sputum. The branching pattern of the bronchial segments was normal. At this juncture the flexible scope and tracheal tube were withdrawn to the level of the cricoid cartilage. Suitable anesthetic was delivered intravenously and documented under separate note. The suprasternal notch was painted with Chloraseptic and draped sterilely. The suprasternal notch was infiltrated with 1% Xylocaine with epinephrine. This was continued down to the level of the trachea. 18-gauge needle was delivered underneath the second tracheal ring and a floppy wire was delivered under bronchoscopic visualization down into the tracheobronchial tree. Serial dilators were passed and the #8 Shiley tracheostomy tube was passed over a wire into the tracheobronchial tree without difficulty. Balloon was inflated and the bronchoscope was delivered into the new tracheostomy tube to confirm presence in the mid trachea and suitably above the david. Inner cannula was placed in the new tracheostomy tube and the ventilator circuit was reconnected. Good chest wall motion was immediately noticed, capnography confirmed return of suitable carbon dioxide and ventilator demonstrated suitable tidal volume return. There is no evidence of subcutaneous emphysema. Peak airway pressures were less than 30 cm water. The flange of the tracheostomy tube was sutured to the skin using interrupted 2- 0 Prolene sutures. Tracheostomy ties were placed around the neck for further support. Chest x-ray confirmed position of the tracheostomy tube. Oxygen saturation was maintained greater than 95% throughout the procedure. Pablito Cazares MD Sep 17, 2017 18:02
--- NOTE | 2017-09-17 18:04 | RADRPT ---
EXAM DATE/TIME: 09/17/2017 17:37 [facility] COMPARISON: CHEST SINGLE AP, September 16, 2017, 4:31. INDICATIONS : Post tracheostomy. MEDICAL HISTORY : None. SURGICAL HISTORY : None. ENCOUNTER: Initial ACUITY: 1 month PAIN SCORE: Non-responsive. LOCATION: Bilateral chest FINDINGS: The left side of the chest is not included in the [id number] of the exam. Tracheostomy has been p laced and the tip is in good position. There is some indistinctness of the bronchopulmonary markings in the perihilar region bilaterally. No focal consolidation seen. Right internal jugular catheter tip at the caval atrial junction. Large bore right chest tube and small bore chest catheter stable i n position. No evidence of pneumothorax on either side. Multiple right rib fractures. Blunting of the right costophrenic angle suggests small pleural effusion. CONCLUSION: Tracheostomy in good position. No focal areas of consolidation seen. Min Aj MD on September 17, 2017 at 17:57 Board Certified Radiologist. This report was verified electronically.
[2017-09-17 21:45] LABS: MAGNESIUM 2.3 MG/DL (1.5-2.5); PHOSPHORUS 4.3 MG/DL (2.5-4.9)
--- NOTE | 2017-09-17 22:18 | RADRPT ---
EXAM DATE/TIME: 09/17/2017 21:50 [facility] COMPARISON: No previous studies available for comparison. INDICATIONS : Confirm NG tube placement. MEDICAL HISTORY : Pneumothorax. SURGICAL HISTORY : None. ENCOUNTER: Initial ACUITY: 1 day PAIN SCORE: Non-responsive. LOCATION: Bilateral chest FINDINGS: Given the fundus of the stomach. Minimal bibasilar parenchymal changes. CONCLUSION: 1. Tube in fundus of stomach. Austin Trevino MD FACR on September 17, 2017 at 22:15 Board Certified Radiologist. This report was verified electronically.
[2017-09-18] VITALS (18 sets, daily range): BP systolic 106–166; BP diastolic 60–84; PULSE 89–121; RESP 14–23; TEMP 99.2–100.3; O2SAT 94–96
--- NOTE | 2017-09-18 01:12 | RADRPT ---
EXAM DATE/TIME: 09/18/2017 00:35 [facility] COMPARISON: No previous studies available for comparison. INDICATIONS : Replacement of dobhoff feeding tube. MEDICAL HISTORY : None. SURGICAL HISTORY : None. ENCOUNTER: Subsequent ACUITY: 2 weeks PAIN SCORE: Non-responsive. LOCATION: Left upper quadrant FINDINGS: Weighted feeding to overlies the stomach. Intestinal gas pattern is nonspecific and benign. CONCLUSION: Dobbhoff tube overlies the stomach Gray Jimenez MD on September 18, 2017 at 1:09 Board Certified Radiologist. This report was verified electronically.
[2017-09-18] MEDS: ENOXAPARIN SODIUM 30 MG/0.3 ML SYRINGE SQ SCH ×2 (03:10→15:55)
[2017-09-18] MEDS: SILDENAFIL CITRATE 20 MG TAB PO SCH ×3 (03:10→17:51)
[2017-09-18] MEDS: ACETAMINOPHEN 650 MG/20.3 ML UDC NG PRN (03:11)
[2017-09-18] MEDS: fentaNYL DRIP 250 ML IV PRN (03:16)
[2017-09-18] MEDS: PROPOFOL 1000 MG/100 ML INJ 100 ML IV PRN (04:13)
[2017-09-18] MEDS: RESP: ALBUTEROL 2.5 MG/IPRATROPIUM 0.5 MG NEB (SCH) NEB ×4 (04:27→21:04)
[2017-09-18 04:37] LABS: HEMATOCRIT 21.1 % (39.0-51.0); MEAN CELL VOLUME 89.2 FL (80.0-100.0); MEAN CORPUSCULAR HEMOGLOBIN 29.7 PG (27.0-34.0); MEAN CORPUSCULAR HGB CONC 33.3 % (32.0-36.0); MEAN PLATELET VOLUME 8.9 FL (7.0-11.0); PLATELET COUNT 578 TH/MM3 (150-450); RED BLOOD COUNT 2.36 MIL/MM3 (4.50-5.90); RED CELL DISTRIBUTION WIDTH 13.9 % (11.6-17.2); WHITE BLOOD COUNT 9.7 TH/MM3 (4.0-11.0)
[2017-09-18 05:06] LABS: BICARBONATE 28.8 MEQ/L (21.0-32.0); CALCIUM 8.2 MG/DL (8.5-10.1); CREATININE 0.99 MG/DL (0.60-1.30)
[2017-09-18] MEDS: ARTIFICIAL TEARS OPTH SOLN 15 ML BTL EACH EYE SCH ×3 (06:00→21:20)
[2017-09-18] MEDS: ALBUMIN 25% INJ 100 ML IV SCH (06:02)
[2017-09-18] MEDS: ICU - POTASSIUM CHLORIDE/AQUEOUS SOLN 40 MEQ/100 ML IVPB IV PRN (06:02)
[2017-09-18] MEDS: FUROSEMIDE 40 MG/4 ML VIAL IV PUSH SCH ×3 (06:02→21:51)
[2017-09-18] MEDS ORDERED: METHADONE 10 MG/ML VIAL IV PUSH ONE (06:15)
[2017-09-18] MEDS ORDERED: METOLAZONE 2.5 MG TAB PO ONE (06:20)
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
--- NOTE | 2017-09-18 07:08 | PD.ORT.PN ---
Subjective Subjective Remarks Trached Slow improvement Objective Vitals Vital Signs Date Time Temp Pulse Resp B/P (MAP) Pulse Ox O2 Delivery O2 Flow Rate FiO2 09/18/17 04:28 95 50 09/18/17 04:00 50 09/18/17 04:00 100.3 108 14 118/60 (79) 95 09/18/17 04:00 108 09/18/17 02:00 94 09/18/17 01:05 95 50 09/18/17 00:00 100.1 100 14 108/70 (83) 96 09/18/17 00:00 50 09/18/17 00:00 100 09/17/17 22:00 102 09/17/17 20:12 96 50 09/17/17 20:00 101.0 98 14 110/70 (83) 99 09/17/17 20:00 50 09/17/17 20:00 98 09/17/17 18:00 109 09/17/17 18:00 50 09/17/17 17:56 99 50 09/17/17 17:00 98 09/17/17 16:00 50 09/17/17 16:00 99.8 114 12 102/64 (77) 95 09/17/17 16:00 114 09/17/17 14:34 95 50 09/17/17 14:00 104 09/17/17 12:00 50 09/17/17 12:00 98.8 118 17 100/56 (71) 92 09/17/17 12:00 118 09/17/17 11:42 93 45 09/17/17 10:00 117 09/17/17 09:08 94 45 09/17/17 08:00 98.6 110 15 113/66 (82) 93 09/17/17 08:00 50 09/17/17 08:00 110 I/O 09/17/17 09/17/17 09/17/17 09/18/17 09/18/17 09/18/17 07:00 15:00 23:00 07:00 15:00 23:00 Intake Total 1411 ml 600 ml 705 ml 190 ml Output Total 1400 ml 2750 ml Balance 11 ml 600 ml -2045 ml 190 ml Intake IV Total 550 ml 600 ml 300 ml 190 ml Tube Feeding 831 ml 255 ml Tube Irrigant 30 ml 150 ml Output Urine Total 1400 ml 2750 ml Chest Tube Drainage Total 0 ml 0 ml # Bowel Movements 1 0 Result Diagram: 09/18/17 0420 09/18/17 0420 Imaging Last 24 hours Impressions Chest X-Ray 08/31/17 0000 Signed Impressions: Service Date/Time: Thursday, August 31, 2017 03:25 - CONCLUSION: 1. Multiple right-sided rib fractures with pulmonary parenchymal contusion. Developing bibasilar atelectatic changes. 2. Right-sided thoracostomy tube without pneumothorax. Appropriate positioning of the endotracheal and nasogastric tubes. 3. Right clavicular fracture. Adan Chambers MD Pelvis X-Ray 08/30/17 152 Signed Impressions: Service Date/Time: Wednesday, August 30, 2017 15:21 - CONCLUSION: 1. Negative examination. Lucius Trevino MD Head CT 08/30/171520 Signed Impressions: Service Date/Time: Wednesday, August 30, 2017 16:06 - CONCLUSION: 1. No acute intracranial abnormality is identified. Lucius Trevino MD Chest X-Ray 08/30/17 152 Signed Impressions: Service Date/Time: Wednesday, August 30, 2017 15:21 - CONCLUSION: 1. Multiple right rib fractures and right clavicle fracture with questionable right lung contusion and pneumothorax. Austin Jarquin MD Chest CT 08/30/17 152 Signed Impressions: Service Date/Time: Wednesday, August 30, 2017 16:20 - CONCLUSION: 1. Fracture of the right third through ninth ribs. Some of the ribs are fractured in 2 places. 2. Small right-sided pneumothorax with parenchymal contusion. There is a right-sided chest tube already in good position. 3. Endotracheal tube in satisfactory position. 4. The aorta and great vessels appear intact. Lucius Trevino MD Cervical Spine CT 08/30/17 1521 Signed Impressions: Service Date/Time: Wednesday, August 30, 2017 16:09 - CONCLUSION: 1. Negative for fracture or subluxation of the cervical spine. No canal stenosis. 2. Endotracheal tube and right chest tube present. Right rib fractures. Austin Jarquin MD Abdomen/Pelvis CT 08/30/17 1521 Signed Impressions: Service Date/Time: Wednesday, August 30, 2017 16:20 - CONCLUSION: Numerous lower right rib fractures with small right pneumothorax and hemothorax and dependent consolidation in both lungs. Right chest tube present. No solid visceral injury identified within the abdomen or pelvis. No free air or free fluid. Austin Jarquin MD Objective Remarks RUE: +exfix of elbow and wrist splint. pin sites clean. good cap refill of fingers. +bruising and swelling of shoulder LUE: + Long arm splint. intact. +cap refill Assessment & Plan Assessment and Plan 1) Open fracture dislocation right elbow 2) Fracture right distal radius, intra-articular, comminuted. 3) Fracture left distal radius with distal radial ulnar joint dislocation ( Galeazzi variant) 4) Right Clavicle Fx POD 15 : ORIF with revision of exfix of right distal radius fx Revision of exfix right elbow ORIF of left distal radius fx with pinning of DRUJ PLAN: NWB BUE pin care to right arm BID maintain splint on left arm at all times once patient stable and is able to be positioned laterally for surgery of the right elbow we will proceed patient lung status is slowly improving will anticipate surgery next week for right elbow, will need to be positioned laterally patient still not stable enough for OR will await medical clearance Wilman Barrios Jr. Sep 18, 2017 07:08
[2017-09-18] MEDS: EPOPROSTENOL NEB SOLUTION 50 NG/KG/MIN 100 ML NEB SCH ×6 (08:00→21:51)
[2017-09-18] MEDS: SODIUM CHLORIDE 0.9% FLUSH 10 ML FLUSH IV FLUSH SCH ×2 (08:16→21:00)
[2017-09-18] MEDS: CHLORHEXIDINE 0.12% (ORAL KIT) 15 ML CUP MT SCH ×2 (08:16→20:00)
[2017-09-18] MEDS: LACTULOSE SYRUP 20 GM/30 ML CUP PO SCH (08:16)
[2017-09-18] MEDS: DOCUSATE SODIUM 50 MG/SENNA 8.6 MG TAB PO SCH ×2 (08:16→19:46)
[2017-09-18] MEDS: PANTOPRAZOLE SODIUM 40 MG VIAL IV PUSH SCH (08:16)
[2017-09-18] MEDS: LINEZOLID 600 MG PREMIX 300 ML IV SCH ×2 (08:16→21:19)
[2017-09-18] MEDS: KETAMINE INJ 500 MG in SODIUM CHLORID 0.9% 500 ML INJ 500 ML IV SCH ×2 (08:18→21:22)
[2017-09-18] MEDS: GABAPENTIN 250 MG/5 ML UDC NG SCH ×3 (08:34→17:51)
[2017-09-18] MEDS: BISACODYL 10 MG SUPP RECTAL SCH (09:00)
--- NOTE | 2017-09-18 14:32 | HHI.IDPN ---
Subjective Subjective Remarks is a 48 y/o male involved in a SKILLED NURSING was found at the median-GCS 15,c/ o pain right chest,right wrist,right elbow,left wrist,HD normal,neuro intact- proceeded with ET intubation in for SOB with severe blunt right chest trauma and multi trauma. Head CT showed no acute intracranial abnormality.He was noted to have severe right chest trauma and right chest tube was placed. He sustained multiple fractures including multiple right ribs, left distal radius, right distal radius, open right elbow fracture dislocation, right clavicle fracture, right fifth metacarpal and middle phalangeal fifth digit finger fracture. Summary of procedures in hospital: On 08/30/17 he underwent: Irrigation of right elbow with external fixator placement to the right elbow and right distal radius. On 09/02/17 he underwent revision of external fixation right elbow, open reduction internal fixation right radial shaft, open reduction internal fixation right distal radius intra-articular fracture, open reduction internal fixation left distal radius fracture, open reduction and pinning of left distal radial ulnar joint On 09/04/17 right chest tube was placed. Follow-up head CT 09/04/17 showed:. Infraorbital soft tissue emphysema, likely posttraumatic. No acute intracranial abnormality or significant interval change. Indwelling tubes and caths: 09/02/17: RIJ TLC 08/30/2017: Santos cath in place. Patient developed fevers and new workup sent including sputum cultures. Sputum culture positive for MRSA and ID consulted for MRSA pneumonia. Overnight events reviewed. Notes reviewed. Status post tracheostomy placement, yesterday Low-grade temp overnight 101, now down to 99.3 Central line discontinued No rash Diarrhea present today x [address] clear yellow urine EEG negative. WBC within normal, latest 9.7 Antibiotics Zyvox Lines Line sites with no e.o infection Past Medical History reviewed (Madeline Kennedy) Allergies: Coded Allergies: No Known Allergies (Unverified , 08/30/17) Objective . Vital Signs Date Time Temp Pulse Resp B/P (MAP) Pulse Ox O2 Delivery O2 Flow Rate FiO2 09/18/17 12:00 99.3 110 16 135/71 (92) 95 09/18/17 12:00 50 09/18/17 12:00 116 09/18/17 11:25 94 50 09/18/17 10:00 89 09/18/17 08:20 96 50 09/18/17 08:00 50 09/18/17 08:00 99.5 92 19 106/63 (77) 95 09/18/17 08:00 92 09/18/17 06:00 96 09/18/17 04:28 95 50 09/18/17 04:00 50 09/18/17 04:00 100.3 108 14 118/60 (79) 95 09/18/17 04:00 108 09/18/17 02:00 94 09/18/17 01:05 95 50 09/18/17 00:00 100.1 100 14 108/70 (83) 96 09/18/17 00:00 50 09/18/17 00:00 100 09/17/17 22:00 102 09/17/17 20:12 96 50 09/17/17 20:00 101.0 98 14 110/70 (83) 99 09/17/17 20:00 50 09/17/17 20:00 98 09/17/17 18:00 109 09/17/17 18:00 50 09/17/17 17:56 99 50 09/17/17 17:00 98 09/17/17 16:00 50 09/17/17 16:00 99.8 114 12 102/64 (77) 95 09/17/17 16:00 114 09/17/17 14:34 95 50 . Laboratory Tests Test 09/18/17 04:20 White Blood Count 9.7 TH/MM3 Red Blood Count 2.36 MIL/MM3 Hemoglobin 7.0 GM/DL Hematocrit 21.1 % Mean Corpuscular Volume 89.2 FL Mean Corpuscular Hemoglobin 29.7 PG Mean Corpuscular Hemoglobin Concent 33.3 % Red Cell Distribution Width 13.9 % Platelet Count 578 TH/MM3 Mean Platelet Volume 8.9 FL Laboratory Tests Test 09/17/17 08:15 09/17/17 20:20 09/18/17 04:20 Prealbumin 15 MG/DL Potassium Level 3.5 MEQ/L 3.0 MEQ/L Phosphorus Level 4.3 MG/DL Magnesium Level 2.3 MG/DL Blood Urea Nitrogen 21 MG/DL Creatinine 0.99 MG/DL Random Glucose 130 MG/DL Calcium Level 8.2 MG/DL Sodium Level 140 MEQ/L Chloride Level 102 MEQ/L Carbon Dioxide Level 28.8 MEQ/L Anion Gap 9 MEQ/L Estimat Glomerular Filtration Rate 65 ML/MIN Imaging Last Impressions Chest X-Ray 09/15/17 0600 Signed Impressions: Service Date/Time: Friday, September 15, 2017 04:13 - CONCLUSION: Continued improvement in aeration. Gray Jimenez MD Lower Extremity Ultrasound 09/11/17 0000 Signed Impressions: Service Date/Time: August 17:27 - CONCLUSION: No evidence of DVT. Douglas Baker MD Chest Tube Insertion 09/08/17 0000 Signed Impressions: Service Date/Time: Friday, September 08, 2017 16:41 - CONCLUSION: Uncomplicated chest tube placement as above. Gray Jimenez MD Chest CT 09/05/17 0000 Signed Impressions: Service Date/Time: Tuesday, September 05, 2017 11:48 - CONCLUSION: 1. Persistent moderate size right pneumothorax, slightly decreased in size from yesterday's CT. 2 right chest tubes have been placed in the more lateral and inferior chest tube is posterior to the lung and the more anterior chest tube appears to be within the right upper lobe lung parenchyma. The 2. Extensive chest wall subcutaneous emphysema remains present and increased., right greater than left. 3. There is bilateral lower lung zone volume loss and airspace consolidation, slightly increased from yesterday's exam. 4. Stable multiple right rib fractures and partially visualized right clavicle fracture. Gray Hopkins MD Head CT 09/04/17 0000 Signed Impressions: Service Date/Time: August 11:02 - CONCLUSION: 1. Infraorbital soft tissue emphysema, likely posttraumatic. 2. No acute intracranial abnormality or significant interval change. Michael Boles MD Wrist X-Ray 09/02/17 0000 Signed Impressions: Service Date/Time: Saturday, September 02, 2017 00:00 - CONCLUSION: Good position and alignment on this postoperative study. Douglas Baker MD Elbow X-Ray 09/02/17 0000 Signed Impressions: Service Date/Time: Saturday, September 02, 2017 14:26 - CONCLUSION: External fixator device in place. Douglas Baker MD Pelvis X-Ray 08/30/17 1521 Signed Impressions: Service Date/Time: Wednesday, August 30, 2017 15:21 - CONCLUSION: 1. Negative examination. Lucius Trevino MD Cervical Spine CT 08/30/17 1521 Signed Impressions: Service Date/Time: Wednesday, August 30, 2017 16:09 - CONCLUSION: 1. Negative for fracture or subluxation of the cervical spine. No canal stenosis. 2. Endotracheal tube and right chest tube present. Right rib fractures. Austin Jarquin MD Abdomen/Pelvis CT 08/30/17 1521 Signed Impressions: Service Date/Time: Wednesday, August 30, 2017 16:20 - CONCLUSION: Numerous lower right rib fractures with small right pneumothorax and hemothorax and dependent consolidation in both lungs. Right chest tube present. No solid visceral injury identified within the abdomen or pelvis. No free air or free fluid. Austin Jarquin MD Upper Extremity CT 08/30/17 0000 Signed Impressions: Service Date/Time: Wednesday, August 30, 2017 16:30 - CONCLUSION: 1. Subluxation of the radius anteriorly at the radiocapitellar joint. 2. Severely comminuted proximal ulnar fracture as above portions of the articular surface displaced proximally above the cochlea. Fracture fragments are markedly displaced and rotated. See above discussion. Austin Jarquin MD Radius/Ulna X-Ray 08/30/17 0000 Signed Impressions: Service Date/Time: Wednesday, August 30, 2017 15:21 - CONCLUSION: 1. Displaced fracture involving the distal left radius. 2. Fracture of the ulnar styloid. Lucius Trevino MD Physical Exam GENERAL: This is a well-nourished, well-developed patient, in no apparent CP distress. SKIN: No generalized rashes. Warm and dry. HEAD: Normocephalic. EYES: Pupils equal round and reactive.No scleral icterus. No injection or drainage. ENT: Intubated. Dobbhoff in place connected to tube feeds. NECK: Trachea midline. Supple, nontender, no meningeal signs. CARDIOVASCULAR: Sinus rhythm, no murmurs appreciated. RESPIRATORY: BS decreased in bases. Right chest tube in place to low wall suction GASTROINTESTINAL: Abdomen soft, non-tender, nondistended. : Santos draining clear yellow urine MUSCULOSKELETAL: RUE in external fixator. LUE in dressing. NEUROLOGICAL: Sedated Psych could not be assessed. IV line sites with no e.o infection. 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 Minimal secretions slightly blood- tinged as per respiratory therapist. Polytrauma Right chest tube for Traumatic pneumothorax. Acute respiratory failure failure on vent. Status post tracheostomy placement Likely will also need PEG placement Recs: Continue Zyvox IV (ASP: Vanco LUIS 2 MRSA pneumonia) Central line discontinued MRSA surveillance ordered, follow-up results EEG negative: no seizures. Consider Cdiff PCR, diarrhea present Doppler UE cannot be done as arm in external fixators and dressings up to mid arm. Dw Patients in room, very happy with patient care, thankful for everything. (Madeline Kennedy) Remarks The exam, history, and the medical decision-making described in the above note were completed with the assistance of the mid-level provider. I reviewed and agree with the findings presented. I attest that I had a [id number] encounter with the patient on the same day, and personally performed and documented my assessment and findings in the medical record. Continue Zyvox IV Follow temp curve Repeat CXR in am (Lian Becerril MD) Madeline Kennedy Sep 18, 2017 14:32 Lian Becerril MD Sep 18, 2017 23:05
[2017-09-18] MEDS: MAGNESIUM HYDROXIDE SUSP 30 ML CUP PO SCH (16:26)
[2017-09-18] MEDS: CHLORHEXIDINE GLUCONATE 2 % 1 PACK (2 CLOTHS) TOP SCH (19:46)
[2017-09-19] VITALS (18 sets, daily range): BP systolic 127–149; BP diastolic 60–87; PULSE 88–125; RESP 12–23; TEMP 99.2–101.1; O2SAT 94–97
[2017-09-19] MEDS: SILDENAFIL CITRATE 20 MG TAB PO SCH ×3 (02:52→17:46)
[2017-09-19] MEDS: ENOXAPARIN SODIUM 30 MG/0.3 ML SYRINGE SQ SCH ×2 (02:53→15:10)
[2017-09-19] MEDS: ICU - POTASSIUM CHLORIDE/AQUEOUS SOLN 20 MEQ/100 ML IVPB IV PRN ×8 (03:10→20:08)
[2017-09-19] MEDS: RESP: ALBUTEROL 2.5 MG/IPRATROPIUM 0.5 MG NEB (SCH) NEB ×4 (03:45→20:12)
[2017-09-19] MEDS: MAGNESIUM HYDROXIDE SUSP 30 ML CUP PO SCH ×2 (04:29→16:01)
[2017-09-19 05:21] LABS: HEMATOCRIT 25.2 % (39.0-51.0); HEMOGLOBIN 8.1 GM/DL (13.0-17.0); MEAN CELL VOLUME 87.8 FL (80.0-100.0); MEAN CORPUSCULAR HEMOGLOBIN 28.2 PG (27.0-34.0); MEAN CORPUSCULAR HGB CONC 32.1 % (32.0-36.0); MEAN PLATELET VOLUME 8.8 FL (7.0-11.0); PLATELET COUNT 671 TH/MM3 (150-450); RED BLOOD COUNT 2.87 MIL/MM3 (4.50-5.90); RED CELL DISTRIBUTION WIDTH 13.8 % (11.6-17.2); WHITE BLOOD COUNT 14.4 TH/MM3 (4.0-11.0)
[2017-09-19] MEDS: ARTIFICIAL TEARS OPTH SOLN 15 ML BTL EACH EYE SCH ×3 (05:25→20:09)
[2017-09-19] MEDS: FUROSEMIDE 40 MG/4 ML VIAL IV PUSH SCH ×3 (05:25→22:17)
[2017-09-19 06:46] LABS: CALCIUM 8.7 MG/DL (8.5-10.1); CREATININE 0.91 MG/DL (0.60-1.30)
[2017-09-19] MEDS: EPOPROSTENOL NEB SOLUTION 50 NG/KG/MIN 100 ML NEB SCH ×4 (08:00→15:11)
[2017-09-19] MEDS: GABAPENTIN 250 MG/5 ML UDC NG SCH ×3 (08:12→17:46)
[2017-09-19] MEDS: CHLORHEXIDINE 0.12% (ORAL KIT) 15 ML CUP MT SCH ×2 (08:12→20:09)
[2017-09-19] MEDS: SODIUM CHLORIDE 0.9% FLUSH 10 ML FLUSH IV FLUSH SCH ×2 (08:12→20:09)
[2017-09-19] MEDS: LINEZOLID 600 MG PREMIX 300 ML IV SCH (08:12)
[2017-09-19] MEDS: PANTOPRAZOLE SODIUM 40 MG VIAL IV PUSH SCH (08:12)
[2017-09-19] MEDS: LACTULOSE SYRUP 20 GM/30 ML CUP PO SCH (08:13)
[2017-09-19] MEDS: BISACODYL 10 MG SUPP RECTAL SCH (08:13)
[2017-09-19] MEDS: DOCUSATE SODIUM 50 MG/SENNA 8.6 MG TAB PO SCH ×2 (08:13→20:09)
--- NOTE | 2017-09-19 10:04 | HHI.IDPN ---
Subjective Subjective Remarks Patient seen and examined with Dr. Becerril is a 48 y/o male involved in a [facility]ENTI[facility] was found at the median-GCS 15,c/ o pain right chest,right wrist,right elbow,left wrist,HD normal,neuro intact- proceeded with ET intubation in for SOB with severe blunt right chest trauma and multi trauma. Head CT showed no acute intracranial abnormality.He was noted to have severe right chest trauma and right chest tube was placed. He sustained multiple fractures including multiple right ribs, left distal radius, right distal radius, open right elbow fracture dislocation, right clavicle fracture, right fifth metacarpal and middle phalangeal fifth digit finger fracture. Summary of procedures in hospital: On 08/30/17 he underwent: Irrigation of right elbow with external fixator placement to the right elbow and right distal radius. On 09/02/17 he underwent revision of external fixation right elbow, open reduction internal fixation right radial shaft, open reduction internal fixation right distal radius intra-articular fracture, open reduction internal fixation left distal radius fracture, open reduction and pinning of left distal radial ulnar joint On 09/04/17 right chest tube was placed. Follow-up head CT 09/04/17 showed:. Infraorbital soft tissue emphysema, likely posttraumatic. No acute intracranial abnormality or significant interval change. Indwelling tubes and caths: 09/02/17: RIJ TLC 08/30/2017: Santos cath in place. Patient developed fevers and new workup sent including sputum cultures. Sputum culture positive for MRSA and ID consulted for MRSA pneumonia. Overnight events reviewed. Notes reviewed. Spoke with family and nurse. Patient eyes opening, occasional movement of extremities noted. Appears comfortable. Status post tracheostomy placement, by Dr. Cazares Low-grade temp overnight 99.2-99.8 Central line discontinued, All lines are PVL Bilateral foot No rash noted No Diarrhea, pasty stool overnight Santos in place clear yellow urine EEG negative. Leukocytosis. WBC 14.4 Antibiotics Zyvox Lines Line sites with no e.o infection Past Medical History reviewed (Madeline Kennedy) Allergies: Coded Allergies: No Known Allergies (Unverified , 08/30/17) Objective . Vital Signs Date Time Temp Pulse Resp B/P (MAP) Pulse Ox O2 Delivery O2 Flow Rate FiO2 09/19/17 07:38 50 09/19/17 07:38 96 50 09/19/17 06:00 116 09/19/17 04:00 120 09/19/17 04:00 99.6 120 22 145/81 (102) 95 09/19/17 04:00 50 09/19/17 03:45 95 50 09/19/17 02:00 114 09/19/17 01:10 96 50 09/19/17 00:00 99.8 88 22 127/60 (82) 94 09/19/17 00:00 88 09/19/17 00:00 50 09/18/17 22:00 118 09/18/17 21:04 95 50 09/18/17 20:00 118 09/18/17 20:00 99.2 118 15 166/75 (105) 95 09/18/17 20:00 50 09/18/17 18:00 121 09/18/17 16:27 96 50 09/18/17 16:00 50 09/18/17 16:00 121 09/18/17 16:00 99.6 121 23 145/84 (104) 95 09/18/17 14:00 117 09/18/17 12:00 99.3 110 16 135/71 (92) 95 09/18/17 12:00 50 09/18/17 12:00 116 09/18/17 11:25 94 50 . Laboratory Tests Test 09/18/17 04:20 09/19/17 04:59 White Blood Count 9.7 TH/MM3 14.4 TH/MM3 Red Blood Count 2.36 MIL/MM3 2.87 MIL/MM3 Hemoglobin 7.0 GM/DL 8.1 GM/DL Hematocrit 21.1 % 25.2 % Mean Corpuscular Volume 89.2 FL 87.8 FL Mean Corpuscular Hemoglobin 29.7 PG 28.2 PG Mean Corpuscular Hemoglobin Concent 33.3 % 32.1 % Red Cell Distribution Width 13.9 % 13.8 % Platelet Count 578 TH/MM3 671 TH/MM3 Mean Platelet Volume 8.9 FL 8.8 FL Laboratory Tests Test 09/17/17 20:20 09/18/17 04:20 09/19/17 00:12 09/19/17 04:59 Potassium Level 3.5 MEQ/L 3.0 MEQ/L 3.1 MEQ/L 2.9 MEQ/L Phosphorus Level 4.3 MG/DL Magnesium Level 2.3 MG/DL Blood Urea Nitrogen 21 MG/DL 23 MG/DL Creatinine 0.99 MG/DL 0.91 MG/DL Random Glucose 130 MG/DL 148 MG/DL Calcium Level 8.2 MG/DL 8.7 MG/DL Sodium Level 140 MEQ/L 138 MEQ/L Chloride Level 102 MEQ/L 101 MEQ/L Carbon Dioxide Level 28.8 MEQ/L 25.0 MEQ/L Anion Gap 9 MEQ/L 12 MEQ/L Estimat Glomerular Filtration Rate 65 ML/MIN 72 ML/MIN Imaging Last Impressions Chest X-Ray 09/15/17 0600 Signed Impressions: Service Date/Time: Friday, September 15, 2017 04:13 - CONCLUSION: Continued improvement in aeration. Gray Jimenez MD Lower Extremity Ultrasound 09/11/17 0000 Signed Impressions: Service Date/Time: August 17:27 - CONCLUSION: No evidence of DVT. Douglas Baker MD Chest Tube Insertion 09/08/17 0000 Signed Impressions: Service Date/Time: Friday, September 08, 2017 16:41 - CONCLUSION: Uncomplicated chest tube placement as above. Gray Jimenez MD Chest CT 09/05/17 0000 Signed Impressions: Service Date/Time: Tuesday, September 05, 2017 11:48 - CONCLUSION: 1. Persistent moderate size right pneumothorax, slightly decreased in size from yesterday's CT. 2 right chest tubes have been placed in the more lateral and inferior chest tube is posterior to the lung and the more anterior chest tube appears to be within the right upper lobe lung parenchyma. The 2. Extensive chest wall subcutaneous emphysema remains present and increased., right greater than left. 3. There is bilateral lower lung zone volume loss and airspace consolidation, slightly increased from yesterday's exam. 4. Stable multiple right rib fractures and partially visualized right clavicle fracture. Gray Hopkins MD Head CT 09/04/17 0000 Signed Impressions: Service Date/Time: August 11:02 - CONCLUSION: 1. Infraorbital soft tissue emphysema, likely posttraumatic. 2. No acute intracranial abnormality or significant interval change. Michael Boles MD Wrist X-Ray 09/02/17 0000 Signed Impressions: Service Date/Time: Saturday, September 02, 2017 00:00 - CONCLUSION: Good position and alignment on this postoperative study. Douglas Baker MD Elbow X-Ray 09/02/17 0000 Signed Impressions: Service Date/Time: Saturday, September 02, 2017 14:26 - CONCLUSION: External fixator device in place. Douglas Baker MD Pelvis X-Ray 08/30/17 1521 Signed Impressions: Service Date/Time: Wednesday, August 30, 2017 15:21 - CONCLUSION: 1. Negative examination. Lucius Trevino MD Cervical Spine CT 08/30/17 1521 Signed Impressions: Service Date/Time: Wednesday, August 30, 2017 16:09 - CONCLUSION: 1. Negative for fracture or subluxation of the cervical spine. No canal stenosis. 2. Endotracheal tube and right chest tube present. Right rib fractures. Austin Jarquin MD Abdomen/Pelvis CT 08/30/17 1521 Signed Impressions: Service Date/Time: Wednesday, August 30, 2017 16:20 - CONCLUSION: Numerous lower right rib fractures with small right pneumothorax and hemothorax and dependent consolidation in both lungs. Right chest tube present. No solid visceral injury identified within the abdomen or pelvis. No free air or free fluid. Austin Jarquin MD Upper Extremity CT 08/30/17 0000 Signed Impressions: Service Date/Time: Wednesday, August 30, 2017 16:30 - CONCLUSION: 1. Subluxation of the radius anteriorly at the radiocapitellar joint. 2. Severely comminuted proximal ulnar fracture as above portions of the articular surface displaced proximally above the cochlea. Fracture fragments are markedly displaced and rotated. See above discussion. Austin Jarquin MD Radius/Ulna X-Ray 08/30/17 0000 Signed Impressions: Service Date/Time: Wednesday, August 30, 2017 15:21 - CONCLUSION: 1. Displaced fracture involving the distal left radius. 2. Fracture of the ulnar styloid. Lucius Trevino MD Physical Exam GENERAL: This is a well-nourished, well-developed patient, in no apparent distress. SKIN: No generalized rashes. Warm and dry. HEAD: Normocephalic. EYES: Pupils equal round and reactive.No scleral icterus. No injection or drainage. ENT: Intubated. Dobbhoff in place connected to tube feeds. NECK: Trachea midline. Supple, nontender, no meningeal signs. CARDIOVASCULAR: Sinus rhythm, no murmurs appreciated. RESPIRATORY: BS decreased in bases. Right chest tube in place to low wall suction. GASTROINTESTINAL: Abdomen soft, non-tender, nondistended. : Santos draining clear yellow urine. MUSCULOSKELETAL: RUE in external fixator. LUE in dressing. NEUROLOGICAL: Eyes opening, not tracking. Occasional movement of extremities PSYCH: could not be assessed. LINES: IV line sites with no e.o infection. No central line. 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 Cazares. Per note, tracheobronchial tree was inspected. The mucosa was normal. There was no sputum. -Minimal secretions slightly blood-tinged as per respiratory therapist -MRSA surveillance Positive MRSA -patient can be colonized prior to admission Polytrauma Right chest tube for Traumatic pneumothorax. Acute respiratory failure failure on vent. Status post tracheostomy placement Likely will also need PEG placement Recommendations: Repeat CXR Continue Zyvox IV (ASP: Vanco LUIS 2 MRSA pneumonia), will determine to DC and will closely monitor vs continuing medication Central line discontinued, peripheral lines of bilateral foot. Monitor as this can increase risk for DVTs. EEG negative: no seizures. Consider Cdiff PCR, if diarrhea present Doppler UE cannot be done as arm in external fixators and dressings up to mid arm. Plan Discussed with Patients and parents. Further recommendations to follow (Madeline Kennedy) Remarks The exam, history, and the medical decision-making described in the above note were completed with the assistance of the mid-level provider. I reviewed and agree with the findings presented. I attest that I had a [id number] encounter with the patient on the same day, and personally performed and documented my assessment and findings in the medical record. Repeat CXR with residual disease likely from hemothorax from the trauma. Resp mechanics seem to be improving. DC Zyvox Will sign off please call back if any change in clinical condition or questions (Lian Becerril MD) Madeline Kennedy [facility] Sep 19, 2017 10:04 Lian Becerril MD Sep 19, 2017 15:57
--- NOTE | 2017-09-19 10:09 | RADRPT ---
EXAM DATE/TIME: 09/19/2017 09:31 [facility] COMPARISON: CHEST SINGLE AP, September 17, 2017, 17:37. INDICATIONS : Pneumonia. MEDICAL HISTORY : None. SURGICAL HISTORY : None. ENCOUNTER: Initial ACUITY: 3 weeks PAIN SCORE: Non-responsive. LOCATION: Bilateral chest FINDINGS: Stable tracheostomy with 2 right-sided chest tubes in place. Interval removal of right IJ central humphrey e. Interval placement of a nasoenteric feeding type catheter with tip in the proximal stomach. No sig nificant effusion or pneumothorax. Persistent lung contusion versus atelectasis in the right midlung zone. Cardiomediastinal contours are stable. Redemonstration of displaced right-sided rib fractures. CONCLUSION: 1. Stable right-sided chest tubes in place without significant effusion or pneumothorax. 2. Persistent focal lung contusion versus atelectasis in the right midlung zone. Michael Boles MD on September 19, 2017 at 10:04 Board Certified Radiologist. This report was verified electronically.
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
[2017-09-19] MEDS: KETAMINE INJ 500 MG in SODIUM CHLORID 0.9% 500 ML INJ 500 ML IV SCH (16:00)
[2017-09-19] MEDS ORDERED: KETAMINE INJ 500 MG in SODIUM CHLORID 0.9% 500 ML INJ 500 ML IV SCH (16:00)
[2017-09-19] MEDS: ACETAMINOPHEN 650 MG/20.3 ML UDC NG PRN (22:16)
[2017-09-19] MEDS: fentaNYL DRIP 250 ML IV PRN (23:12)
[2017-09-19] MEDS: CHLORHEXIDINE GLUCONATE 2 % 1 PACK (2 CLOTHS) TOP SCH (23:46)
[2017-09-20] VITALS (18 sets, daily range): BP systolic 124–156; BP diastolic 61–79; PULSE 97–126; RESP 9–19; TEMP 99–100.5; O2SAT 95–100
[2017-09-20] MEDS: KETAMINE INJ 500 MG in SODIUM CHLORID 0.9% 500 ML INJ 500 ML IV SCH (00:42)
[2017-09-20] MEDS: SILDENAFIL CITRATE 20 MG TAB PO SCH ×3 (02:12→18:30)
[2017-09-20] MEDS: ENOXAPARIN SODIUM 30 MG/0.3 ML SYRINGE SQ SCH ×2 (02:13→16:22)
[2017-09-20] MEDS: MAGNESIUM HYDROXIDE SUSP 30 ML CUP PO SCH ×2 (02:14→16:22)
[2017-09-20 04:12] LABS: BICARBONATE 28.2 MEQ/L (21.0-32.0); CALCIUM 8.7 MG/DL (8.5-10.1); CREATININE 0.79 MG/DL (0.60-1.30)
[2017-09-20 04:31] LABS: HEMATOCRIT 26.4 % (39.0-51.0); HEMOGLOBIN 8.7 GM/DL (13.0-17.0); MEAN CELL VOLUME 87.8 FL (80.0-100.0); MEAN CORPUSCULAR HEMOGLOBIN 28.9 PG (27.0-34.0); MEAN CORPUSCULAR HGB CONC 32.9 % (32.0-36.0); MEAN PLATELET VOLUME 8.7 FL (7.0-11.0); PLATELET COUNT 658 TH/MM3 (150-450); RED BLOOD COUNT 3.01 MIL/MM3 (4.50-5.90); RED CELL DISTRIBUTION WIDTH 14.3 % (11.6-17.2)
[2017-09-20] MEDS: ARTIFICIAL TEARS OPTH SOLN 15 ML BTL EACH EYE SCH ×3 (06:00→20:50)
[2017-09-20] MEDS: FUROSEMIDE 40 MG/4 ML VIAL IV PUSH SCH ×3 (06:15→22:50)
[2017-09-20] MEDS: CHLORHEXIDINE 0.12% (ORAL KIT) 15 ML CUP MT SCH ×2 (08:00→20:50)
[2017-09-20] MEDS: BISACODYL 10 MG SUPP RECTAL SCH (09:00)
[2017-09-20] MEDS: DOCUSATE SODIUM 50 MG/SENNA 8.6 MG TAB PO SCH ×2 (09:00→20:50)
[2017-09-20] MEDS: LACTULOSE SYRUP 20 GM/30 ML CUP PO SCH (09:00)
[2017-09-20] MEDS: fentaNYL DRIP 250 ML IV PRN ×2 (10:01→19:30)
[2017-09-20] MEDS: SODIUM CHLORIDE 0.9% FLUSH 10 ML FLUSH IV FLUSH SCH ×2 (10:12→20:50)
[2017-09-20] MEDS: PANTOPRAZOLE SODIUM 40 MG VIAL IV PUSH SCH (10:12)
[2017-09-20] MEDS: GABAPENTIN 250 MG/5 ML UDC NG SCH ×3 (10:13→18:30)
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
--- NOTE | 2017-09-20 16:20 | RADRPT ---
EXAM DATE/TIME: 09/20/2017 14:03 [facility] COMPARISON: ABDOMEN SINGLE VIEW, September 17, 2017, 21:50. INDICATIONS : NG tube placement. MEDICAL HISTORY : None. SURGICAL HISTORY : ORIF left forearm. ENCOUNTER: Subsequent ACUITY: 3 weeks PAIN SCORE: Non-responsive. LOCATION: Abdomen. FINDINGS: There is an NG tube with its tip in the mid body of the stomach. The bowel gas pattern is nonspecific . Free air is not clearly seen. Right chest tubes are present. CONCLUSION: NG tube in the stomach. Gray Burks MD on September 20, 2017 at 16:17 Board Certified Radiologist. This report was verified electronically.
[2017-09-20] MEDS: ACETAMINOPHEN 650 MG/20.3 ML UDC NG PRN (17:00)
[2017-09-21] VITALS (18 sets, daily range): BP systolic 110–169; BP diastolic 58–72; PULSE 106–126; RESP 14–26; TEMP 99.7–101; O2SAT 93–100
[2017-09-21] MEDS: ENOXAPARIN SODIUM 30 MG/0.3 ML SYRINGE SQ SCH ×2 (03:36→16:30)
[2017-09-21] MEDS: SILDENAFIL CITRATE 20 MG TAB PO SCH ×3 (03:36→18:04)
[2017-09-21] MEDS: CHLORHEXIDINE GLUCONATE 2 % 1 PACK (2 CLOTHS) TOP SCH ×2 (04:00→20:02)
[2017-09-21] MEDS: MAGNESIUM HYDROXIDE SUSP 30 ML CUP PO SCH ×2 (05:00→17:00)
[2017-09-21] MEDS: ARTIFICIAL TEARS OPTH SOLN 15 ML BTL EACH EYE SCH ×3 (05:15→21:19)
[2017-09-21] MEDS: KETAMINE INJ 500 MG in SODIUM CHLORID 0.9% 500 ML INJ 500 ML IV SCH (05:26)
[2017-09-21] MEDS: FUROSEMIDE 40 MG/4 ML VIAL IV PUSH SCH (06:43)
[2017-09-21] MEDS: CHLORHEXIDINE 0.12% (ORAL KIT) 15 ML CUP MT SCH ×2 (08:08→20:21)
[2017-09-21] MEDS: SODIUM CHLORIDE 0.9% FLUSH 10 ML FLUSH IV FLUSH SCH ×2 (08:08→20:21)
[2017-09-21 09:00] LABS: BICARBONATE 29.8 MEQ/L (21.0-32.0); CALCIUM 8.7 MG/DL (8.5-10.1); CREATININE 0.96 MG/DL (0.60-1.30)
[2017-09-21] MEDS: DOCUSATE SODIUM 50 MG/SENNA 8.6 MG TAB PO SCH ×2 (09:00→21:19)
[2017-09-21] MEDS: LACTULOSE SYRUP 20 GM/30 ML CUP PO SCH (09:00)
[2017-09-21] MEDS: BISACODYL 10 MG SUPP RECTAL SCH (09:00)
[2017-09-21 09:15] LABS: HEMATOCRIT 28.2 % (39.0-51.0); HEMOGLOBIN 8.8 GM/DL (13.0-17.0); MEAN CELL VOLUME 86.2 FL (80.0-100.0); MEAN CORPUSCULAR HEMOGLOBIN 26.9 PG (27.0-34.0); MEAN CORPUSCULAR HGB CONC 31.2 % (32.0-36.0); MEAN PLATELET VOLUME 8.2 FL (7.0-11.0); PLATELET COUNT 885 TH/MM3 (150-450); RED BLOOD COUNT 3.27 MIL/MM3 (4.50-5.90); RED CELL DISTRIBUTION WIDTH 13.9 % (11.6-17.2)
[2017-09-21] MEDS: PANTOPRAZOLE SODIUM 40 MG VIAL IV PUSH SCH (09:55)
[2017-09-21] MEDS: GABAPENTIN 250 MG/5 ML UDC NG SCH ×3 (09:55→18:04)
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
[2017-09-21] MEDS ORDERED: POTASSIUM CHLORIDE 25 MEQ EFFERVESCENT TAB PO ONE (12:15)
[2017-09-21] MEDS: fentaNYL DRIP 250 ML IV PRN (18:04)
[2017-09-22] VITALS (18 sets, daily range): BP systolic 106–144; BP diastolic 55–83; PULSE 76–124; RESP 14–28; TEMP 99.7–100.7; O2SAT 93–100
[2017-09-22] MEDS: SILDENAFIL CITRATE 20 MG TAB PO SCH ×2 (03:00→09:01)
[2017-09-22] MEDS: ENOXAPARIN SODIUM 30 MG/0.3 ML SYRINGE SQ SCH (03:00)
[2017-09-22] MEDS: MAGNESIUM HYDROXIDE SUSP 30 ML CUP PO SCH ×2 (03:01→17:00)
[2017-09-22] MEDS: ARTIFICIAL TEARS OPTH SOLN 15 ML BTL EACH EYE SCH ×3 (06:15→22:03)
[2017-09-22] MEDS: fentaNYL DRIP 250 ML IV PRN ×2 (06:16→16:20)
[2017-09-22 06:18] LABS: HEMATOCRIT 24.9 % (39.0-51.0); HEMOGLOBIN 8.1 GM/DL (13.0-17.0); MEAN CELL VOLUME 86.8 FL (80.0-100.0); MEAN CORPUSCULAR HEMOGLOBIN 28.4 PG (27.0-34.0); MEAN CORPUSCULAR HGB CONC 32.7 % (32.0-36.0); MEAN PLATELET VOLUME 8.5 FL (7.0-11.0); PLATELET COUNT 726 TH/MM3 (150-450); RED BLOOD COUNT 2.87 MIL/MM3 (4.50-5.90); RED CELL DISTRIBUTION WIDTH 14.4 % (11.6-17.2); WHITE BLOOD COUNT 20.7 TH/MM3 (4.0-11.0)
[2017-09-22 06:42] LABS: BICARBONATE 27.8 MEQ/L (21.0-32.0); CALCIUM 8.6 MG/DL (8.5-10.1); CREATININE 0.76 MG/DL (0.60-1.30); MAGNESIUM 2.4 MG/DL (1.5-2.5)
--- NOTE | 2017-09-22 07:13 | PD.ORT.PN ---
Subjective Subjective Remarks POD 20 s/p ORIF bilateral wrists s/p right elbow fx s/p right clavicle fx trached. awake. moving. Objective Vitals Vital Signs Date Time Temp Pulse Resp B/P (MAP) Pulse Ox O2 Delivery O2 Flow Rate FiO2 09/22/17 04:28 95 40 09/22/17 04:00 40 09/22/17 04:00 100.3 124 28 126/83 (97) 94 09/22/17 04:00 124 09/22/17 02:00 106 09/22/17 00:35 98 40 09/22/17 00:00 98 09/22/17 00:00 100.0 98 14 115/60 (78) 98 09/22/17 00:00 40 09/21/17 22:00 116 09/21/17 20:27 97 40 09/21/17 20:00 126 09/21/17 20:00 40 09/21/17 20:00 99.7 126 26 169/72 (104) 100 09/21/17 18:00 118 09/21/17 16:00 40 09/21/17 16:00 100.4 116 15 127/58 (81) 96 09/21/17 16:00 116 09/21/17 14:00 116 09/21/17 12:00 116 09/21/17 12:00 40 09/21/17 12:00 99.9 116 20 137/65 (89) 96 09/21/17 11:29 96 40 09/21/17 11:27 100 40 09/21/17 10:00 106 09/21/17 08:08 96 40 09/21/17 08:00 40 09/21/17 08:00 118 09/21/17 08:00 100.5 118 18 150/68 (95) 96 I/O 09/21/17 09/21/17 09/21/17 09/22/17 09/22/17 09/22/17 07:00 15:00 23:00 07:00 15:00 23:00 Intake Total 982 ml 126 ml 1908 ml 887 ml Output Total 1250 ml 1850 ml 1200 ml Balance -268 ml 126 ml 58 ml -313 ml Intake IV Total 250 ml 126 ml 250 ml 250 ml Tube Feeding 582 ml 758 ml 547 ml Tube Irrigant 150 ml 900 ml 90 ml Output Urine Total 1250 ml 1850 ml 1200 ml Chest Tube Drainage Total 0 ml 0 ml 0 ml # Bowel Movements 1 2 2 Result Diagram: 09/22/17 0443 09/22/17 0443 Imaging Last 24 hours Impressions Chest X-Ray 08/31/17 0000 Signed Impressions: Service Date/Time: Thursday, August 31, 2017 03:25 - CONCLUSION: 1. Multiple right-sided rib fractures with pulmonary parenchymal contusion. Developing bibasilar atelectatic changes. 2. Right-sided thoracostomy tube without pneumothorax. Appropriate positioning of the endotracheal and nasogastric tubes. 3. Right clavicular fracture. Adan Chambers MD Pelvis X-Ray 08/30/17 1521 Signed Impressions: Service Date/Time: Wednesday, August 30, 2017 15:21 - CONCLUSION: 1. Negative examination. Lucius Trevino MD Head CT 08/30/17 1521 Signed Impressions: Service Date/Time: Wednesday, August 30, 2017 16:06 - CONCLUSION: 1. No acute intracranial abnormality is identified. Lucius Trevino MD Chest X-Ray 08/30/17 1521 Signed Impressions: Service Date/Time: Wednesday, August 30, 2017 15:21 - CONCLUSION: 1. Multiple right rib fractures and right clavicle fracture with questionable right lung contusion and pneumothorax. Austin Jarquin MD Chest CT 08/30/17 1521 Signed Impressions: Service Date/Time: Wednesday, August 30, 2017 16:20 - CONCLUSION: 1. Fracture of the right third through ninth ribs. Some of the ribs are fractured in 2 places. 2. Small right-sided pneumothorax with parenchymal contusion. There is a right-sided chest tube already in good position. 3. Endotracheal tube in satisfactory position. 4. The aorta and great vessels appear intact. Lucius Trevino MD Cervical Spine CT 08/30/17 1521 Signed Impressions: Service Date/Time: Wednesday, August 30, 2017 16:09 - CONCLUSION: 1. Negative for fracture or subluxation of the cervical spine. No canal stenosis. 2. Endotracheal tube and right chest tube present. Right rib fractures. Austin Jarquin MD Abdomen/Pelvis CT 08/30/17 1521 Signed Impressions: Service Date/Time: Wednesday, August 30, 2017 16:20 - CONCLUSION: Numerous lower right rib fractures with small right pneumothorax and hemothorax and dependent consolidation in both lungs. Right chest tube present. No solid visceral injury identified within the abdomen or pelvis. No free air or free fluid. Austin Jarquin MD Objective Remarks RUE: +exfix of elbow and wrist splint. pin sites clean. good cap refill of fingers. +bruising and swelling of shoulder LUE: + Long arm splint. intact. +cap refill Assessment & Plan Assessment and Plan 1) Open fracture dislocation right elbow 2) Fracture right distal radius, intra-articular, comminuted. 3) Fracture left distal radius with distal radial ulnar joint dislocation ( Galeazzi variant) 4) Right Clavicle Fx POD 20 : ORIF with revision of exfix of right distal radius fx Revision of exfix right elbow ORIF of left distal radius fx with pinning of DRUJ PLAN: NWB BUE pin care to right arm BID maintain splint on left arm at all times once patient stable and is able to be positioned laterally for surgery of the right elbow we will proceed patient lung status is slowly improving will anticipate surgery tomorrow for right elbow consents on chart will confirm with electrical and radio aircraft mechanic that patient is stable Marc Rivero/Certified Nursing Assistant PA Sep 22, 2017 07:13
[2017-09-22] MEDS: LACTULOSE SYRUP 20 GM/30 ML CUP PO SCH (08:58)
[2017-09-22] MEDS: SODIUM CHLORIDE 0.9% FLUSH 10 ML FLUSH IV FLUSH SCH ×2 (08:58→20:48)
[2017-09-22] MEDS: DOCUSATE SODIUM 50 MG/SENNA 8.6 MG TAB PO SCH ×2 (08:58→20:47)
[2017-09-22] MEDS: GABAPENTIN 250 MG/5 ML UDC NG SCH ×3 (08:58→17:35)
[2017-09-22] MEDS: CHLORHEXIDINE 0.12% (ORAL KIT) 15 ML CUP MT SCH ×2 (08:58→20:48)
[2017-09-22] MEDS: BISACODYL 10 MG SUPP RECTAL SCH (08:58)
[2017-09-22] MEDS: PANTOPRAZOLE SODIUM 40 MG VIAL IV PUSH SCH (08:58)
[2017-09-22] MEDS ORDERED: POTASSIUM CHLORIDE 25 MEQ EFFERVESCENT TAB PO PRN (09:30)
[2017-09-22] MEDS: FUROSEMIDE 40 MG/4 ML VIAL IV PUSH SCH (12:57)
[2017-09-22] MEDS ORDERED: DEXMEDETOMIDINE HCL 200 MCG/2 ML VIAL IV PUSH ONE (13:00)
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
[2017-09-22] MEDS: DEXMEDETOMIDINE INJ 200 MCG in SODIUM CHLORIDE 0.9% INJ 50 ML IV PRN ×4 (14:04→20:47)
[2017-09-22] MEDS: PROPRANOLOL HCL 40 MG TAB PO SCH ×2 (14:50→20:47)
[2017-09-22] MEDS: KETAMINE INJ 500 MG in SODIUM CHLORID 0.9% 500 ML INJ 500 ML IV SCH (16:00)
[2017-09-22] MEDS ORDERED: PROPOFOL 1000 MG/100 ML INJ 100 ML IV PRN (17:45)
[2017-09-22] MEDS ORDERED: ZIPRASIDONE MESYLATE 20 MG VIAL IM PRN (17:45)
[2017-09-22] MEDS: CHLORHEXIDINE GLUCONATE 2 % 1 PACK (2 CLOTHS) TOP SCH (22:03)
[2017-09-23] VITALS (19 sets, daily range): BP systolic 100–170; BP diastolic 53–100; PULSE 74–101; RESP 19–28; TEMP 99.3–101.2; O2SAT 92–100
[2017-09-23] MEDS: DEXMEDETOMIDINE INJ 200 MCG in SODIUM CHLORIDE 0.9% INJ 50 ML IV PRN ×5 (01:21→20:21)
[2017-09-23] MEDS: MAGNESIUM HYDROXIDE SUSP 30 ML CUP PO SCH ×2 (05:00→17:00)
[2017-09-23 05:22] LABS: ALBUMIN 2.8 GM/DL (3.4-5.0); AST (GOT) 127 U/L (15-37); BICARBONATE 24.2 MEQ/L (21.0-32.0); BLOOD UREA NITROGEN 32 MG/DL (7-18); CALCIUM 8.4 MG/DL (8.5-10.1); CHLORIDE 108 MEQ/L (98-107); CREATININE 0.85 MG/DL (0.60-1.30); GLOMERULAR FILTRATION RATE 78 ML/MIN (>89); GLUCOSE,RANDOM 112 MG/DL (74-106); SODIUM (NA) 140 MEQ/L (136-145)
[2017-09-23 05:27] LABS: ALKALINE PHOSPHATASE 202 U/L (45-117); ALT (GPT) 141 U/L (12-78); TOTAL BILIRUBIN ADULT 0.7 MG/DL (0.2-1.0); TOTAL PROTEIN 7.5 GM/DL (6.4-8.2)
[2017-09-23] MEDS: ARTIFICIAL TEARS OPTH SOLN 15 ML BTL EACH EYE SCH ×3 (05:53→21:12)
[2017-09-23] MEDS: fentaNYL DRIP 250 ML IV PRN ×2 (05:53→20:22)
--- NOTE | 2017-09-23 06:08 | RADRPT ---
EXAM DATE/TIME: 09/23/2017 05:01 [place] COMPARISON: CHEST SINGLE AP, September 19, 2017, 9:31. INDICATIONS : Short of breath. MEDICAL HISTORY : None. SURGICAL HISTORY : None. ENCOUNTER: Subsequent ACUITY: 3 weeks PAIN SCORE: Non-responsive. LOCATION: Bilateral chest FINDINGS: A single view of the chest demonstrates interstitial and alveolar opacities. 2 right-sided chest tube s. No definite pneumothorax. Tracheostomy tube and nasogastric tube unchanged. Right-sided rib fractu res. CONCLUSION: Interstitial and alveolar opacities. No right-sided pneumothorax. Chago Snyder MD on September 23, 2017 at 6:05 Board Certified Radiologist. This report was verified electronically.
[2017-09-23 07:28] LABS: AUTOMATED NEUTROPHIL # 14.1 TH/MM3 (1.8-7.7); BASOPHIL # 0.1 TH/MM3 (0-0.2); BASOPHIL % 0.6 % (0.0-2.0); EOSINOPHIL # 0.7 TH/MM3 (0-0.4); EOSINOPHIL % 3.5 % (0.0-4.0); HEMATOCRIT 24.3 % (39.0-51.0); HEMOGLOBIN 7.9 GM/DL (13.0-17.0); LYMPHOCYTE # 2.3 TH/MM3 (1.0-4.8); MEAN CELL VOLUME 87.1 FL (80.0-100.0); MEAN CORPUSCULAR HEMOGLOBIN 28.2 PG (27.0-34.0); MEAN CORPUSCULAR HGB CONC 32.4 % (32.0-36.0); MEAN PLATELET VOLUME 8.2 FL (7.0-11.0); MONO % 11.6 % (0.0-8.0); MONOCYTE # 2.3 TH/MM3 (0-0.9); NEUT % 72.3 % (16.0-70.0); PLATELET COUNT 625 TH/MM3 (150-450); RED BLOOD COUNT 2.79 MIL/MM3 (4.50-5.90); RED CELL DISTRIBUTION WIDTH 14.5 % (11.6-17.2); WHITE BLOOD COUNT 19.5 TH/MM3 (4.0-11.0)
--- NOTE | 2017-09-23 07:31 | PD.ORT.PN ---
Subjective Subjective Remarks POD 21 s/p ORIF bilateral wrists s/p right elbow fx s/p right clavicle fx trached. awake. moving. Objective Vitals Vital Signs Date Time Temp Pulse Resp B/P (MAP) Pulse Ox O2 Delivery O2 Flow Rate FiO2 09/23/17 06:00 88 09/23/17 04:15 96 40 09/23/17 04:00 99.9 94 24 155/74 (101) 100 09/23/17 04:00 94 09/23/17 04:00 40 09/23/17 02:00 90 09/23/17 00:05 100 40 09/23/17 00:00 40 09/23/17 00:00 99.3 86 21 148/92 (110) 99 09/23/17 00:00 86 09/22/17 22:00 76 09/22/17 20:23 100 40 09/22/17 20:00 86 09/22/17 20:00 99.8 86 17 121/58 (79) 99 09/22/17 20:00 40 09/22/17 18:00 94 09/22/17 16:00 99.8 90 19 106/55 (72) 99 09/22/17 16:00 90 09/22/17 16:00 40 09/22/17 15:47 98 40 09/22/17 14:00 108 09/22/17 12:00 99.7 106 19 119/70 (86) 94 09/22/17 12:00 40 09/22/17 12:00 106 09/22/17 11:34 95 40 09/22/17 10:00 101 09/22/17 08:00 100.7 114 14 144/72 (96) 94 09/22/17 08:00 40 09/22/17 08:00 114 09/22/17 07:48 93 40 I/O 09/22/17 09/22/17 09/22/17 09/23/17 09/23/17 09/23/17 07:00 15:00 23:00 07:00 15:00 23:00 Intake Total 887 ml 1676 ml 796 ml Output Total 1200 ml 1950 ml 615 ml Balance -313 ml -274 ml 181 ml Intake IV Total 250 ml 354 ml 355 ml Tube Feeding 547 ml 662 ml 411 ml Tube Irrigant 90 ml 660 ml 30 ml Output Urine Total 1200 ml 1950 ml 600 ml Chest Tube Drainage Total 0 ml 0 ml 15 ml # Bowel Movements 2 1 0 Result Diagram: 09/22/17 0443 09/23/17 0340 Imaging Last 24 hours Impressions Chest X-Ray 08/31/17 0000 Signed Impressions: Service Date/Time: Thursday, August 31, 2017 03:25 - CONCLUSION: 1. Multiple right-sided rib fractures with pulmonary parenchymal contusion. Developing bibasilar atelectatic changes. 2. Right-sided thoracostomy tube without pneumothorax. Appropriate positioning of the endotracheal and nasogastric tubes. 3. Right clavicular fracture. Adan Chambers MD Pelvis X-Ray 08/30/17 1521 Signed Impressions: Service Date/Time: Wednesday, August 30, 2017 15:21 - CONCLUSION: 1. Negative examination. Lucius Trevino MD Head CT 08/30/17 1521 Signed Impressions: Service Date/Time: Wednesday, August 30, 2017 16:06 - CONCLUSION: 1. No acute intracranial abnormality is identified. Lucius Trevino MD Chest X-Ray 08/30/17 1521 Signed Impressions: Service Date/Time: Wednesday, August 30, 2017 15:21 - CONCLUSION: 1. Multiple right rib fractures and right clavicle fracture with questionable right lung contusion and pneumothorax. Austin Jarquin MD Chest CT 08/30/17 1521 Signed Impressions: Service Date/Time: Wednesday, August 30, 2017 16:20 - CONCLUSION: 1. Fracture of the right third through ninth ribs. Some of the ribs are fractured in 2 places. 2. Small right-sided pneumothorax with parenchymal contusion. There is a right-sided chest tube already in good position. 3. Endotracheal tube in satisfactory position. 4. The aorta and great vessels appear intact. Lucius Trevino MD Cervical Spine CT 08/30/17 1521 Signed Impressions: Service Date/Time: Wednesday, August 30, 2017 16:09 - CONCLUSION: 1. Negative for fracture or subluxation of the cervical spine. No canal stenosis. 2. Endotracheal tube and right chest tube present. Right rib fractures. Austin Jarquin MD Abdomen/Pelvis CT 08/30/17 1521 Signed Impressions: Service Date/Time: Wednesday, August 30, 2017 16:20 - CONCLUSION: Numerous lower right rib fractures with small right pneumothorax and hemothorax and dependent consolidation in both lungs. Right chest tube present. No solid visceral injury identified within the abdomen or pelvis. No free air or free fluid. Austin Jarquin MD Objective Remarks RUE: +exfix of elbow and wrist splint. pin sites clean. good cap refill of fingers. +bruising and swelling of shoulder LUE: + Long arm splint. intact. +cap refill Assessment & Plan Assessment and Plan 1) Open fracture dislocation right elbow 2) Fracture right distal radius, intra-articular, comminuted. 3) Fracture left distal radius with distal radial ulnar joint dislocation ( Galeazzi variant) 4) Right Clavicle Fx POD 21 : ORIF with revision of exfix of right distal radius fx Revision of exfix right elbow ORIF of left distal radius fx with pinning of DRUJ PLAN: NWB BUE pin care to right arm BID maintain splint on left arm at all times plan for surgery today for right elbow Marc Rivero/Blood Donor Unit Assistant [facility] Sep 23, 2017 07:30
--- NOTE | 2017-09-23 07:56 | EKG ---
Date Performed: 09/23/2017 Time Performed: 05:01:24 PTAGE: 89 years EKG: Sinus rhythm . Normal ECG Compared to prior electrocardiogram, rate has decreased PREVIOUS TRACING : 09/02/2017 02.36 DOCTOR: Ramsey Roberto Interpretating Date/Time 09/23/2017 07:55:38
[2017-09-23 08:19] LABS: OVALOCYTES 1+ (NORMAL)
[2017-09-23] MEDS: LACTULOSE SYRUP 20 GM/30 ML CUP PO SCH (09:00)
[2017-09-23] MEDS: DOCUSATE SODIUM 50 MG/SENNA 8.6 MG TAB PO SCH ×2 (09:00→21:00)
[2017-09-23] MEDS: BISACODYL 10 MG SUPP RECTAL SCH (09:00)
[2017-09-23] MEDS ORDERED: HYDROmorphone HCL PF 1 MG/ML VIAL IV PUSH PRN (09:00)
[2017-09-23] MEDS ORDERED: ALBUMIN 25% INJ 100 ML IV ONE (09:15)
[2017-09-23] MEDS: SODIUM CHLORIDE 0.9% FLUSH 10 ML FLUSH IV FLUSH SCH ×2 (09:15→21:12)
[2017-09-23] MEDS: CHLORHEXIDINE 0.12% (ORAL KIT) 15 ML CUP MT SCH ×2 (09:15→20:51)
[2017-09-23] MEDS: FUROSEMIDE 40 MG/4 ML VIAL IV PUSH SCH (09:15)
[2017-09-23] MEDS: GABAPENTIN 250 MG/5 ML UDC NG SCH ×3 (09:15→18:00)
[2017-09-23] MEDS: PROPRANOLOL HCL 40 MG TAB PO SCH ×3 (09:16→18:00)
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
[2017-09-23] MEDS: FAMOTIDINE 20 MG TAB NG SCH ×2 (09:29→21:08)
[2017-09-23] MEDS: oxyCODONE HCL ORAL CONC 5 MG/0.25 ML SYRINGE PO SCH ×4 (09:30→21:09)
[2017-09-23] MEDS: QUEtiapine FUMARATE 25 MG TAB PO SCH ×3 (09:58→21:12)
[2017-09-23] MEDS ORDERED: PROPOFOL 200 MG/20 ML AMP IV ONE (12:00)
[2017-09-23] MEDS ORDERED: ROCURONIUM INJ 50 MG/5 ML SYRINGE IV PUSH ONE (12:00)
[2017-09-23] MEDS ORDERED: PHENYLEPH/NS 1000 MCG/10 ML SYR IV ONE (12:00)
[2017-09-23] MEDS ORDERED: VECURONIUM BROMIDE 20 MG VIAL IV ONE (12:00)
[2017-09-23] MEDS ORDERED: LIDOCAINE HCL 1% PF 5 ML SYRINGE OTHER ONE (12:00)
[2017-09-23] MEDS ORDERED: LACTATED RINGER'S 1000 ML INJ 1,000 ML IV ONE (12:00)
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
[2017-09-23] MEDS ORDERED: VANCOMYCIN HCL 1000 MG VIAL ONE (16:30)
[2017-09-23] MEDS ORDERED: GENTAMICIN SULFATE 80 MG/2 ML VIAL ONE (16:30)
[2017-09-23] MEDS ORDERED: ceFAZolin INJ 1,000 MG VIAL ONE (16:30)
--- NOTE | 2017-09-23 19:04 | PD.OP ---
cc: Edward Arvizu MD Operative Report Date of Surgery: Sep 23, 2017 Preoperative Diagnosis: Comminuted right proximal ulna fracture with radial head dislocation Postoperative Diagnosis: Procedure: Open reduction and fixation right proximal ulna, closed reduction of radial head , removal external fixation Anesthesia: Gen. Surgeon: Edward Arvizu Wall And Floor Tiler(s): Marc Rivero PA-C The surgical procedure was assisted by my physician drilling assistant. My P.A. presence was necessary throughout this case for the manipulation and positioning of the surgical extremity. My P.A. was assisting me throughout the duration of this procedure. The skill set of a physician drilling assistant was medically necessary to complete this procedure. During the surgical case the surveillance camera technician was working at the back table and the physician drilling assistant was directly assisting me. Operation and Findings: Patient was seen and evaluated preoperatively. Patient was found to have a displaced intra-articular olecranon fracture with dislocation of radial head. He previously underwent closed reduction external fixation.. The risk and benefits of the surgery were discussed in depth and informed consent was obtained and patient's . Patient has still been intubated and sedated in the intensive care unit. Risk of surgery include bleeding, infection, painful hardware, wound, case, elbow stiffness, loss of motion, elbow arthritis, injuries to arteries nerves or blood vessels, weakness and numbness of hand, as well as medical complications associated with general anesthesia. All questions were answered. Patient was brought to operating room. IV sedation and anesthesia were administered. Patient was placed into a lateral decubitus position. Timeout procedure was performed. IV antibiotics were administered prior to incision. Procedure began with removal of a portion of the external fixation. Clamps were loosened. Clamps and bars were removed from the pins. The pins were left in place at this time. The right arm was prepped with alcohol followed by Hibiclens and draped in usual sterile fashion. Procedure began with a 6 inch incision over the olecranon. Subcutaneous tissue dissected with Bovie. Fracture site was visualized. Fascia was elevated around the fracture site. There was comminution of the fracture site. Fracture fragments were gently manipulated. There was displacement of the coronoid process fragment. The large olecranon fragment was reduced to the ulna. Fracture 5 was were manipulated to achieve excellent reduction. Soft tissue was elevated around the medial aspect of the proximal ulna. The ulnar nerve was protected. Curettes were used to remove fracture callus formation along the fracture lines. The coronoid process fragment was manipulated and reduced. Fracture tenaculums were used to compress fracture fragments. The metaphyseal fragments were also reduced. A fracture tenaculum was used to aid in reduction. Multiple K wires result provisional fixation. Once the ulna was reduced, the radial head was also reduced. A Synthes proximal plate was selected. Plate was provisionally held with K wires 3.5 cortical screws were used to compress plate to bone. Multiple cortical screws were placed in the ulna shaft. Multiple locking screws were placed in the proximal ulna. All screws were predrilled and premeasured for appropriate length. Additional 2.7 cortical lag screws were placed from lateral to medial. K wires were removed. Final fluoroscopy revealed excellent of fractures well-placed hardware. Articular surface appeared to be in near anatomic alignment. Wound was now thoroughly irrigated. Incision was now closed with #1 Vicryl, 3-0 Vicryl, and deny. At this point the remainder of the external fixator was removed. Each of the pins was removed. At this point the elbow joint was gently manipulated to improve range of motion. Range of motion was from 10 to 130. Sterile dressings were applied. Patient's placed a well molded well-padded splint. Patient was transferred to recovery in stable condition. Edward Arvizu MD Sep 23, 2017 19:03
--- NOTE | 2017-09-23 19:52 | RADRPT ---
EXAM DATE/TIME: 09/23/2017 18:43 [facility] COMPARISON: FOREARM RIGHT (2VWS), September 16, 2017, 6:45. INDICATIONS : ORIF of a right proximal ulnar fracture.. MEDICAL HISTORY : Non-responsive SURGICAL HISTORY : Non-responsive ENCOUNTER: Subsequent ACUITY: 3 weeks PAIN SCORE: Non-responsive. LOCATION: Right upper extremity FINDINGS: 5 coned down views of the elbow were obtained using matrix camera and demonstrate placement of a scre w plate fixation device transfixing the proximal ulnar fracture. The main fracture fragments are in n ear-anatomic alignment. The proximal radius and distal humerus are intact in appearance. There is sof t tissue swelling. CONCLUSION: Status post open rigid internal fixation. Wilman Bragg MD on September 23, 2017 at 19:48 Board Certified Radiologist. This report was verified electronically.
[2017-09-23] MEDS ORDERED: Post-op Orders (for Pharmacy) XX ONE (20:00)
[2017-09-23] MEDS: MORPHINE SULFATE 8 MG/ML INJ IV PUSH PRN (20:22)
[2017-09-23] MEDS ORDERED: MIDAZOLAM HCL 2 MG/2 ML VIAL IV PUSH ONE (20:30)
[2017-09-23] MEDS: MELATONIN 5 MG TAB PO SCH (21:08)
[2017-09-23] MEDS ORDERED: SODIUM CHLOR 0.9% 1000 ML INJ 2,000 ML IV ONE (22:45)
[2017-09-24] VITALS (19 sets, daily range): BP systolic 101–136; BP diastolic 54–83; PULSE 68–88; RESP 14–25; TEMP 97.9–102.1; O2SAT 94–100
[2017-09-24] MEDS: oxyCODONE HCL ORAL CONC 5 MG/0.25 ML SYRINGE PO SCH ×6 (00:23→20:07)
[2017-09-24] MEDS: CEFAZOLIN INJ 2,000 MG in SODIUM CHLORIDE 0.9% INJ 100 ML IV SCH ×3 (02:00→17:06)
[2017-09-24] MEDS: DEXMEDETOMIDINE INJ 200 MCG in SODIUM CHLORIDE 0.9% INJ 50 ML IV PRN ×5 (03:16→12:28)
[2017-09-24] MEDS: CHLORHEXIDINE GLUCONATE 2 % 1 PACK (2 CLOTHS) TOP SCH (03:35)
[2017-09-24] MEDS: MAGNESIUM HYDROXIDE SUSP 30 ML CUP PO SCH ×2 (03:36→16:05)
[2017-09-24] MEDS: MORPHINE SULFATE 8 MG/ML INJ IV PUSH PRN (04:45)
[2017-09-24] MEDS: PROPRANOLOL HCL 40 MG TAB PO SCH ×4 (05:17→17:07)
[2017-09-24] MEDS: QUEtiapine FUMARATE 25 MG TAB PO SCH ×3 (05:17→23:01)
[2017-09-24 05:56] LABS: ALBUMIN 2.6 GM/DL (3.4-5.0); ALKALINE PHOSPHATASE 134 U/L (45-117); ALT (GPT) 81 U/L (12-78); AST (GOT) 26 U/L (15-37); BICARBONATE 23.9 MEQ/L (21.0-32.0); CALCIUM 8.1 MG/DL (8.5-10.1); CHLORIDE 113 MEQ/L (98-107); CREATININE 1.01 MG/DL (0.60-1.30); GLOMERULAR FILTRATION RATE 64 ML/MIN (>89); GLUCOSE,RANDOM 91 MG/DL (74-106); SODIUM (NA) 148 MEQ/L (136-145); TOTAL BILIRUBIN ADULT 0.6 MG/DL (0.2-1.0); TOTAL PROTEIN 6.1 GM/DL (6.4-8.2)
[2017-09-24 06:01] LABS: BLOOD UREA NITROGEN 35 MG/DL (7-18)
[2017-09-24] MEDS: ARTIFICIAL TEARS OPTH SOLN 15 ML BTL EACH EYE SCH ×3 (06:01→22:00)
[2017-09-24] MEDS: FREE WATER G-TUBE SCH ×4 (06:45→23:01)
[2017-09-24] MEDS: CHLORHEXIDINE 0.12% (ORAL KIT) 15 ML CUP MT SCH ×2 (07:21→20:00)
[2017-09-24] MEDS: FUROSEMIDE 40 MG/4 ML VIAL IV PUSH SCH (07:43)
[2017-09-24] MEDS: ACETAMINOPHEN 650 MG/20.3 ML UDC NG PRN ×2 (07:43→20:06)
[2017-09-24] MEDS: fentaNYL DRIP 250 ML IV PRN (07:43)
--- NOTE | 2017-09-24 07:43 | PD.ORT.PN ---
Subjective Subjective Remarks POD 22 s/p ORIF bilateral wrists POD 1 s/p ORIF right proximal ulna s/p right clavicle fx trached. awake. moving. Objective Vitals Vital Signs Date Time Temp Pulse Resp B/P (MAP) Pulse Ox O2 Delivery O2 Flow Rate FiO2 09/24/17 06:00 73 09/24/17 05:08 98 50 09/24/17 04:00 40 09/24/17 04:00 99.7 87 25 115/83 (94) 99 09/24/17 04:00 79 09/24/17 02:31 100 50 09/24/17 02:00 79 09/24/17 00:00 97.9 68 14 108/55 (72) 100 09/24/17 00:00 40 09/24/17 00:00 88 09/23/17 23:46 100 50 09/23/17 22:00 88 09/23/17 20:47 95 50 09/23/17 20:00 98 09/23/17 20:00 40 09/23/17 20:00 101.0 98 22 170/100 (123) 94 09/23/17 19:40 96 50 09/23/17 17:25 100 100 09/23/17 16:00 40 09/23/17 16:00 100.2 101 28 155/69 (97) 92 09/23/17 16:00 101 09/23/17 14:00 78 09/23/17 12:00 74 09/23/17 12:00 99.9 74 19 100/53 (69) 99 09/23/17 12:00 40 09/23/17 11:30 100 40 09/23/17 10:00 84 09/23/17 08:16 100 40 09/23/17 08:00 40 09/23/17 08:00 101.2 90 21 115/59 (77) 100 09/23/17 08:00 90 I/O 09/23/17 09/23/17 09/23/17 09/24/17 09/24/17 09/24/17 07:00 15:00 23:00 07:00 15:00 23:00 Intake Total 796 ml 197 ml 932 ml 3002 ml Output Total 615 ml 1050 ml 800 ml Balance 181 ml 197 ml -118 ml 2202 ml Intake IV Total 355 ml 197 ml 752 ml 3002 ml Tube Feeding 411 ml 0 ml Tube Irrigant 30 ml 180 ml Output Urine Total 600 ml 950 ml 800 ml Chest Tube Drainage Total 15 ml 0 ml Estimated Blood Loss 100 ml # Bowel Movements 0 0 Result Diagram: 09/23/17 0700 09/24/17 0410 Imaging Last 24 hours Impressions Chest X-Ray 08/31/17 0000 Signed Impressions: Service Date/Time: Thursday, August 31, 2017 03:25 - CONCLUSION: 1. Multiple right-sided rib fractures with pulmonary parenchymal contusion. Developing bibasilar atelectatic changes. 2. Right-sided thoracostomy tube without pneumothorax. Appropriate positioning of the endotracheal and nasogastric tubes. 3. Right clavicular fracture. Adan Chambers MD Pelvis X-Ray 08/30/17 1521 Signed Impressions: Service Date/Time: Wednesday, August 30, 2017 15:21 - CONCLUSION: 1. Negative examination. Lucius Trevino MD Head CT 08/30/17 1521 Signed Impressions: Service Date/Time: Wednesday, August 30, 2017 16:06 - CONCLUSION: 1. No acute intracranial abnormality is identified. Lucius Trevino MD Chest X-Ray 08/30/17 1521 Signed Impressions: Service Date/Time: Wednesday, August 30, 2017 15:21 - CONCLUSION: 1. Multiple right rib fractures and right clavicle fracture with questionable right lung contusion and pneumothorax. Austin Jarquin MD Chest CT 08/30/17 1521 Signed Impressions: Service Date/Time: Wednesday, August 30, 2017 16:20 - CONCLUSION: 1. Fracture of the right third through ninth ribs. Some of the ribs are fractured in 2 [address]. 2. Small right-sided pneumothorax with parenchymal contusion. There is a right-sided chest tube already in good position. 3. Endotracheal tube in satisfactory position. 4. The aorta and great vessels appear intact. Lucius Trevino MD Cervical Spine CT 08/30/17 1521 Signed Impressions: Service Date/Time: Wednesday, August 30, 2017 16:09 - CONCLUSION: 1. Negative for fracture or subluxation of the cervical spine. No canal stenosis. 2. Endotracheal tube and right chest tube present. Right rib fractures. Austin Jarquin MD Abdomen/Pelvis CT 08/30/17 1521 Signed Impressions: Service Date/Time: Wednesday, August 30, 2017 16:20 - CONCLUSION: Numerous lower right rib fractures with small right pneumothorax and hemothorax and dependent consolidation in both lungs. Right chest tube present. No solid visceral injury identified within the abdomen or pelvis. No free air or free fluid. Austin Jarquin MD Objective Remarks RUE: +long arm splint. intact. good repair. good cap refill distally LUE: + Long arm splint. intact. +cap refill Assessment & Plan Assessment and Plan 1) Open fracture dislocation right elbow 2) Fracture right distal radius, intra-articular, comminuted. 3) Fracture left distal radius with distal radial ulnar joint dislocation ( Galeazzi variant) 4) Right Clavicle Fx POD 22 : ORIF right distal radius ORIF of left distal radius fx with pinning of DRUJ POD 1: ORIF right proximal ulnar with removal of exfix PLAN: NWB BUE maintain splint on bilateral arms at all times once patient is awake and alert, will plan for removal of splint on right arm to allow for motion will also plan on removal of DRUJ pin on left wrist possibly next week ortho surgeries complete at this time Marc Rivero/[employer] [facility] Sep 24, 2017 07:43
[2017-09-24] MEDS: FAMOTIDINE 20 MG TAB NG SCH ×2 (07:44→20:07)
[2017-09-24] MEDS: GABAPENTIN 250 MG/5 ML UDC NG SCH ×3 (07:44→17:07)
[2017-09-24] MEDS: SODIUM CHLORIDE 0.9% FLUSH 10 ML FLUSH IV FLUSH SCH ×2 (08:13→20:07)
[2017-09-24] MEDS: BISACODYL 10 MG SUPP RECTAL SCH (08:13)
[2017-09-24] MEDS: LACTULOSE SYRUP 20 GM/30 ML CUP PO SCH (08:13)
[2017-09-24] MEDS: DOCUSATE SODIUM 50 MG/SENNA 8.6 MG TAB PO SCH ×2 (08:13→20:07)
[2017-09-24] MEDS: MIDAZOLAM HCL 5 MG/5 ML VIAL IV PRN (08:47)
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
[2017-09-24] MEDS: cloNIDine HCL 0.3 MG TAB PO SCH ×3 (11:46→22:00)
[2017-09-24 12:18] LABS: HEMATOCRIT 22.6 % (39.0-51.0); HEMOGLOBIN 7.3 GM/DL (13.0-17.0); MEAN CELL VOLUME 88.3 FL (80.0-100.0); MEAN CORPUSCULAR HEMOGLOBIN 28.4 PG (27.0-34.0); MEAN CORPUSCULAR HGB CONC 32.2 % (32.0-36.0); MEAN PLATELET VOLUME 8.7 FL (7.0-11.0); PLATELET COUNT 498 TH/MM3 (150-450); RED BLOOD COUNT 2.56 MIL/MM3 (4.50-5.90); WHITE BLOOD COUNT 14.5 TH/MM3 (4.0-11.0)
[2017-09-24] MEDS: ENOXAPARIN SODIUM 30 MG/0.3 ML SYRINGE SQ SCH (13:58)
[2017-09-24 14:18] LABS: BACTERIA, URINE OCC /hpf; BILIRUBIN, URINE NEG (NEG); BLOOD, URINE MOD (NEG); GLUCOSE,URINE NEG (NEG); HYALINE CAST, URINE 21 /lpf (RARE); KETONE, URINE NEG (NEG); MUCUS URINE FEW /lpf (OCC); NITRITE,URINE NEG (NEG); PH, URINE 5.5 (5.0-8.5); URINE COLOR YELLOW (YELLW/STRAW); URINE LEUKOCYTE ESTERASE LARGE (NEG); WHITE BLOOD CELL CLUMPS OCC
[2017-09-24] MEDS: DEXMEDETOMIDINE INJ 1,000 MCG in SODIUM CHLORIDE 0.9% INJ 240 ML IV PRN (14:39)
[2017-09-24] MEDS: MELATONIN 5 MG TAB PO SCH (20:07)
[2017-09-25] VITALS (18 sets, daily range): BP systolic 106–172; BP diastolic 51–91; PULSE 48–99; RESP 15–37; TEMP 98.4–102.3; O2SAT 65–100
[2017-09-25] MEDS: oxyCODONE HCL ORAL CONC 5 MG/0.25 ML SYRINGE PO SCH ×6 (00:50→20:01)
[2017-09-25] MEDS: ENOXAPARIN SODIUM 30 MG/0.3 ML SYRINGE SQ SCH ×3 (02:26→17:31)
[2017-09-25] MEDS: CEFAZOLIN INJ 2,000 MG in SODIUM CHLORIDE 0.9% INJ 100 ML IV SCH ×4 (02:26→17:32)
[2017-09-25] MEDS: MORPHINE SULFATE 8 MG/ML INJ IV PUSH PRN ×4 (03:33→20:02)
[2017-09-25] MEDS: CHLORHEXIDINE GLUCONATE 2 % 1 PACK (2 CLOTHS) TOP SCH ×2 (03:46→19:18)
[2017-09-25] MEDS: MAGNESIUM HYDROXIDE SUSP 30 ML CUP PO SCH ×2 (03:46→17:00)
[2017-09-25] MEDS: cloNIDine HCL 0.3 MG TAB PO SCH ×3 (04:01→22:04)
[2017-09-25 04:59] LABS: MEAN CORPUSCULAR HEMOGLOBIN 28.7 PG (27.0-34.0); PLATELET COUNT 457 TH/MM3 (150-450); RED BLOOD COUNT 2.35 MIL/MM3 (4.50-5.90); RED CELL DISTRIBUTION WIDTH 14.2 % (11.6-17.2); WHITE BLOOD COUNT 13.2 TH/MM3 (4.0-11.0)
[2017-09-25] MEDS: ARTIFICIAL TEARS OPTH SOLN 15 ML BTL EACH EYE SCH ×3 (04:59→22:00)
[2017-09-25 05:28] LABS: HEMATOCRIT 20.5 % (39.0-51.0); HEMOGLOBIN 6.8 GM/DL (13.0-17.0)
[2017-09-25 05:46] LABS: ALBUMIN 2.4 GM/DL (3.4-5.0); ALKALINE PHOSPHATASE 168 U/L (45-117); ALT (GPT) 86 U/L (12-78); AST (GOT) 78 U/L (15-37); BICARBONATE 25.1 MEQ/L (21.0-32.0); BLOOD UREA NITROGEN 29 MG/DL (7-18); CALCIUM 8.1 MG/DL (8.5-10.1); CHLORIDE 109 MEQ/L (98-107); CREATININE 1.02 MG/DL (0.60-1.30); GLOMERULAR FILTRATION RATE 63 ML/MIN (>89); GLUCOSE,RANDOM 149 MG/DL (74-106); SODIUM (NA) 143 MEQ/L (136-145); TOTAL BILIRUBIN ADULT 0.5 MG/DL (0.2-1.0); TOTAL PROTEIN 6.5 GM/DL (6.4-8.2)
[2017-09-25] MEDS: QUEtiapine FUMARATE 25 MG TAB PO SCH ×3 (05:49→22:04)
[2017-09-25] MEDS: FREE WATER G-TUBE SCH ×3 (06:00→17:33)
[2017-09-25] MEDS: PROPRANOLOL HCL 40 MG TAB PO SCH ×2 (06:07)
[2017-09-25] MEDS ORDERED: SODIUM CHLOR 0.9% 250 ML INJ 250 ML IV ONE (06:45)
[2017-09-25] MEDS: CHLORHEXIDINE 0.12% (ORAL KIT) 15 ML CUP MT SCH ×2 (06:51→20:00)
--- NOTE | 2017-09-25 07:30 | PD.ORT.PN ---
Subjective Subjective Remarks Stable but continuing to be sedated Objective Vitals Vital Signs Date Time Temp Pulse Resp B/P (MAP) Pulse Ox O2 Delivery O2 Flow Rate FiO2 09/25/17 07:14 100.0 75 26 128/69 65 09/25/17 06:33 98.4 75 22 116/57 96 09/25/17 06:00 77 09/25/17 05:32 100 40 09/25/17 04:00 80 09/25/17 04:00 99.9 80 22 131/67 (88) 93 09/25/17 04:00 40 09/25/17 02:00 70 09/25/17 01:50 22 09/25/17 00:00 67 09/25/17 00:00 40 09/25/17 00:00 99.0 67 15 106/51 (69) 97 09/24/17 23:49 100 40 09/24/17 22:00 72 09/24/17 20:00 101.0 80 16 101/55 (70) 94 09/24/17 20:00 80 09/24/17 20:00 40 09/24/17 19:21 99 40 09/24/17 18:00 79 09/24/17 16:00 40 09/24/17 16:00 99.3 80 19 118/56 (76) 98 09/24/17 16:00 80 09/24/17 14:00 75 09/24/17 12:02 100 40 09/24/17 12:00 99.0 69 17 115/54 (74) 94 09/24/17 12:00 70 09/24/17 12:00 40 09/24/17 10:29 94 50 09/24/17 10:00 70 09/24/17 08:25 99 40 09/24/17 08:00 102.1 76 18 136/61 (86) 100 09/24/17 08:00 50 09/24/17 08:00 76 I/O 09/24/17 09/24/17 09/24/17 09/25/17 09/25/17 09/25/17 07:00 15:00 23:00 07:00 15:00 23:00 Intake Total 3002 ml 100 ml 1037 ml 1110 ml 450 ml Output Total 800 ml 2025.0 ml 500 ml Balance 2202 ml 100 ml -988.0 ml 610 ml 450 ml Intake IV Total 3002 ml 100 ml 120 ml Tube Feeding 137 ml 390 ml Packed Cells 400 ml Blood Product IV Normal Saline Flush 50 ml Other 900 ml 600 ml Output Urine Total 800 ml 2025 ml 500 ml Tube Feeding Residual Discard 0 ml 0 ml Chest Tube Drainage Total 0 ml 0 ml 0 ml # Bowel Movements 0 0 Result Diagram: 09/25/17 0436 09/25/17 0436 Imaging Last 24 hours Impressions Chest X-Ray 08/31/17 0000 Signed Impressions: Service Date/Time: Thursday, August 31, 2017 03:25 - CONCLUSION: 1. Multiple right-sided rib fractures with pulmonary parenchymal contusion. Developing bibasilar atelectatic changes. 2. Right-sided thoracostomy tube without pneumothorax. Appropriate positioning of the endotracheal and nasogastric tubes. 3. Right clavicular fracture. Adan Chambers MD Pelvis X-Ray 08/30/17 1521 Signed Impressions: Service Date/Time: Wednesday, August 30, 2017 15:21 - CONCLUSION: 1. Negative examination. Lucius Trevino MD Head CT 08/30/17 1521 Signed Impressions: Service Date/Time: Wednesday, August 30, 2017 16:06 - CONCLUSION: 1. No acute intracranial abnormality is identified. Lucius Trevino MD Chest X-Ray 08/30/17 1521 Signed Impressions: Service Date/Time: Wednesday, August 30, 2017 15:21 - CONCLUSION: 1. Multiple right rib fractures and right clavicle fracture with questionable right lung contusion and pneumothorax. Austin Jarquin MD Chest CT 08/30/17 1521 Signed Impressions: Service Date/Time: Wednesday, August 30, 2017 16:20 - CONCLUSION: 1. Fracture of the right third through ninth ribs. Some of the ribs are fractured in 2 places. 2. Small right-sided pneumothorax with parenchymal contusion. There is a right-sided chest tube already in good position. 3. Endotracheal tube in satisfactory position. 4. The aorta and great vessels appear intact. Lucius Trevino MD Cervical Spine CT 08/30/17 1521 Signed Impressions: Service Date/Time: Wednesday, August 30, 2017 16:09 - CONCLUSION: 1. Negative for fracture or subluxation of the cervical spine. No canal stenosis. 2. Endotracheal tube and right chest tube present. Right rib fractures. Austin Jarquin MD Abdomen/Pelvis CT 08/30/17 1521 Signed Impressions: Service Date/Time: Wednesday, August 30, 2017 16:20 - CONCLUSION: Numerous lower right rib fractures with small right pneumothorax and hemothorax and dependent consolidation in both lungs. Right chest tube present. No solid visceral injury identified within the abdomen or pelvis. No free air or free fluid. Austin Jarquin MD Objective Remarks RUE: +long arm splint. intact. good repair. good cap refill distally LUE: + Long arm splint. intact. +cap refill Assessment & Plan Assessment and Plan 1) Open fracture dislocation right elbow 2) Fracture right distal radius, intra-articular, comminuted. 3) Fracture left distal radius with distal radial ulnar joint dislocation ( Galeazzi variant) 4) Right Clavicle Fx POD 23 : ORIF right distal radius ORIF of left distal radius fx with pinning of DRUJ POD 2: ORIF right proximal ulnar with removal of exfix PLAN: NWB BUE maintain splint on bilateral arms at all times once patient is awake and alert, will plan for removal of splint on right arm to allow for motion will also plan on removal of DRUJ pin on left wrist possibly next week ortho surgeries complete at this time Wilman Barrios Jr. Sep 25, 2017 07:30
[2017-09-25] MEDS: DOCUSATE SODIUM 50 MG/SENNA 8.6 MG TAB PO SCH ×2 (07:55→19:58)
[2017-09-25] MEDS: LACTULOSE SYRUP 20 GM/30 ML CUP PO SCH (07:55)
[2017-09-25] MEDS: FAMOTIDINE 20 MG TAB NG SCH ×2 (07:55→20:00)
[2017-09-25] MEDS: cefTRIAXone INJ 1,000 MG in SODIUM CHLORIDE 0.9% INJ 100 ML IV SCH (07:55)
[2017-09-25] MEDS: BISACODYL 10 MG SUPP RECTAL SCH (07:56)
[2017-09-25] MEDS: SODIUM CHLORIDE 0.9% FLUSH 10 ML FLUSH IV FLUSH SCH ×2 (07:56→20:02)
[2017-09-25] MEDS: GABAPENTIN 250 MG/5 ML UDC NG SCH ×3 (07:56→17:33)
[2017-09-25] MEDS: FUROSEMIDE 40 MG/4 ML VIAL IV PUSH SCH (07:56)
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
[2017-09-25 12:03] LABS: HEMATOCRIT 25.7 % (39.0-51.0); HEMOGLOBIN 8.4 GM/DL (13.0-17.0); MEAN CELL VOLUME 85.5 FL (80.0-100.0); MEAN CORPUSCULAR HEMOGLOBIN 28.1 PG (27.0-34.0); MEAN CORPUSCULAR HGB CONC 32.8 % (32.0-36.0); MEAN PLATELET VOLUME 8.9 FL (7.0-11.0); PLATELET COUNT 498 TH/MM3 (150-450); RED CELL DISTRIBUTION WIDTH 14.3 % (11.6-17.2); WHITE BLOOD COUNT 16.5 TH/MM3 (4.0-11.0)
[2017-09-25] MEDS: PROPRANOLOL HCL 20 MG TAB PO SCH ×2 (12:55→17:32)
[2017-09-25] MEDS: DEXMEDETOMIDINE INJ 1,000 MCG in SODIUM CHLORIDE 0.9% INJ 240 ML IV PRN (12:56)
[2017-09-25] MEDS ORDERED: FLUCONAZOLE 200 MG TAB PO ONE (14:00)
--- NOTE | 2017-09-25 14:47 | RADRPT ---
EXAM DATE/TIME: 09/25/2017 14:12 [facility] COMPARISON: CHEST SINGLE AP, September 23, 2017, 5:01. INDICATIONS : Evaluate for pneumothorax. MEDICAL HISTORY : None. SURGICAL HISTORY : None. ENCOUNTER: Subsequent ACUITY: 3 weeks PAIN SCORE: Non-responsive. LOCATION: chest FINDINGS: Portable AP view of the chest demonstrates a normal-sized cardiac silhouette. Tracheostomy and nasoga stric tube remain present. 2 tubes overlie the right chest in stable position. No pneumothorax is vis ualized. There are mild bibasilar opacities. No pleural effusion is seen. Bones demonstrate a stable appearance with right rib fractures. CONCLUSION: 1. 2 right chest tubes remain present and in stable location and no pneumothorax is visualized. 2. Stable bibasilar airspace opacities. Gray Hopkins MD on September 25, 2017 at 14:41 Board Certified Radiologist. This report was verified electronically.
[2017-09-25] MEDS: MELATONIN 5 MG TAB PO SCH (20:00)
[2017-09-25] MEDS: ACETAMINOPHEN 650 MG/20.3 ML UDC NG PRN (20:01)
[2017-09-26] VITALS (18 sets, daily range): BP systolic 102–138; BP diastolic 57–71; PULSE 68–88; RESP 12–25; TEMP 99.1–101.6; O2SAT 90–100
[2017-09-26] MEDS: oxyCODONE HCL ORAL CONC 5 MG/0.25 ML SYRINGE PO SCH ×6 (00:14→20:09)
[2017-09-26] MEDS: PROPRANOLOL HCL 20 MG TAB PO SCH ×4 (00:14→17:50)
[2017-09-26] MEDS: MORPHINE SULFATE 8 MG/ML INJ IV PUSH PRN (04:12)
--- NOTE | 2017-09-26 04:38 | RADRPT ---
EXAM DATE/TIME: 09/26/2017 03:17 [facility] COMPARISON: CHEST SINGLE AP, September 25, 2017, 14:12. INDICATIONS : Evaluate for pneumothorax. Shortness of breath. MEDICAL HISTORY : None. SURGICAL HISTORY : None. ENCOUNTER: Subsequent ACUITY: 1 month PAIN SCORE: Non-responsive. LOCATION: chest FINDINGS: Tracheostomy and nasogastric tube are stable. There has been interval removal of thoracostomy tubes t here is no evidence of pneumothorax. There is mild scarring or atelectasis in the right lung base and diffuse mild interstitial thickening elsewhere in both lungs. Cardiac contours are grossly stable. CONCLUSION: Thoracostomy tube removal without evidence of pneumothorax. Otherwise stable chest Gray Jimenez MD on September 26, 2017 at 4:34 Board Certified Radiologist. This report was verified electronically.
[2017-09-26] MEDS: MAGNESIUM HYDROXIDE SUSP 30 ML CUP PO SCH ×2 (04:41→17:00)
[2017-09-26] MEDS: ARTIFICIAL TEARS OPTH SOLN 15 ML BTL EACH EYE SCH ×3 (06:00→22:00)
[2017-09-26] MEDS: FREE WATER G-TUBE SCH ×4 (06:00→17:50)
[2017-09-26] MEDS: cloNIDine HCL 0.3 MG TAB PO SCH ×3 (06:10→20:08)
[2017-09-26] MEDS: QUEtiapine FUMARATE 25 MG TAB PO SCH ×3 (06:10→20:08)
[2017-09-26] MEDS: DEXMEDETOMIDINE INJ 1,000 MCG in SODIUM CHLORIDE 0.9% INJ 240 ML IV PRN (06:11)
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
[2017-09-26] MEDS: CHLORHEXIDINE 0.12% (ORAL KIT) 15 ML CUP MT SCH ×2 (08:00→20:00)
[2017-09-26] MEDS: cefTRIAXone INJ 1,000 MG in SODIUM CHLORIDE 0.9% INJ 100 ML IV SCH (08:20)
[2017-09-26] MEDS: FAMOTIDINE 20 MG TAB NG SCH ×2 (08:20→20:08)
[2017-09-26] MEDS: FLUCONAZOLE 100 MG TAB PO SCH (08:20)
[2017-09-26] MEDS: GABAPENTIN 250 MG/5 ML UDC NG SCH ×3 (08:21→17:50)
[2017-09-26] MEDS: FUROSEMIDE 40 MG/4 ML VIAL IV PUSH SCH (08:21)
[2017-09-26] MEDS: LACTULOSE SYRUP 20 GM/30 ML CUP PO SCH (09:00)
[2017-09-26] MEDS: BISACODYL 10 MG SUPP RECTAL SCH (09:00)
[2017-09-26] MEDS: DOCUSATE SODIUM 50 MG/SENNA 8.6 MG TAB PO SCH ×2 (09:00→20:07)
[2017-09-26] MEDS: SODIUM CHLORIDE 0.9% FLUSH 10 ML FLUSH IV FLUSH SCH ×2 (09:00→21:00)
[2017-09-26] MEDS: MORPHINE SULFATE 4 MG/ML INJ IV PUSH PRN ×2 (11:03→14:02)
[2017-09-26] MEDS: CEFAZOLIN INJ 2,000 MG in SODIUM CHLORIDE 0.9% INJ 100 ML IV SCH ×3 (11:03→17:50)
[2017-09-26 11:57] LABS: HEMATOCRIT 26.2 % (39.0-51.0); HEMOGLOBIN 8.6 GM/DL (13.0-17.0); MEAN CELL VOLUME 86.6 FL (80.0-100.0); MEAN CORPUSCULAR HEMOGLOBIN 28.3 PG (27.0-34.0); MEAN CORPUSCULAR HGB CONC 32.7 % (32.0-36.0); PLATELET COUNT 454 TH/MM3 (150-450); RED BLOOD COUNT 3.02 MIL/MM3 (4.50-5.90); RED CELL DISTRIBUTION WIDTH 14.4 % (11.6-17.2); WHITE BLOOD COUNT 14.4 TH/MM3 (4.0-11.0)
[2017-09-26 12:21] LABS: ALBUMIN 2.6 GM/DL (3.4-5.0); AST (GOT) 46 U/L (15-37); BICARBONATE 28.5 MEQ/L (21.0-32.0); BLOOD UREA NITROGEN 20 MG/DL (7-18); CALCIUM 8.5 MG/DL (8.5-10.1); CHLORIDE 103 MEQ/L (98-107); CREATININE 0.86 MG/DL (0.60-1.30); GLOMERULAR FILTRATION RATE 77 ML/MIN (>89); GLUCOSE,RANDOM 121 MG/DL (74-106); SODIUM (NA) 139 MEQ/L (136-145)
[2017-09-26 12:25] LABS: ALKALINE PHOSPHATASE 196 U/L (45-117); ALT (GPT) 52 U/L (12-78); TOTAL BILIRUBIN ADULT 0.4 MG/DL (0.2-1.0); TOTAL PROTEIN 6.9 GM/DL (6.4-8.2)
[2017-09-26] MEDS: ACETAMINOPHEN 650 MG/20.3 ML UDC NG PRN (12:50)
--- NOTE | 2017-09-26 14:30 | PD.ORT.PN ---
Subjective Subjective Remarks POD 24 s/p ORIF bilateral wrists POD 3 s/p ORIF right proximal ulna s/p right clavicle fx trached. awake. moving. Objective Vitals Vital Signs Date Time Temp Pulse Resp B/P (MAP) Pulse Ox O2 Delivery O2 Flow Rate FiO2 09/26/17 12:00 40 09/26/17 12:00 80 09/26/17 12:00 101.6 80 25 134/71 (92) 96 09/26/17 10:00 81 09/26/17 08:11 96 40 09/26/17 08:00 76 09/26/17 08:00 99.1 76 21 138/63 (88) 99 09/26/17 08:00 40 09/26/17 07:30 90 T-piece 28 09/26/17 06:00 78 09/26/17 04:32 100 40 09/26/17 04:00 99.3 70 20 102/67 (79) 100 09/26/17 04:00 70 09/26/17 04:00 40 09/26/17 02:00 68 09/26/17 00:01 97 35 09/26/17 00:00 40 09/26/17 00:00 99.2 68 12 127/64 (85) 96 09/26/17 00:00 68 09/25/17 22:00 70 09/25/17 20:00 92 09/25/17 20:00 102.3 92 27 172/91 (118) 93 09/25/17 20:00 40 09/25/17 19:49 96 35 09/25/17 18:00 80 09/25/17 16:00 40 09/25/17 16:00 79 09/25/17 16:00 100.4 78 19 154/67 (96) 95 I/O 09/25/17 09/25/17 09/25/17 09/26/17 09/26/17 09/26/17 07:00 15:00 23:00 07:00 15:00 23:00 Intake Total 1110 ml 1150 ml 501 ml 1460 ml Output Total 500 ml 1550.0 ml 150 ml 275 ml 650 ml Balance 610 ml -400.0 ml 351 ml 1185 ml -650 ml Intake IV Total 120 ml 100 ml 100 ml 400 ml Tube Feeding 390 ml 401 ml 460 ml Packed Cells 400 ml Blood Product IV Normal Saline Flush 50 ml Other 600 ml 600 ml 600 ml Output Urine Total 500 ml 1550 ml 150 ml 275 ml 650 ml Tube Feeding Residual Discard 0 ml 0 ml 0 ml Chest Tube Drainage Total 0 ml Bladder Scan Volume Amount 280 ml 650 ml # Bowel Movements 0 0 0 0 0 Result Diagram: 09/26/17 1143 09/26/17 1143 Imaging Last 24 hours Impressions Chest X-Ray 08/31/17 0000 Signed Impressions: Service Date/Time: Thursday, August 31, 2017 03:25 - CONCLUSION: 1. Multiple right-sided rib fractures with pulmonary parenchymal contusion. Developing bibasilar atelectatic changes. 2. Right-sided thoracostomy tube without pneumothorax. Appropriate positioning of the endotracheal and nasogastric tubes. 3. Right clavicular fracture. Adan Chambers MD Pelvis X-Ray 08/30/17 1521 Signed Impressions: Service Date/Time: Wednesday, August 30, 2017 15:21 - CONCLUSION: 1. Negative examination. Lucius Trevino MD Head CT 08/30/17 1521 Signed Impressions: Service Date/Time: Wednesday, August 30, 2017 16:06 - CONCLUSION: 1. No acute intracranial abnormality is identified. Lucius Trevino MD Chest X-Ray 08/30/17 1521 Signed Impressions: Service Date/Time: Wednesday, August 30, 2017 15:21 - CONCLUSION: 1. Multiple right rib fractures and right clavicle fracture with questionable right lung contusion and pneumothorax. Austin Jarquin MD Chest CT 08/30/17 1521 Signed Impressions: Service Date/Time: Wednesday, August 30, 2017 16:20 - CONCLUSION: 1. Fracture of the right third through ninth ribs. Some of the ribs are fractured in 2 places. 2. Small right-sided pneumothorax with parenchymal contusion. There is a right-sided chest tube already in good position. 3. Endotracheal tube in satisfactory position. 4. The aorta and great vessels appear intact. Lucius Trevino MD Cervical Spine CT 08/30/17 1521 Signed Impressions: Service Date/Time: Wednesday, August 30, 2017 16:09 - CONCLUSION: 1. Negative for fracture or subluxation of the cervical spine. No canal stenosis. 2. Endotracheal tube and right chest tube present. Right rib fractures. Austin Jarquin MD Abdomen/Pelvis CT 08/30/17 1521 Signed Impressions: Service Date/Time: Wednesday, August 30, 2017 16:20 - CONCLUSION: Numerous lower right rib fractures with small right pneumothorax and hemothorax and dependent consolidation in both lungs. Right chest tube present. No solid visceral injury identified within the abdomen or pelvis. No free air or free fluid. Austin Jarquin MD Objective Remarks RUE: +long arm splint. intact. good repair. good cap refill distally. spling removed. incisions visualized. healing well. no erythema. LUE: + Long arm splint. intact. +cap refill. splint removed and incisions visualized. healed well. perc pin in place at wrist. Assessment & Plan Assessment and Plan 1) Open fracture dislocation right elbow 2) Fracture right distal radius, intra-articular, comminuted. 3) Fracture left distal radius with distal radial ulnar joint dislocation ( Galeazzi variant) 4) Right Clavicle Fx POD 24 : ORIF right distal radius ORIF of left distal radius fx with pinning of DRUJ POD 3: ORIF right proximal ulnar with removal of exfix PLAN: bilateral splints removed at bedside today and left wrist perc pin removed. deny removed from bilateral wrists at bedside bilateral arms re-splinted. NWB plan is for patient to be discharged to [facility] over weekend we will follow patient while there and plan to remove the splints while there. otherwise, maintain splints. ortho clear for discharge to [facility] Marc Rivero/[employer] ELKE Sep 26, 2017 14:30
[2017-09-26] MEDS: ENOXAPARIN SODIUM 30 MG/0.3 ML SYRINGE SQ SCH (15:58)
[2017-09-26] MEDS: MELATONIN 5 MG TAB PO SCH (20:08)
[2017-09-27] VITALS (19 sets, daily range): BP systolic 115–150; BP diastolic 56–91; PULSE 68–86; RESP 13–24; TEMP 99–100; O2SAT 95–100
[2017-09-27] MEDS: PROPRANOLOL HCL 20 MG TAB PO SCH ×5 (00:02→23:41)
[2017-09-27] MEDS: oxyCODONE HCL ORAL CONC 5 MG/0.25 ML SYRINGE PO SCH ×7 (00:02→23:42)
[2017-09-27] MEDS: CHLORHEXIDINE GLUCONATE 2 % 1 PACK (2 CLOTHS) TOP SCH (04:00)
[2017-09-27] MEDS: MORPHINE SULFATE 4 MG/ML INJ IV PUSH PRN (04:52)
[2017-09-27] MEDS: MAGNESIUM HYDROXIDE SUSP 30 ML CUP PO SCH ×2 (04:52→17:01)
[2017-09-27] MEDS: ENOXAPARIN SODIUM 30 MG/0.3 ML SYRINGE SQ SCH ×2 (04:52→14:41)
[2017-09-27] MEDS: cloNIDine HCL 0.3 MG TAB PO SCH ×3 (04:53→20:43)
[2017-09-27] MEDS: QUEtiapine FUMARATE 25 MG TAB PO SCH ×3 (04:53→20:43)
[2017-09-27] MEDS: FREE WATER G-TUBE SCH ×5 (04:54→23:42)
[2017-09-27] MEDS: ARTIFICIAL TEARS OPTH SOLN 15 ML BTL EACH EYE SCH ×3 (04:54→20:43)
[2017-09-27] MEDS: cefTRIAXone INJ 1,000 MG in SODIUM CHLORIDE 0.9% INJ 100 ML IV SCH (05:36)
[2017-09-27 06:29] LABS: ALBUMIN 2.5 GM/DL (3.4-5.0); AST (GOT) 55 U/L (15-37); BICARBONATE 31.2 MEQ/L (21.0-32.0); BLOOD UREA NITROGEN 16 MG/DL (7-18); CALCIUM 8.3 MG/DL (8.5-10.1); CHLORIDE 101 MEQ/L (98-107); CREATININE 0.76 MG/DL (0.60-1.30); GLOMERULAR FILTRATION RATE 88 ML/MIN (>89); GLUCOSE,RANDOM 134 MG/DL (74-106); HEMOGLOBIN 8.1 GM/DL (13.0-17.0); MEAN CELL VOLUME 86.6 FL (80.0-100.0); MEAN CORPUSCULAR HEMOGLOBIN 28.2 PG (27.0-34.0); MEAN CORPUSCULAR HGB CONC 32.5 % (32.0-36.0); MEAN PLATELET VOLUME 9.6 FL (7.0-11.0); PLATELET COUNT 441 TH/MM3 (150-450); RED BLOOD COUNT 2.88 MIL/MM3 (4.50-5.90); RED CELL DISTRIBUTION WIDTH 14.7 % (11.6-17.2); SODIUM (NA) 139 MEQ/L (136-145); WHITE BLOOD COUNT 16.5 TH/MM3 (4.0-11.0)
[2017-09-27 06:31] LABS: ALT (GPT) 52 U/L (12-78)
[2017-09-27 06:33] LABS: ALKALINE PHOSPHATASE 172 U/L (45-117); TOTAL BILIRUBIN ADULT 0.4 MG/DL (0.2-1.0); TOTAL PROTEIN 6.8 GM/DL (6.4-8.2)
[2017-09-27] MEDS: CHLORHEXIDINE 0.12% (ORAL KIT) 15 ML CUP MT SCH ×2 (08:32→20:00)
[2017-09-27] MEDS: FUROSEMIDE 40 MG/4 ML VIAL IV PUSH SCH (08:33)
[2017-09-27] MEDS: SODIUM CHLORIDE 0.9% FLUSH 10 ML FLUSH IV FLUSH SCH ×2 (08:33→21:00)
[2017-09-27] MEDS: FAMOTIDINE 20 MG TAB NG SCH ×2 (08:34→20:43)
[2017-09-27] MEDS: GABAPENTIN 250 MG/5 ML UDC NG SCH ×3 (08:34→17:01)
[2017-09-27] MEDS: DOCUSATE SODIUM 50 MG/SENNA 8.6 MG TAB PO SCH ×2 (08:34→20:42)
[2017-09-27] MEDS: LACTULOSE SYRUP 20 GM/30 ML CUP PO SCH (08:34)
[2017-09-27] MEDS: FLUCONAZOLE 100 MG TAB PO SCH (08:35)
[2017-09-27] MEDS: BISACODYL 10 MG SUPP RECTAL SCH (08:35)
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
[2017-09-27] MEDS: MELATONIN 5 MG TAB PO SCH (20:43)
[2017-09-27] MEDS ORDERED: QUEtiapine FUMARATE 25 MG TAB PO SCH (21:00)
[2017-09-28] VITALS (15 sets, daily range): BP systolic 101–144; BP diastolic 59–80; PULSE 62–76; RESP 18–26; TEMP 98.9–99.4; O2SAT 93–100
[2017-09-28] MEDS: ENOXAPARIN SODIUM 30 MG/0.3 ML SYRINGE SQ SCH ×2 (03:52→15:49)
[2017-09-28] MEDS: CHLORHEXIDINE GLUCONATE 2 % 1 PACK (2 CLOTHS) TOP SCH (03:52)
[2017-09-28] MEDS: MAGNESIUM HYDROXIDE SUSP 30 ML CUP PO SCH ×2 (03:53→15:49)
[2017-09-28] MEDS: oxyCODONE HCL ORAL CONC 5 MG/0.25 ML SYRINGE PO SCH ×2 (03:53→07:51)
[2017-09-28] MEDS: cloNIDine HCL 0.3 MG TAB PO SCH ×3 (05:54→22:05)
[2017-09-28] MEDS: QUEtiapine FUMARATE 25 MG TAB PO SCH (05:54)
[2017-09-28] MEDS: FREE WATER G-TUBE SCH ×3 (05:54→17:30)
[2017-09-28] MEDS: ARTIFICIAL TEARS OPTH SOLN 15 ML BTL EACH EYE SCH ×3 (05:54→22:00)
[2017-09-28] MEDS: PROPRANOLOL HCL 20 MG TAB PO SCH ×3 (05:54→17:30)
[2017-09-28 06:49] LABS: MEAN CELL VOLUME 85.9 FL (80.0-100.0); MEAN CORPUSCULAR HEMOGLOBIN 28.6 PG (27.0-34.0); MEAN CORPUSCULAR HGB CONC 33.3 % (32.0-36.0); MEAN PLATELET VOLUME 10.5 FL (7.0-11.0); PLATELET COUNT 535 TH/MM3 (150-450); RED BLOOD COUNT 3.49 MIL/MM3 (4.50-5.90); RED CELL DISTRIBUTION WIDTH 14.8 % (11.6-17.2); WHITE BLOOD COUNT 18.8 TH/MM3 (4.0-11.0)
[2017-09-28 07:07] LABS: ALBUMIN 2.7 GM/DL (3.4-5.0); ALKALINE PHOSPHATASE 178 U/L (45-117); ALT (GPT) 68 U/L (12-78); AST (GOT) 81 U/L (15-37); BICARBONATE 31.1 MEQ/L (21.0-32.0); BLOOD UREA NITROGEN 18 MG/DL (7-18); CALCIUM 8.7 MG/DL (8.5-10.1); CHLORIDE 100 MEQ/L (98-107); CREATININE 0.82 MG/DL (0.60-1.30); GLOMERULAR FILTRATION RATE 81 ML/MIN (>89); GLUCOSE,RANDOM 141 MG/DL (74-106); SODIUM (NA) 139 MEQ/L (136-145); TOTAL BILIRUBIN ADULT 0.5 MG/DL (0.2-1.0); TOTAL PROTEIN 7.5 GM/DL (6.4-8.2)
[2017-09-28] MEDS: FUROSEMIDE 40 MG/4 ML VIAL IV PUSH SCH (07:51)
[2017-09-28] MEDS: FAMOTIDINE 20 MG TAB NG SCH ×2 (07:51→22:05)
[2017-09-28] MEDS: GABAPENTIN 250 MG/5 ML UDC NG SCH ×3 (07:51→17:30)
[2017-09-28] MEDS: SODIUM CHLORIDE 0.9% FLUSH 10 ML FLUSH IV FLUSH SCH ×2 (07:52→22:05)
[2017-09-28] MEDS: DOCUSATE SODIUM 50 MG/SENNA 8.6 MG TAB PO SCH ×2 (07:52→21:00)
[2017-09-28] MEDS: BISACODYL 10 MG SUPP RECTAL SCH (07:52)
[2017-09-28] MEDS: FLUCONAZOLE 100 MG TAB PO SCH (07:52)
[2017-09-28] MEDS: LACTULOSE SYRUP 20 GM/30 ML CUP PO SCH (07:52)
[2017-09-28] MEDS: CHLORHEXIDINE 0.12% (ORAL KIT) 15 ML CUP MT SCH (07:54)
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
[2017-09-28] MEDS ORDERED: MORPHINE SULFATE 2 MG/ML SYRINGE IV PUSH PRN (08:45)
[2017-09-28] MEDS ORDERED: oxyCODONE HCL ORAL CONC 5 MG/0.25 ML SYRINGE PO PRN (09:00)
[2017-09-28] MEDS ORDERED: PILL SPLITTER OTHER PRN (11:30)
[2017-09-28] MEDS ORDERED: DOXAZOSIN MESYLATE 4 MG TAB PO SCH (12:00)
[2017-09-28] MEDS: DOXAZOSIN MESYLATE 2 MG TAB PO SCH (13:08)
[2017-09-28] MEDS ORDERED: QUEtiapine FUMARATE 25 MG TAB PO SCH (21:00)
[2017-09-28] MEDS: MELATONIN 5 MG TAB PO SCH (22:04)
[2017-09-29] VITALS (15 sets, daily range): BP systolic 103–119; BP diastolic 51–72; PULSE 62–79; RESP 20–25; TEMP 98–98.7; O2SAT 95–100
[2017-09-29] MEDS: PROPRANOLOL HCL 20 MG TAB PO SCH ×4 (01:07→17:27)
[2017-09-29] MEDS: CHLORHEXIDINE GLUCONATE 2 % 1 PACK (2 CLOTHS) TOP SCH ×2 (04:00→07:16)
[2017-09-29] MEDS: MAGNESIUM HYDROXIDE SUSP 30 ML CUP PO SCH ×2 (05:00→16:56)
[2017-09-29 05:23] LABS: HEMATOCRIT 29.9 % (39.0-51.0); HEMOGLOBIN 9.6 GM/DL (13.0-17.0); MEAN CELL VOLUME 86.1 FL (80.0-100.0); MEAN CORPUSCULAR HEMOGLOBIN 27.6 PG (27.0-34.0); MEAN CORPUSCULAR HGB CONC 32.1 % (32.0-36.0); MEAN PLATELET VOLUME 9.6 FL (7.0-11.0); PLATELET COUNT 576 TH/MM3 (150-450); RED BLOOD COUNT 3.48 MIL/MM3 (4.50-5.90); RED CELL DISTRIBUTION WIDTH 14.5 % (11.6-17.2); WHITE BLOOD COUNT 16.4 TH/MM3 (4.0-11.0)
[2017-09-29] MEDS: FREE WATER G-TUBE SCH ×4 (06:00→17:26)
[2017-09-29] MEDS: cloNIDine HCL 0.3 MG TAB PO SCH ×2 (06:00→13:03)
[2017-09-29] MEDS: ARTIFICIAL TEARS OPTH SOLN 15 ML BTL EACH EYE SCH ×2 (06:00→13:04)
[2017-09-29 06:05] LABS: ALBUMIN 2.7 GM/DL (3.4-5.0); ALKALINE PHOSPHATASE 179 U/L (45-117); ALT (GPT) 110 U/L (12-78); AST (GOT) 80 U/L (15-37); BICARBONATE 28.6 MEQ/L (21.0-32.0); BLOOD UREA NITROGEN 19 MG/DL (7-18); CALCIUM 8.5 MG/DL (8.5-10.1); CHLORIDE 102 MEQ/L (98-107); CREATININE 0.84 MG/DL (0.60-1.30); GLOMERULAR FILTRATION RATE 79 ML/MIN (>89); GLUCOSE,RANDOM 166 MG/DL (74-106); SODIUM (NA) 139 MEQ/L (136-145); TOTAL BILIRUBIN ADULT 0.4 MG/DL (0.2-1.0); TOTAL PROTEIN 7.4 GM/DL (6.4-8.2)
[2017-09-29] MEDS: ENOXAPARIN SODIUM 30 MG/0.3 ML SYRINGE SQ SCH ×2 (06:13→16:00)
[2017-09-29] MEDS: CHLORHEXIDINE 0.12% (ORAL KIT) 15 ML CUP MT SCH ×2 (07:15→08:19)
[2017-09-29] MEDS: SODIUM CHLORIDE 0.9% FLUSH 10 ML FLUSH IV FLUSH SCH (08:15)
[2017-09-29] MEDS: FUROSEMIDE 40 MG/4 ML VIAL IV PUSH SCH (08:16)
[2017-09-29] MEDS: FAMOTIDINE 20 MG TAB NG SCH (08:17)
[2017-09-29] MEDS: DOXAZOSIN MESYLATE 2 MG TAB PO SCH (08:17)
[2017-09-29] MEDS: GABAPENTIN 250 MG/5 ML UDC NG SCH ×3 (08:17→17:27)
[2017-09-29] MEDS: FLUCONAZOLE 100 MG TAB PO SCH (08:17)
[2017-09-29] MEDS: DOCUSATE SODIUM 50 MG/SENNA 8.6 MG TAB PO SCH (08:18)
[2017-09-29] MEDS: LACTULOSE SYRUP 20 GM/30 ML CUP PO SCH (08:18)
[2017-09-29] MEDS: BISACODYL 10 MG SUPP RECTAL SCH (08:18)
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
[2017-09-29] MEDS ORDERED: PROP20TA3 PO (13:04)
[2017-09-29] MEDS ORDERED: CARD2TAB PO (13:04)
[2017-09-29] MEDS ORDERED: Lactulose Liq PO (13:04)
[2017-09-29] MEDS ORDERED: SERO25TA PO (13:04)
[2017-09-29] MEDS ORDERED: FAMO20TA2 NG (13:04)
[2017-09-29] MEDS ORDERED: DIFL100T PO (13:04)
[2017-09-29] MEDS ORDERED: GABA250S NG (13:04)
[2017-09-29] MEDS ORDERED: MELA5 PO (13:04)
[2017-09-29] MEDS ORDERED: CLON-481 PO (13:04)
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
== END 2017-09-29 20:43 | DRG 3 ==
LOC: NEPI 15:19 → NEDA 16:29 → EDBD 16:29 → N03A 17:01
PROVIDERS: ADMIT Internal Medicine Critical Care Medicine; ATTEND Internal Medicine Critical Care Medicine
PROC: 0PSK35Z Reposition Right Ulna with External Fixation Device, Percutaneous Approach (ICD-10-PCS; 2017-08-30)
PROC: 0PSJ04Z Reposition Left Radius with Internal Fixation Device, Open Approach (ICD-10-PCS; 2017-08-30)
PROC: 0PSL04Z Reposition Left Ulna with Internal Fixation Device, Open Approach (ICD-10-PCS; 2017-08-30)
PROC: 5A1955Z Respiratory Ventilation, Greater than 96 Consecutive Hours (ICD-10-PCS; 2017-08-30)
PROC: 0W9930Z Drainage of Right Pleural Cavity with Drainage Device, Percutaneous Approach (ICD-10-PCS; 2017-08-30)
PROC: 0PSJXZZ Reposition Left Radius, External Approach (ICD-10-PCS; 2017-08-30)
PROC: 0BH17EZ Insertion of Endotracheal Airway into Trachea, Via Natural or Artificial Opening (ICD-10-PCS; 2017-08-30)
PROC: 0PSH35Z Reposition Right Radius with External Fixation Device, Percutaneous Approach (ICD-10-PCS; 2017-08-30 18:54)
PROC: 0PW Upper Bones, Revision (ICD-10-PCS; 2017-09-02)
PROC: 0PSH04Z Reposition Right Radius with Internal Fixation Device, Open Approach (ICD-10-PCS; principal; 2017-09-02 12:12)
PROC: 0W9930Z Drainage of Right Pleural Cavity with Drainage Device, Percutaneous Approach (ICD-10-PCS; 2017-09-04)
PROC: 0WP8X0Z Removal of Drainage Device from Chest Wall, External Approach (ICD-10-PCS; 2017-09-04)
PROC: 30233N1 Transfusion of Nonautologous Red Blood Cells into Peripheral Vein, Percutaneous Approach (ICD-10-PCS; 2017-09-05)
PROC: 0W9930Z Drainage of Right Pleural Cavity with Drainage Device, Percutaneous Approach (ICD-10-PCS; 2017-09-05)
PROC: 0BC78ZZ Extirpation of Matter from Left Main Bronchus, Via Natural or Artificial Opening Endoscopic (ICD-10-PCS; 2017-09-08)
PROC: 0BC38ZZ Extirpation of Matter from Right Main Bronchus, Via Natural or Artificial Opening Endoscopic (ICD-10-PCS; 2017-09-08)
PROC: 0W9930Z Drainage of Right Pleural Cavity with Drainage Device, Percutaneous Approach (ICD-10-PCS; 2017-09-08)
PROC: 0B113F4 Bypass Trachea to Cutaneous with Tracheostomy Device, Percutaneous Approach (ICD-10-PCS; 2017-09-17)
PROC: 0BJ08ZZ Inspection of Tracheobronchial Tree, Via Natural or Artificial Opening Endoscopic (ICD-10-PCS; 2017-09-17)
PROC: 0PSK04Z Reposition Right Ulna with Internal Fixation Device, Open Approach (ICD-10-PCS; 2017-09-23)
PROC: 0PSHXZZ Reposition Right Radius, External Approach (ICD-10-PCS; 2017-09-23)
PROC: 0PPHX5Z Removal of External Fixation Device from Right Radius, External Approach (ICD-10-PCS; 2017-09-23)
PROC: 0PP Upper Bones, Removal (ICD-10-PCS; 2017-09-23)
DX: S22.5XXA Flail chest, initial encounter for closed fracture (principal); J15.212 Pneumonia due to Methicillin resistant Staphylococcus aureus; G92 Toxic encephalopathy; S27.2XXA Traumatic hemopneumothorax, initial encounter; E87.3 Alkalosis; T17.590A Other foreign object in bronchus causing asphyxiation, initial encounter; T17.918A Gastric contents in respiratory tract, part unspecified causing other injury, initial encounter; S52.021B Displaced fracture of olecranon process without intraarticular extension of right ulna, initial encounter for open fracture type I or II; J96.01 Acute respiratory failure with hypoxia; T79.7XXA Traumatic subcutaneous emphysema, initial encounter; S52.612A Displaced fracture of left ulna styloid process, initial encounter for closed fracture; J98.11 Atelectasis; S52.372A Galeazzi's fracture of left radius, initial encounter for closed fracture; J95.812 Postprocedural air leak; B37.49 Other urogenital candidiasis; E87.70 Fluid overload, unspecified; S62.626A Displaced fracture of middle phalanx of right little finger, initial encounter for closed fracture; S42.001A Fracture of unspecified part of right clavicle, initial encounter for closed fracture; V29.9XXA Motorcycle rider (driver) (passenger) injured in unspecified traffic accident, initial encounter; Y92.488 Other paved roadways as the place of occurrence of the external cause; Y93.89 Activity, other specified; Y99.9 Unspecified external cause status; S53.104A Unspecified dislocation of right ulnohumeral joint, initial encounter; Z87.891 Personal history of nicotine dependence; S62.306A Unspecified fracture of fifth metacarpal bone, right hand, initial encounter for closed fracture; X58.XXXA Exposure to other specified factors, initial encounter; Y93.9 Activity, unspecified; Y92.239 Unspecified place in hospital as the place of occurrence of the external cause; Z22.322 Carrier or suspected carrier of Methicillin resistant Staphylococcus aureus; F32.9 Major depressive disorder, single episode, unspecified; E88.09 Other disorders of plasma-protein metabolism, not elsewhere classified; D64.9 Anemia, unspecified; R73.9 Hyperglycemia, unspecified; I07.1 Rheumatic tricuspid insufficiency
CPT/HCPCS: 25605; 29125; 31500; 31600; 31624; 32551; 32557; 36430; 36556; 36600; 70450; 70551; 71045; 71250; 71260; 72125; 72170; 73070; 73080; 73090; 73100; 73200; 74018; 74177; 76000; 76705; 76937; 80048; 80053; 80076; 81001; 82550; 82552; 82805; 83605; 83735; 84100; 84132; 84134; 84145; 84478; 85007; 85025; 85027; 85610; 85730; 86403; 86850; 86900; 86901; 86920; 87040; 87070; 87086; 87106; 87147; 87186; 87205; 87493; 87641; 90471; 90715; 93005; 93306; 93970; 94002; 94003; 94640; 94664; 94770; 94799; 95819; 96374; 96375; 99152; 99291; C1713; C1729; C1769; C9113; G0390; J0131; J0690; J0696; J1100; J1120; J1230; J1325; J1580; J1650; J1885; J1940; J2020; J2250; J2270; J2370; J2405; J3010; J3370; J3480; J3486; J7030; J7040; J7050; J7120; P9016; P9047; Q9967